=== PATIENT | male | born 1965 | race Hispanic/Latino ===

== ENCOUNTER 2018-09-03 08:39 | Emergency (ER) | payer OTHER, SELFPAY ==
[2018-09-03] MEDS ORDERED: SODIUM CHLORIDE 0.9% 1000ML 1,000 ML IV ONE (09:38)
[2018-09-03 09:43] LABS: BASOPHILS % (AUTO) 0.5 % (0.0-5.0); EOSINOPHILS % (AUTO) 3.4 % (0.0-8.0); HEMATOCRIT 32.9 % (42-54); LYMPHOCYTES % (AUTO) 24.1 % (21.0-51.0); MEAN CORPUSCULAR HGB CONC 30.8 g/dL (32.0-36.0); MEAN CORPUSCULAR VOLUME 64.8 fL (79-99); MONOCYTES % (AUTO) 11.1 % (3.0-13.0); NEUTROPHILS % (AUTO) 60.9 % (40.0-77.0); NUCLEATED RED BLOOD CELLS 0.1 % (0.0-0.19); PLATELET COUNT (AUTO) 243 K/uL (130-400); RED BLOOD CELL COUNT(AUTO) 5.08 MIL/uL (4.50-6.20); RED CELL DISTRIBUTION WIDTH 17.9 % (11.0-15.5)
[2018-09-03 09:51] LABS: POTASSIUM 3.3 mmol/L (3.5-5.1)
[2018-09-03 09:55] LABS: BILIRUBIN,TOTAL 0.3 mg/dL (0.2-1.0); TOTAL PROTEIN, SERUM 8.1 g/dL (6.0-8.3)
[2018-09-03] MEDS ORDERED: POTASSIUM CHLORIDE 20 MEQ ERTAB PO ONE (10:34)
[2018-09-03 10:40] LABS: APPEARANCE,URINE CLEAR (CLEAR); BILIRUBIN,URINE NEGATIVE (NEGATIVE); COLOR,URINE YELLOW (YELLOW); GLUCOSE, URINE (UA) NEGATIVE (NEGATIVE); KETONES,URINE NEGATIVE (NEGATIVE); LEUKOCYTE ESTERASE ,URINE NEGATIVE (NEGATIVE); NITRATE,URINE NEGATIVE (NEGATIVE); OCCULT BLOOD,URINE NEGATIVE (NEGATIVE); PH,URINE 5.5 (5.0-8.0); PROTEIN,URINE TRACE mg/dL (NEGATIVE); UROBILINOGEN,URINE 0.2 mg/dL (0.2-1.0)
[2018-09-03 10:50] LABS: RBC,URINE 0-1 /HPF (0-1); WBC,URINE 0-1 /HPF (0-1)
[2018-09-03 10:51] LABS: BACTERIA,URINE Rare /HPF (None Seen); HYALINE CASTS, URINE 0-1 /LPF (0-1 /LPF); MUCUS,URINE Few LPF (None Seen); SQUAMOUS EPITHELIAL CELL,UR 0-2 /HPF (0-2)
== END 2018-09-03 10:45 | disposition home or self-care (01) ==
LOC: EDH 08:39
DX: E87.6 Hypokalemia (principal); R19.7 Diarrhea, unspecified; D64.9 Anemia, unspecified; I10 Essential (primary) hypertension; K21.9 Gastro-esophageal reflux disease without esophagitis; Z91.013 Allergy to seafood
CPT/HCPCS: 36415; 80053; 81001; 83690; 85025; 96360; 99284; J7030

== ENCOUNTER 2024-09-23 08:17 | Inpatient (IN) | payer SELFPAY ==
[~2024-09-23] VITALS: Ht 167.6 cm; Wt 79.0 kg
--- NOTE | 2024-09-23 09:00 | ERN ---
General Chief Complaint: Hemorrhoids Stated Complaint: HEMORRHOIDS Time Seen by MD: 08:20 Source: patient History of Present Illness Initial Comments Mr. Jensen is a 59-year-old male patient came to the ER with pain in the perianal area. Patient has previous history of recurrent hemorrhoids and rectal prolapse. He says pain started yesterday after a bout of diarrhea associated with fever and chills, but does not have diarrhea today. Patient states he has 10/10 pain, worse during defecation. Patient sates he took 800 mg of Ibuprofen for the pain yesterday. Patient denies constipation and says he passes soft sto ols. Patient states he notices scanty blood on wiping with toilet paper, however had prior episodes of red blood in stools in the preceding months. He had a normal colonoscopy several years ago. Patient has a PMH of anemia and is currently taking iron pills. Allergies: Coded Allergies: shrimp (Unverified Allergy, Unknown, 09/03/18) Past Medical History Past Medical History: Anemia Past Surgical History: None ROS Dictation CONSTITUTIONAL: No chills, no fever, no weakness, no diaphoresis, no malaise. HEAD/FACE: No signs of trauma. EENT: No eye pain, no blurred vision, no tearing, no double vision, no ear pain, no ear discharge, no nose pain, no nasal congestion, no throat pain, no throat swelling, no mouth pain. RESPIRATORY: No cough, no SOB, no orthopnea, no PND, no wheezing. CARDIOVASCULAR: No chest pain, no edema, no palpitations, no syncope. GASTROINTESTINAL/ABDOMINAL: Severe perianal pain, No abdominal pain, no constipation, no diarrhea, no nausea, no vomiting. GENITOURINARY: No abnormal discharge, no dysuria, no frequent urination, no hematuria. No complaints of pain in the genitals. MUSCULOSKELETAL: No back pain, no gout, no joint pain, no joint swelling, no muscle pain, no muscle stiffness, no neck pain. INTEGUMENTARY: No change in color, no change in hair/nails, no dryness, no lesion, no lumps, no rash. NEUROLOGICAL/PSYCH: No anxiety, not depressed, no emotional problem, no headache, no numbness, no pre-existing deficit, no history of seizures, no tremors, no weakness. HEMATOLOGIC/LYMPHATIC: Not anemic, no history of blood clots, no apparent bleeding, no bruising, glands not swollen. All Systems Negative, Except as Noted. Physical Exam Physical Exam Dictation VITAL SIGNS: Reviewed. GENERAL APPEARANCE: Alert, oriented x3 HEAD AND FACE: Non-traumatic. EYES: PERRL, pink conjunctivas, eyelid no trauma, anterior chamber clear. EARS: Pinnas intact and no signs of trauma or erythema. Ear canals clear and no discharge. TMs no erythema. NOSE: No discharge, no bleeding. OROPHARYNX: Mouth normal, teeth no caries, tongue pink. Pharynx clear, no erythema. Tonsils no exudates, no abscesses noted. Mucous membrane moist. NECK: Supple, non-tender, no thyromegaly, no masses, no JVD, no bruits. BREAST: Deferred. CHEST: No tenderness, no crepitus, no paradoxical movement, no retractions. LUNGS: Clear, well-ventilated, symmetric, no rales, no wheezing, no rhonchi, no stridor, good breath sounds bilaterally. HEART: Regular rate, regular rhythm, no murmur, no gallops. VASCULAR: No peripheral edema. ABDOMEN: Soft, positive bowel sounds, nondistended, no guarding, nontender, no rebound, no masses no hepatomegaly, no splenomegaly, no Ayala's sign, no hernias. RECTAL: Nodular irregular swelling in the perianal area, friable skin, skin tags, tender to palpation, clotted blood present, non-reducible . GENITAL: Deferred. NEUROLOGICAL: Normal speech, gross motor function intact, gross sensory function intact. MUSCULOSKELETAL: Neck nontender, full range of motion, back nontender, full range of motion. EXTREMITIES: Nontender, full range of motion. SKIN: Color pink, dry, no turgor, no rash, no lacerations, no abrasions, no contusions. LYMPHATICS: Deferred. Results Laboratory and Microbiology Lab and Micro Result Laboratory Tests Test 09/23/24 09:24 09/23/24 10:46 09/23/24 11:17 Sodium Level 143 mmol/L (136-145) Potassium Level 3.3 mmol/L (3.5-5.1) L Chloride Level 107 mmol/L (101-111) Carbon Dioxide Level 30 mmol/L (21-32) Blood Urea Nitrogen 11 mg/dL (7-18) Creatinine 0.8 mg/dL (0.5-1.3) Glomerular Filtration Rate Calc 101 mL/min (>90) Random Glucose 103 mg/dL (70-105) Total Calcium 8.5 mg/dL (8.5-10.1) White Blood Count 4.2 K/uL (4.8-10.8) L Red Blood Count 3.88 MIL/uL (4.50-6.20) L Hemoglobin 6.1 g/dL (14.0-18.0) *L Hematocrit 23.8 % (42-54) L Mean Corpuscular Volume 61.3 fL (79-99) L Mean Corpuscular Hemoglobin 15.7 pg (27.0-33.0) L Mean Corpuscular Hemoglobin Concent 25.6 g/dL (32.0-36.0) L Red Cell Distribution Width 23.4 % (11.0-15.5) H Platelet Count 445 K/uL (130-400) H Mean Platelet Volume 9.7 fL (7.5-10.5) Immature Granulocyte % (Auto) 3.3 % (0-1) H Neutrophils (%) (Auto) 55.1 % (40.0-77.0) Lymphocytes (%) (Auto) 30.1 % (21.0-51.0) Monocytes (%) (Auto) 10.0 % (3.0-13.0) Eosinophils (%) (Auto) 1.0 % (0.0-8.0) Basophils (%) (Auto) 0.5 % (0.0-5.0) Neutrophils # (Auto) 2.3 K/uL (1.8-7.7) Lymphocytes # (Auto) 1.3 K/uL (1.0-4.8) Monocytes # (Auto) 0.4 K/uL (0.1-1.0) Eosinophils # (Auto) 0.04 K/uL (0.00-0.70) Basophils # (Auto) 0.02 K/uL (0.00-0.20) Absolute Immature Granulocyte (auto 0.14 K/uL (0-1) Segmented Neutrophils % 50 % (40-70) Lymphocytes % (Manual) 25 % (22-44) Monocytes % (Manual) 13 % (2-9) H Eosinophils % (Manual) 1 % (1-6) Metamyelocytes % 1 % (0-0) H Myelocytes % 2 % (0-0) H Promyelocytes % 2 (0-0) H Nucleated Red Blood Cells 3.0 % (0.0-0.19) H Differential Comment Reactive Lymphocytes 6 % (0-0) H White Cell Morphology Comment See comments Platelet Morphology Comment ADEQUATE Red Blood Cell Morphology See comments Urine Color LIGHT-BROWN (YELLOW) Urine Appearance CLEAR (CLEAR) Urine pH 5.5 (5.0-8.0) Urine Specific [place] 1.011 (1.001-1.031) Urine Protein NEGATIVE mg/dL (NEGATIVE) Urine Glucose (UA) NEGATIVE mg/dL (NEGATIVE) Urine Ketones NEGATIVE mg/dL (NEGATIVE) Urine Occult Blood NEGATIVE (NEGATIVE) Urine Nitrate NEGATIVE (NEGATIVE) Urine Bilirubin NEGATIVE mg/dL (NEGATIVE) Urine Urobilinogen 0.2 mg/dL (0.2-1.0) Urine Leukocyte Esterase NEGATIVE [place]/uL Labs Reviewed?: Yes EKG/XRAY/US/CT/MRI CT Scan Comment [place] [id number] [address] IMAGING REPORT Signed PATIENT: ALEXANDER JENSEN MR#: [id number] : 1965 SEX: M AGE: 59 LOCATION: [facility] ORDER 9 STATUS: [facility] REPORT#: [id number] SERVICE 6 REASON: SUSPICIOUS MALIGNANT PERIANAL LESION ORDERING PHYSICIAN: LAKEISHA ESTRADA MD PROCEDURE: ABD PEL WO - CT ABDOMEN/PELVIS W/O CONTRAST EXAM: CT Abdomen and Pelvis Without IV contrast CLINICAL HISTORY: SUSPICIOUS MALIGNANT PERIANAL LESION TECHNIQUE: Axial computed tomography images of the abdomen and pelvis without intravenous contrast. CONTRAST: No IV contrast. COMPARISON: None provided. FINDINGS: LUNG BASES: The lung bases appear clear. No pleural effusions are seen. LIVER: Unremarkable. GALLBLADDER AND BILE DUCTS: The gallbladder appears within normal limits. No radioopaque gallstones are seen. No biliary ductal dilatation is evident. PANCREAS: Unremarkable. SPLEEN: Unremarkable. ADRENAL GLANDS: Unremarkable. KIDNEYS, URETERS, AND BLADDER: The kidneys appear within normal limits. There is no hydronephrosis or hydroureter. No urinary calculi are seen. STOMACH AND BOWEL: Large sliding and paraesophageal hiatus hernia. Irregular thickening in the rectum. Tiny peripheral calcific foci. Colonic diverticulosis without diverticulitis. Unremarkable appearance of the small bowel. No evidence of bowel obstruction. APPENDIX: No evidence of acute appendicitis on CT examination. PERITONEUM: No free fluid. No free air. LYMPH NODES: No lymphadenopathy is evident. REPRODUCTIVE: Unremarkable as visualized. VASCULATURE: Atherosclerotic changes in the form of eccentric vessel wall calcification in the abdominal aorta and its major branches. No evidence of abdominal aortic aneurysm. BONES: Degenerative changes in the visualised spine in the form of marginal osteophytes and degenerative discs at multiple lumbar levels. Sclerotic focus at L2 vertebra. These may reflect bone islands. No aggressive appearing osseous lesion. No acute osseous pathology is evident. IMPRESSION: 1. Irregular rectal wall thickening. Suggested histopathological correlation. 2. Large sliding and paraesophageal hiatal hernia. 3. Colonic diverticulosis without diverticulitis. /[place] DICTATED BY: BRIAN MEDRANO Jr., MD DATE: 09/23/241441 ELECTRONICALLY SIGNED BY: BRIAN MEDRANO Jr., MD DATE: 09/23/241441 [facility] MDM: Differential diagnosis: Prolapsed rectum, colorectal cancer, Teratoma of anus, thrombosed hemorrhoids, Iron deficiency anemia for GI blood loss. Rationale: Tests considered and ordered secondary to shared decision making include: Previous outside records reviewed: Old ER visits. Risk of complication and/or morbidity or mortality of patient management: None Medications-Per medication reconciliation Need for hospitalization: Patient does meet criteria for hospitalization. Need for emergency major/minor surgery: No There are no social concerns with this patient. Prescription drug management Prescriptions will include symptomatic care Patient presented to the ED with pain in the perianal region since last night. On examination a friable, tender, irregular mass noted in the anal canal. Lizzeth ent blood work revealed severe iron deficiency anemia Hgb 6, HCT 23.8. Patient refused blood transfusion due to congregational reasons. Patient CT showed irregular rectal wall thickening. Patient was given symptomatic treatment for pain with Acetaminophen and topical Lidocaine. We decided to admit the patient for management of anemia and evaluation for Colorectal cancer. ED Course Orders Procedure Category Date Status Time Lidocaine Hcl 1% 20ml PHA 09/23/24 Complete Vial (Lidocaine Hc 08:46 Tetanus,Diphtheria PHA 09/23/24 Complete Tox [Adult] (Diphther 09:00 Basic Metabolic Panel LAB 09/23/24 Complete 09:17 Ct Abdomen/Pelvis W/O CT 09/23/24 Resulted Contrast 09:17 Cbc With Differential LAB 09/23/24 Complete 10:45 Urinalysis Profile LAB 09/23/24 Complete 11:19 Manual Differential LAB 09/23/24 Complete 10:46 Acetaminophen 500mg PHA 09/23/24 Complete Tab (Tylenol 500mg T 12:30 Lidocaine Hcl 2% PHA 09/23/24 Complete Viscous (Lidocaine Hcl 12:30 Current Medications Medications (Trade) Dose Ordered Sig/Criselda Route PRN Reason Start Time Stop Time Status Last Admin Dose Admin Acetaminophen (TYLenol 500MG TAB) 1,000 mg ONCE ONCE PO 09/23/24 12:30 09/23/24 12:31 DC 09/23/24 13:54 Lidocaine HCl (Lidocaine HCl 1% 20ml Vial) 20 ml ONCE STAT INJ 09/23/24 08:46 09/23/24 08:50 DC 09/23/24 09:03 Lidocaine HCl (Lidocaine HCl 2% Viscous) 10 ml ONCE ONCE MM 09/23/24 12:30 09/23/24 12:31 DC 09/23/24 13:54 Tetanus/ Diphtheria Toxoids Adsorbed (DiphthERIA-teTANUS TOXOID [ADULT]/ DECAVAC) 0.5 ml ONCE ONCE IM 09/23/24 09:00 09/23/24 09:01 DC 09/23/24 09:06 Vital Signs Date Time Temp Pulse Resp B/P (MAP) Pulse Ox O2 Delivery O2 Flow Rate FiO2 09/23/24 12:23 76 18 139/69 99 Room Air* 0 21 09/23/24 09:41 98.8 82 18 153/63 99 Room Air* 0 21 09/23/24 08:35 98.8 80 18 151/82 99 Room Air* 0 21 09/23/24 08:19 98.8 82 19 147/82 99 Room Air 0 DX & DISP Disposition: Inpatient Decision to Admit Time: 14:15 Departure Impression: Primary Impression: Perianal lesion Additional Impressions: Iron deficiency anemia due to chronic blood loss, Hypokalemia Condition: Stable Referrals: MIGUEL PIERRE MD (PCP) LAKEISHA ESTRADA MD Sep 23, 2024 09:00 COLLETTE MORRELL MD Sep 23, 2024 13:48
[2024-09-23] MEDS: LIDOCAINE HCL 1% 20 ML VIAL INJ STA (09:03)
[2024-09-23 09:47] LABS: CREATININE 0.8 mg/dL (0.5-1.3); GLOMERULAR FILTR. RATE CALC 101.0 mL/min (>90); GLUCOSE,RANDOM 103.0 mg/dL (70-105); SODIUM SERUM 143.0 mmol/L (136-145); UREA NITROGEN, BLOOD 11.0 mg/dL (7-18)
[2024-09-23 11:33] LABS: IMMATURE GRANULOCYTE ABSOLUTE 0.14 K/uL (0-1); PLATELET COUNT (AUTO) 445 K/uL (130-400); RED BLOOD CELL COUNT(AUTO) 3.88 MIL/uL (4.50-6.20); RED CELL DISTRIBUTION WIDTH 23.4 % (11.0-15.5); WHITE BLOOD COUNT (AUTO) 4.2 K/uL (4.8-10.8)
[2024-09-23 11:47] LABS: APPEARANCE,URINE CLEAR (CLEAR); GLUCOSE, URINE (UA) NEGATIVE (NEGATIVE); LEUKOCYTE ESTERASE ,URINE NEGATIVE Leu/uL (NEGATIVE); NITRATE,URINE NEGATIVE (NEGATIVE); OCCULT BLOOD,URINE NEGATIVE (NEGATIVE)
--- NOTE | 2024-09-23 11:47 | NUR ---
PT AOX4 AWARE OF HBG/HCT LEVELS AND NEEDING A BLOOD TRANSFUSION. PT REFUSING BLOOD TRANSFUSION. ADVISED OF THE POSSIBLE RISKS OF REFUSING TREATMENT. CONTINUES TO REFUSE. NOTIFIED ER REFUSAL OF TREATMENT DONE.
[2024-09-23 11:57] LABS: ADD UA MICROSCOPIC NO
[2024-09-23 12:26] LABS: EOSINOPHILS % (MANUAL) 1 % (1-6); LYMPHOCYTES % (MANUAL) 25 % (22-44); METAMYELOCYTES % 1 % (0-0); MONOCYTES % (MANUAL) 13 % (2-9); MYELOCYTES % 2 % (0-0); NUCLEATED RED BLOOD CELLS 3.0 % (0.0-0.19); PROMYELOCYTES % 2 (0-0); REACTIVE LYMPHOCYTES 6 % (0-0); SEGMENTED NEUTROPHILS % 50 % (40-70)
[2024-09-23 12:30] LABS: PLATELET MORPHOLOGY COMMENT ADEQUATE
--- NOTE | 2024-09-23 13:43 | HMCIMG ---
EXAM: CT Abdomen and Pelvis Without IV contrast CLINICAL HISTORY: SUSPICIOUS MALIGNANT PERIANAL LESION TECHNIQUE: Axial computed tomography images of the abdomen and pelvis without intravenous contrast. CONTRAST: No IV contrast. COMPARISON: None provided. FINDINGS: LUNG BASES: The lung bases appear clear. No pleural effusions are seen. LIVER: Unremarkable. GALLBLADDER AND BILE DUCTS: The gallbladder appears within normal limits. No radioopaque gallstones are seen. No biliary ductal dilatation is evident. PANCREAS: Unremarkable. SPLEEN: Unremarkable. ADRENAL GLANDS: Unremarkable. KIDNEYS, URETERS, AND BLADDER: The kidneys appear within normal limits. There is no hydronephrosis or hydroureter. No urinary calculi are seen. STOMACH AND BOWEL: Large sliding and paraesophageal hiatus hernia. Irregular thickening in the rectum. Tiny peripheral calcific foci. Colonic diverticulosis without diverticulitis. Unremarkable appearance of the small bowel. No evidence of bowel obstruction. APPENDIX: No evidence of acute appendicitis on CT examination. PERITONEUM: No free fluid. No free air. LYMPH NODES: No lymphadenopathy is evident. REPRODUCTIVE: Unremarkable as visualized. VASCULATURE: Atherosclerotic changes in the form of eccentric vessel wall calcification in the abdominal aorta and its major branches. No evidence of abdominal aortic aneurysm. BONES: Degenerative changes in the visualised spine in the form of marginal osteophytes and degenerative discs at multiple lumbar levels. Sclerotic focus at L2 vertebra. These may reflect bone islands. No aggressive appearing osseous lesion. No acute osseous pathology is evident. IMPRESSION: 1. Irregular rectal wall thickening. Suggested histopathological correlation. 2. Large sliding and paraesophageal hiatal hernia. 3. Colonic diverticulosis without diverticulitis. /[place]
[2024-09-23] MEDS: LIDOCAINE HCL 2% VISCOUS 15 ML UDCUP MM ONE (13:54)
--- NOTE | 2024-09-23 14:00 | NUR ---
DR ANTHONY AT BEDSIDE
[2024-09-23] MEDS: 0.9%NACL 1000ML 1,000 ML IV SCH (14:30)
--- NOTE | 2024-09-23 14:52 | NUR ---
DR BARTLETT GI CONSULT DONE BY DR ANTHONY Addendum: 09/23/24 at [address] BARTLETT AWARE WILL SEE PATIENT NO NEW ORDERS AT THIS TIME
--- NOTE | 2024-09-23 14:53 | NUR ---
DR [facility] CONSULT CALLED AND AWARE.
--- NOTE | 2024-09-23 14:53 | NUR ---
DR MA HEMATOLOGY CALLED.
[2024-09-23] MEDS: PoTASSium chloRIDE 20MEQ ER 20 MEQ ERTAB PO ONE ×2 (15:00→20:59)
[2024-09-23 15:03] LABS: ASPARTATE AMINOTRANSFERASE 14.0 U/L (10-37); TOTAL PROTEIN, SERUM 7.3 g/dL (6.0-8.3)
--- NOTE | 2024-09-23 15:31 | NUR ---
REPORT CALLED AND GIVEN TO TRANG AT THIS TIME.
[2024-09-23 15:33] LABS: INR 1.12 (0.85-1.15)
[2024-09-23 15:34] LABS: % IRON SATURATION 4.4 % (30-44); IRON, SERUM 19.0 mcg/dL (65-175)
[2024-09-23 15:50] VITALS: BP 139/82; PULSE 78; RESP 18; TEMP 98.7; O2SAT 98
--- NOTE | 2024-09-23 16:51 | HP ---
[facility] HISTORY AND PHYSICAL Date of Service: Sep 23, 2024 Time of Service: 16:43 HISTORY OF PRESENT ILLNESS: Date of service: 09/23/2024, patient was seen in ER room 16 This is a 59-year-old male who is a Latter-day with history of anemia, prior history of hemorrhoids, possible prior history of rectal prolapse, who presented to the ER for further evaluation of rectal pain, tenesmus with having a bowel movement. Pain started about 3-4 days ago and is worsened with having a bowel movement. Patient also noticed blood with wiping. Patient states that he saw his PCP few days ago and was referred to a specialist for further evaluati on. Reports having previous history of hemorrhoids as well with intermittent mild bleeding. Patient reports that maybe about 10 years ago, he had possible history of rectal prolapse which was reduced by a specialist. He has had colonoscopy 5-6 years ago and does not remember the results. Denies any significant fevers or chills otherwise. Denies previous history of gastric ucle rs. Patient states that he is using ibuprofen about four times a day for pain control for about a week. He has also been taking iron. He has noticed that few days ago, stool was dark in color. Denies any hematemesis. Patient has declined any blood transfusion as he is a Latter-day. He has been told previously about a year ago that he is anemic. On presentation to the hospital, patient was noted to be afebrile with T-max of 98.8 F, heart rate of 82, blood pressure of 147/82. Labs on presentation showed WBC count of 4200, hemoglobin of 6.1, platelet count of 268248. BMP remarkable for sodium of 143, potassium 3.3, BUN of 11 , creatinine 0.8. Underwent CT abdomen pelvis without IV contrast showed irregular rectal wall thickening. Per ER physician, rectal examination showed nodular irregular swelling in the perianal area with hemorrhoids and possible rectal mass. Patient will be admitted for further treatment and management. Patient's case was discussed with Dr. Quintanilla with Gastroenterology and patient's case was also discussed with Dr. Brooks with General surgery. We will start patient on IV iron supplementation given severe anemia as well. REVIEW OF SYSTEMS CONSTITUTIONAL: Denies fevers, chills, or night sweats. No unintentional weight loss reported. NEUROLOGICAL: Denies headache, amaurosis fugax, motor weakness, sensory deficit, vertigo/spinning sensation, gait abnormalities, or tremors. ENT: No hearing loss, otalgia, otorrhea, rhinitis, rhinorrhea, hoarseness, or sore throat. CARDIOVASCULAR: Denies any exertional angina, dyspnea on exertion, orthopnea, paroxysmal nocturnal dyspnea, palpitations, life-threatening arrhythmias, claudication. PULMONARY: Denies any shortness of breath, cough, phlegm/sputum, hemoptysis, pleuritic chest pain. SLEEP: Denies morning headaches, daytime somnolence or napping. Denies difficulty falling asleep, staying asleep, waking from sleep. Denies knowledge of snoring. GASTROINTESTINAL: rectal pain, tenesmus, hx of hemorrhoids, hematochezia when he wipes GENITOURINARY: Denies frequency, urgency, nocturia, hematuria or incontinence (Storage/Irritative symptoms.) Low urinary stream, straining to void, urinary intermittency or hesitancy, splitting of the voiding stream, terminal dribbling. ENDOCRINOLOGIC: Denies polyuria, polydipsia, polyphagia or heat/cold intolerances. HEMATOLOGIC: Denies thrombophilia/previous clots, or coagulopathy/bleeding disorders. ONCOLOGIC: Denies personal history of malignancy. DERMATOLOGIC: Denies rashes or pruritus. PSYCHIATRIC: Denies any suicidal or homicidal ideation. Denies hallucinations. PAST MEDICAL HISTORY: History of anemia, history of hemorrhoids, possible history of rectal prolapse several years ago PAST SURGICAL HISTORY: Reports having had colonoscopy pre COVID, about 5-6 years ago PAST SOCIAL HISTORY: Denies active smoking, drinks socially FAMILY HISTORY: Mother had breast cancer about 40-50 years ago Allergies to shrimp Coded Allergies: shrimp (Unverified Allergy, Unknown, 09/03/18) PHYSICAL EXAM GENERAL APPEARANCE: The patient is awake, alert, and oriented, in no acute cardiopulmonary distress. NEUROLOGICAL: Cranial nerves II-XII grossly intact. Motor is 5/5 in bilateral upper and lower extremities proximal to distal. No sensory deficits. HEENT: Face is symmetric. Pupils are equal and reactive. Extraocular movements are intact. NECK: Supple. No JVD. No thyromegaly. No submental, submandibular, pre- /postauricular, occipital or supraclavicular lymphadenopathy. CHEST: Normal chest expansion. No Telemetry. LUNGS: Absence of any rales, rhonchi or any wheezing. CARDIOVASCULAR: Regular. S1 and S2 normal. No appreciable rubs, murmurs or gallops. ABDOMEN: Soft, nontender, and nondistended. There is no rebound, voluntary guarding, or rigidity. : couldn't do a through rectal exam due to pain, there is swelling around to anorectal region with possible hemorrhoids or prolapse EXTREMITIES: Non-edematous and not cyanotic. No clubbing. Good capillary refill. SKIN: No skin breakdown. Vital Sign (Last 24 Hours) 09/23/24 14:39 Temp 98.8 Pulse 72 Resp 18 B/P (MAP) 127/68 Pulse Ox 99 O2 Delivery Room Air* O2 Flow Rate 0 FiO2 21 LABS: Laboratory: Test 09/23/24 15:10 09/23/24 11:17 09/23/24 10:46 09/23/24 09:24 Range/Units Prothrombin Time 11.7 H 9.6-11.6 SEC Prothromb Time International Ratio 1.12 0.85-1.15 Activated Partial Thromboplast Time 26.9 26.3-35.5 SEC Iron Level 19 L 65-175 mcg/dL Total Iron Binding Capacity 428 250-450 mcg/dL Percent Iron Saturation 4.4 L 30-44 % Ferritin 9 L 30-400 ng/mL Urine Color LIGHT-BROWN YELLOW Urine Appearance CLEAR CLEAR Urine pH 5.5 5.0-8.0 Urine Specific [place] 1.011 1.001-1.031 Urine Protein NEGATIVE NEGATIVE mg/dL Urine Glucose (UA) NEGATIVE NEGATIVE mg/dL Urine Ketones NEGATIVE NEGATIVE mg/dL Urine Occult Blood NEGATIVE NEGATIVE Urine Nitrate NEGATIVE NEGATIVE Urine Bilirubin NEGATIVE NEGATIVE mg/dL Urine Urobilinogen 0.2 0.2-1.0 mg/dL Urine Leukocyte Esterase NEGATIVE NEGATIVE Chap[place]rit[place]/uL White Blood Count 4.2 L 4.8-10.8 K/uL Red Blood Count 3.88 L 4.50-6.20 MIL/uL Hemoglobin 6.1 *L 14.0-18.0 g/dL Hematocrit 23.8 L 42-54 % Mean Corpuscular Volume 61.3 L 79-99 fL Mean Corpuscular Hemoglobin 15.7 L 27.0-33.0 pg Mean Corpuscular Hemoglobin Concent 25.6 L 32.0-36.0 g/dL Red Cell Distribution Width 23.4 H 11.0-15.5 % Platelet Count 445 H 130-400 K/uL Mean Platelet Volume 9.7 7.5-10.5 fL Immature Granulocyte % (Auto) 3.3 H 0-1 % Neutrophils (%) (Auto) 55.1 40.0-77.0 % Lymphocytes (%) (Auto) 30.1 21.0-51.0 % Monocytes (%) (Auto) 10.0 3.0-13.0 % Eosinophils (%) (Auto) 1.0 0.0-8.0 % Basophils (%) (Auto) 0.5 0.0-5.0 % Neutrophils # (Auto) 2.3 1.8-7.7 K/uL Lymphocytes # (Auto) 1.3 1.0-4.8 K/uL Monocytes # (Auto) 0.4 0.1-1.0 K/uL Eosinophils # (Auto) 0.04 0.00-0.70 K/uL Basophils # (Auto) 0.02 0.00-0.20 K/uL Absolute Immature Granulocyte (auto 0.14 0-1 K/uL Segmented Neutrophils % 50 40-70 % Lymphocytes % (Manual) 25 22-44 % Monocytes % (Manual) 13 H 2-9 % Eosinophils % (Manual) 1 1-6 % Metamyelocytes % 1 H 0-0 % Myelocytes % 2 H 0-0 % Promyelocytes % 2 H 0-0 Nucleated Red Blood Cells 3.0 H 0.0-0.19 % Differential Comment Reactive Lymphocytes 6 H 0-0 % White Cell Morphology Comment See comments Platelet Morphology Comment ADEQUATE Red Blood Cell Morphology See comments Sodium Level 143 136-145 mmol/L Potassium Level 3.3 L 3.5-5.1 mmol/L Chloride Level 107 101-111 mmol/L Carbon Dioxide Level 30 21-32 mmol/L Blood Urea Nitrogen 11 7-18 mg/dL Creatinine 0.8 0.5-1.3 mg/dL Glomerular Filtration Rate Calc 101 >90 mL/min Random Glucose 103 70-105 mg/dL Total Calcium 8.5 8.5-10.1 mg/dL Magnesium Level 2.20 1.80-2.40 mg/dL Total Bilirubin 0.5 0.2-1.0 mg/dL Direct Bilirubin 0.1 0.0-0.3 mg/dL Aspartate Amino Transf (AST/SGOT) 14 10-37 U/L Alanine Aminotransferase (ALT/SGPT) 23 12-78 U/L Alkaline Phosphatase 81 50-136 U/L Total Protein 7.3 6.0-8.3 g/dL Albumin 3.8 3.5-5.0 g/dL Thyroid Stimulating Hormone (TSH) 0.89 0.36-3.74 uIU/mL Current Medications Medications (Trade) Dose Ordered Sig/Criselda Route PRN Reason Start Time Stop Time Status Last Admin Dose Admin Acetaminophen (TYLenol 325MG TAB) 650 mg Q6H PRN PO MILD PAIN (1-3) 09/23/24 15:00 10/23/24 14:59 Folic Acid (FOLic ACID 1 MG TABLET) 1 mg DAILY PO 09/24/24 09:00 10/24/24 08:59 Iron Sucrose 300 mg/Sodium Chloride 250 ml @ 83 mls/hr Q24H IV 09/23/24 18:00 09/26/24 17:59 Lidocaine HCl (Lidocaine HCl 1% 20ml Vial) 20 ml ONCE STAT INJ 09/23/24 08:46 09/23/24 08:50 DC 09/23/24 09:03 20 ML Morphine Sulfate (morPHINE 2MG SYG) 2 mg Q6H PRN IVP SEVERE PAIN (7-10) 09/23/24 15:00 09/30/24 14:59 Ondansetron HCl (zoFRAN 4MG INJ) 4 mg Q6H PRN IVP NAUSEA/VOMITING 09/23/24 15:00 10/23/24 14:59 Pantoprazole Sodium (PROTonix 40MG INJ) 40 mg Q12H IVP 09/23/24 14:30 10/23/24 14:29 Sodium Chloride 1,000 ml @ 75 mls/hr [id number] IV 09/23/24 14:30 10/23/24 14:29 Vitamin B Complex (Vitamin B-12) 1,000 mcg DAILY PO 09/24/24 09:00 10/24/24 08:59 DIAGNOSTICS / RADIOLOGY: SERVICE 6 REASON: SUSPICIOUS MALIGNANT PERIANAL LESION ORDERING PHYSICIAN: LAKEISHA ESTRADA MD PROCEDURE: ABD PEL WO - CT ABDOMEN/PELVIS W/O CONTRAST EXAM: CT Abdomen and Pelvis Without IV contrast CLINICAL HISTORY: SUSPICIOUS MALIGNANT PERIANAL LESION TECHNIQUE: Axial computed tomography images of the abdomen and pelvis without intravenous contrast. CONTRAST: No IV contrast. COMPARISON: None provided. FINDINGS: LUNG BASES: The lung bases appear clear. No pleural effusions are seen. LIVER: Unremarkable. GALLBLADDER AND BILE DUCTS: The gallbladder appears within normal limits. No radioopaque gallstones are seen. No biliary ductal dilatation is evident. PANCREAS: Unremarkable. SPLEEN: Unremarkable. ADRENAL GLANDS: Unremarkable. KIDNEYS, URETERS, AND BLADDER: The kidneys appear within normal limits. There is no hydronephrosis or hydroureter. No urinary calculi are seen. STOMACH AND BOWEL: Large sliding and paraesophageal hiatus hernia. Irregular thickening in the rectum. Tiny peripheral calcific foci. Colonic diverticulosis without diverticulitis. Unremarkable appearance of the small bowel. No evidence of bowel obstruction. APPENDIX: No evidence of acute appendicitis on CT examination. PERITONEUM: No free fluid. No free air. LYMPH NODES: No lymphadenopathy is evident. REPRODUCTIVE: Unremarkable as visualized. VASCULATURE: Atherosclerotic changes in the form of eccentric vessel wall calcification in the abdominal aorta and its major branches. No evidence of abdominal aortic aneurysm. BONES: Degenerative changes in the visualised spine in the form of marginal osteophytes and degenerative discs at multiple lumbar levels. Sclerotic focus at L2 vertebra. These may reflect bone islands. No aggressive appearing osseous lesion. No acute osseous pathology is evident. IMPRESSION: 1. Irregular rectal wall thickening. Suggested histopathological correlation. 2. Large sliding and paraesophageal hiatal hernia. 3. Colonic diverticulosis without diverticulitis. /[place] ASSESSMENT: Severe iron Deficiency anemia, POA Acute on chronic anemia likely secondary to chronic GI bleeding, POA Rectal thickening with concerns for possible rectal prolapse versus hemorrhoids vs mass, POA Hiatal hernia, POA Prior history of hemorrhoids and rectal prolapse, POA Latter-day declining blood product transfusion, POA Hypokalemia, POA PLAN: Patient will be admitted to medical-surgical floor under telemetry monitoring Patient has declined any blood product transfusion, we will start patient on IV iron sucrose therapy x3 days, consultation with pulmonology will be requested, we will start patient on daily folic acid and vitamin B12 supplementation, we can also consider Epogen shot tomorrow Patient's case was discussed with Dr. Quintanilla with Gastroenterology, likely patient has hemorrhoids with rectals prolapse and will need r/o any mass lesion, patient will benefit from proctoscopy/colonoscopy for further evaluation, patient may benefit from EGD as well due to large hiatal hernia noted on abdominal CT We will start patient on IV Protonix 40 mg twice daily We will start patient on normal saline for IV fluids We will keep patient on SCDs for DVT prophylaxis All lab work to be done with pediatric tubes only We will recheck a CBC tomorrow, we will minimize any blood draws, we will check a CEA level as well Patient's case was discussed with Dr. Brooks with surgery, appreciate recommendations Monitor closely for fevers, signs of infection, empiric antibiotics if needed Date of service: 09/23/2024 Prognosis: Guarded Plan of care was discussed with patient at bedside, Sam Nowak MD Advanced Care Planning: Which of the following were discussed: Hospice care: Yes __ No _X_ Therapeutic options: Yes _X_ No __ Advance directives: Yes _X_ No __ Other discussions: Discussed with who?: Patient Voluntary nature of this service was explained to the patient? Yes _x_ No __ Amount of time spent: 20 minutes SAM NOWAK MD Sep 23, 2024 16:51
[2024-09-23 17:04] LABS: LACTATE DEHYDROGENASE 349.0 U/L (81-234)
--- NOTE | 2024-09-23 18:00 | NUR ---
PHYSICIAN ORDERS SPOKE WITH DR. BARTLETT, PER MD ORDER,START PATIENT ON CLEAR LIQUIDS ADMINISTER MAGNESIUM CITRATE AND LACTULOSE NOW. ADMINISTER DULCOLAX 10 MG PO AT 2100. PREPARE PATIENT FOR EDG 09/24, PER DR. BARTLETT WILL CALL WITH TIME LATER.
[2024-09-23] MEDS: LACTULOSE 20 GM/30 ML UDCUP PO ONE (19:43)
[2024-09-23] MEDS: MAGNESIUM CITRATE 296 ML SOLUTION PO ONE (19:43)
[2024-09-23 20:00] VITALS: BP 130/70; PULSE 84; RESP 20; TEMP 98.5
[2024-09-23] MEDS: ASCORBIC ACID 500 MG TAB PO SCH (22:30)
[2024-09-23 23:49] VITALS: BP 128/77; PULSE 73; RESP 20; TEMP 98.3
[2024-09-24] VITALS (14 sets, daily range): BP systolic 106–133; BP diastolic 55–80; PULSE 57–79; RESP 16–18; TEMP 98.4–98.8; O2SAT 99
--- NOTE | 2024-09-24 06:57 | NUR ---
PATIENT OFF UNIT FOR EGD AT THIS TIME
[2024-09-24] MEDS ORDERED: GLYCOPYRROLATE 0.2 MG/ML 5 ML VIAL ONE (07:08)
[2024-09-24] MEDS ORDERED: MIDAZOLAM HCL 1 MG/ML 2ML VIAL ONE (07:08)
[2024-09-24] MEDS ORDERED: LIDOCAINE PF 100MG/5ML (2%) SYRINGE 5ML ONE (07:09)
--- NOTE | 2024-09-24 07:46 | NUR ---
UNIT ARRIVAL PATIENT BACK FROM EGD. AWAKE ALERT AND ORIENTED. VITALS STABLE, PATIENT DENIES PAIN AT THIS TIME.
[2024-09-24] MEDS ORDERED: COMPOUND IV MISC 1 EACH IVSOLN MISC PRN (08:30)
[2024-09-24] MEDS: CYANOCOBALAMIN (VITAMIN B-12) 1,000 MCG TABLET PO SCH (09:15)
--- NOTE | 2024-09-24 10:51 | PN ---
[facility] PROGRESS NOTE Date of Service: Sep 24, 2024 Time of Service: 10:43 SUBJECTIVE: [ ] This is a 59-year-old male who is a Lutheran with history of anemia, prior history of hemorrhoids, possible prior history of rectal prolapse, who presented to the ER for further evaluation of rectal pain, tenesmus with having a bowel movement. Pain started about 3-4 days ago and is worsened with having a bowel movement. Patient also noticed blood with wiping. Patient states that he saw his PCP few days ago and was referred to a specialist for further evaluation. Reports having previous history of hemorrhoids as well with intermittent mild bleeding. Patient reports that maybe about 10 years ago, he had possible history of rectal prolapse which was reduced by a specialist. He has had colonoscopy 5-6 years ago and does not remember the results. Denies any significant fevers or chills otherwise. Denies previous history of GI issues. Patient states that he is using ibuprofen about four times a day for pain con trol for about a week. He has also been taking iron. He has noticed that few days ago, stool was dark in color. Denies any hematemesis. 09/24/2024. Patient went for EGD this morning. Patient continues with IV Venofer given to patient's denominational Jehovah Witness decline blood transfusion latest hemoglobin 6.3. As per Dr. Quintanilla colonoscopy we will be placed on hold for now given to patient's hemoglobin remains below seven. Patient denies abdominal pain patient reports having dark stools post EGD. We will monitor patient closely denied shortness a breath advised patient to use coli for assistance to bathroom voiced understanding. REVIEW OF SYSTEMS CONSTITUTIONAL: Denies fevers, chills, or night sweats. No unintentional weight loss reported. NEUROLOGICAL: Denies headache, amaurosis fugax, motor weakness, sensory deficit, vertigo/spinning sensation, gait abnormalities, or tremors. ENT: No hearing loss, otalgia, otorrhea, rhinitis, rhinorrhea, hoarseness, or sore throat. CARDIOVASCULAR: Denies any exertional angina, dyspnea on exertion, orthopnea, paroxysmal nocturnal dyspnea, palpitations, life-threatening arrhythmias, claudication. PULMONARY: Denies any shortness of breath, cough, phlegm/sputum, hemoptysis, pleuritic chest pain. SLEEP: Denies morning headaches, daytime somnolence or napping. Denies difficulty falling asleep, staying asleep, waking from sleep. Denies knowledge of snoring. GASTROINTESTINAL: rectal pain, tenesmus, hx of hemorrhoids, hematochezia when he wipes GENITOURINARY: Denies frequency, urgency, nocturia, hematuria or incontinence (Storage/Irritative symptoms.) Low urinary stream, straining to void, urinary intermittency or hesitancy, splitting of the voiding stream, terminal dribbling. ENDOCRINOLOGIC: Denies polyuria, polydipsia, polyphagia or heat/cold intolerances. HEMATOLOGIC: Denies thrombophilia/previous clots, or coagulopathy/bleeding disorders. ONCOLOGIC: Denies personal history of malignancy. DERMATOLOGIC: Denies rashes or pruritus. PSYCHIATRIC: Denies any suicidal or homicidal ideation. Denies hallucinations. PHYSICAL EXAM GENERAL APPEARANCE: The patient is awake, alert, and oriented, in no acute cardiopulmonary distress. NEUROLOGICAL: Cranial nerves II-XII grossly intact. Motor is 5/5 in bilateral upper and lower extremities proximal to distal. No sensory deficits. HEENT: Face is symmetric. Pupils are equal and reactive. Extraocular movements are intact. NECK: Supple. No JVD. No thyromegaly. No submental, submandibular, pre- /postauricular, occipital or supraclavicular lymphadenopathy. CHEST: Normal chest expansion. No Telemetry. LUNGS: Absence of any rales, rhonchi or any wheezing. CARDIOVASCULAR: Regular. S1 and S2 normal. No appreciable rubs, murmurs or gallops. ABDOMEN: Soft, nontender, and nondistended. There is no rebound, voluntary guarding, or rigidity. : couldn't do a through rectal exam due to pain, there is swelling around to anorectal region with possible hemorrhoids or mass EXTREMITIES: Non-edematous and not cyanotic. No clubbing. Good capillary refill. SKIN: No skin breakdown. Vital Signs (last 8hr) Date Time Temp Pulse Resp B/P (MAP) Pulse Ox O2 Delivery O2 Flow Rate FiO2 09/24/24 07:35 Mask 10.0 09/24/24 07:25 Mask 10.0 09/24/24 07:20 Mask 10.0 09/24/24 07:10 Mask 10.0 09/24/24 07:10 Mask 09/24/24 03:43 98.4 72 16 121/79 100 Room Air LABS: Laboratory: Test 09/24/24 05:50 09/24/24 04:10 09/23/24 15:10 09/23/24 11:17 Range/Units Stool Occult Blood NEGATIVE NEGATIVE Hemoglobin 6.3 *L 14.0-18.0 g/dL Hematocrit 24.9 L 42-54 % Folic Acid (LAB) > 20.00 H 2-20 ng/mL Erythrocyte Sedimentation Rate 7 0-20 MM/HR Prothrombin Time 11.7 H 9.6-11.6 SEC Prothromb Time International Ratio 1.12 0.85-1.15 Activated Partial Thromboplast Time 26.9 26.3-35.5 SEC Iron Level 19 L 65-175 mcg/dL Total Iron Binding Capacity 428 250-450 mcg/dL Percent Iron Saturation 4.4 L 30-44 % Ferritin 9 L 30-400 ng/mL Lactate Dehydrogenase 349 H 81-234 U/L C-Reactive Protein, Quantitative 16.10 H 0.5-3.0 mg/L Procalcitonin 0.32 0.05-0.5 ng/mL Urine Color LIGHT-BROWN YELLOW Urine Appearance CLEAR CLEAR Urine pH 5.5 5.0-8.0 Urine Specific [place] 1.011 1.001-1.031 Urine Protein NEGATIVE NEGATIVE mg/dL Urine Glucose (UA) NEGATIVE NEGATIVE mg/dL Urine Ketones NEGATIVE NEGATIVE mg/dL Urine Occult Blood NEGATIVE NEGATIVE Urine Nitrate NEGATIVE NEGATIVE Urine Bilirubin NEGATIVE NEGATIVE mg/dL Urine Urobilinogen 0.2 0.2-1.0 mg/dL Urine Leukocyte Esterase NEGATIVE NEGATIVE Chaparrita/uL Test 09/23/24 10:46 09/23/24 09:24 Range/Units White Blood Count 4.2 L 4.8-10.8 K/uL Red Blood Count 3.88 L 4.50-6.20 MIL/uL Mean Corpuscular Volume 61.3 L 79-99 fL Mean Corpuscular Hemoglobin 15.7 L 27.0-33.0 pg Mean Corpuscular Hemoglobin Concent 25.6 L 32.0-36.0 g/dL Red Cell Distribution Width 23.4 H 11.0-15.5 % Platelet Count 445 H 130-400 K/uL Mean Platelet Volume 9.7 7.5-10.5 fL Immature Granulocyte % (Auto) 3.3 H 0-1 % Neutrophils (%) (Auto) 55.1 40.0-77.0 % Lymphocytes (%) (Auto) 30.1 21.0-51.0 % Monocytes (%) (Auto) 10.0 3.0-13.0 % Eosinophils (%) (Auto) 1.0 0.0-8.0 % Basophils (%) (Auto) 0.5 0.0-5.0 % Neutrophils # (Auto) 2.3 1.8-7.7 K/uL Lymphocytes # (Auto) 1.3 1.0-4.8 K/uL Monocytes # (Auto) 0.4 0.1-1.0 K/uL Eosinophils # (Auto) 0.04 0.00-0.70 K/uL Basophils # (Auto) 0.02 0.00-0.20 K/uL Absolute Immature Granulocyte (auto 0.14 0-1 K/uL Segmented Neutrophils % 50 40-70 % Lymphocytes % (Manual) 25 22-44 % Monocytes % (Manual) 13 H 2-9 % Eosinophils % (Manual) 1 1-6 % Metamyelocytes % 1 H 0-0 % Myelocytes % 2 H 0-0 % Promyelocytes % 2 H 0-0 Nucleated Red Blood Cells 3.0 H 0.0-0.19 % Differential Comment Reactive Lymphocytes 6 H 0-0 % White Cell Morphology Comment See comments Platelet Morphology Comment ADEQUATE Red Blood Cell Morphology See comments Sodium Level 143 136-145 mmol/L Potassium Level 3.3 L 3.5-5.1 mmol/L Chloride Level 107 101-111 mmol/L Carbon Dioxide Level 30 21-32 mmol/L Blood Urea Nitrogen 11 7-18 mg/dL Creatinine 0.8 0.5-1.3 mg/dL Glomerular Filtration Rate Calc 101 >90 mL/min Random Glucose 103 70-105 mg/dL Total Calcium 8.5 8.5-10.1 mg/dL Magnesium Level 2.20 1.80-2.40 mg/dL Total Bilirubin 0.5 0.2-1.0 mg/dL Direct Bilirubin 0.1 0.0-0.3 mg/dL Aspartate Amino Transf (AST/SGOT) 14 10-37 U/L Alanine Aminotransferase (ALT/SGPT) 23 12-78 U/L Alkaline Phosphatase 81 50-136 U/L Total Protein 7.3 6.0-8.3 g/dL Albumin 3.8 3.5-5.0 g/dL Thyroid Stimulating Hormone (TSH) 0.89 0.36-3.74 uIU/mL Current Medications Medications (Trade) Dose Ordered Sig/Criselda Route PRN Reason Start Time Stop Time Status Last Admin Dose Admin Acetaminophen (TYLenol 325MG TAB) 650 mg Q6H PRN PO MILD PAIN (1-3) 09/23/24 15:00 10/23/24 14:59 Ascorbic Acid (Vitamin C 500mg Tab) 250 mg BID PO 09/23/24 22:30 10/23/24 22:29 09/24/24 09:15 250 MG Folic Acid (FOLic ACID 1 MG TABLET) 1 mg DAILY PO 09/24/24 09:00 10/24/24 08:59 09/24/24 09:14 1 MG Hydrocortisone Acetate (anuSOL-HC 25MG SUPP) 1 supp DAILY IA 09/23/24 22:30 10/23/24 22:29 Iron Sucrose 300 mg/Sodium Chloride 250 ml @ 83 mls/hr Q24H IV 09/23/24 18:00 09/26/24 22:00 09/23/24 19:43 83 MLS/HR Lidocaine HCl (Lidocaine HCl 1% 20ml Vial) 20 ml ONCE STAT INJ 09/23/24 08:46 09/23/24 08:50 DC 09/23/24 09:03 20 ML Morphine Sulfate (morPHINE 2MG SYG) 2 mg Q6H PRN IVP SEVERE PAIN (7-10) 09/23/24 15:00 09/30/24 14:59 Ondansetron HCl (zoFRAN 4MG INJ) 4 mg Q6H PRN IVP NAUSEA/VOMITING 09/23/24 15:00 10/23/24 14:59 Pantoprazole Sodium (PROTonix 40MG INJ) 40 mg Q12H IVP 09/23/24 14:30 09/24/24 08:24 DC 09/23/24 19:43 40 MG Pantoprazole Sodium (PROTonix 40MG TAB) 40 mg DAILY PO 09/24/24 09:00 10/24/24 08:59 09/24/24 09:14 40 MG Sodium Chloride 1,000 ml @ 75 mls/hr [id number] IV 09/23/24 14:30 10/23/24 14:29 Vitamin B Complex (Vitamin B-12) 1,000 mcg DAILY PO 09/24/24 09:00 10/24/24 08:59 09/24/24 09:15 1,000 MCG DIAGNOSTICS / RADIOLOGY: [ ] ASSESSMENT: Severe iron Deficiency anemia, POA Acute on chronic anemia likely secondary to chronic GI bleeding, POA Rectal thickening with concerns for possible anorectal mass versus hemorrhoids, POA Hiatal hernia, POA Prior history of hemorrhoids and rectal prolapse, POA Lutheran declining blood product transfusion, POA Hypokalemia, POA PLAN: Admit: medical-surgical floor under telemetry monitoring consultants: GI , Pulmologist surgeon will monitor H/H trends while on IV Venofer : declined any blood product transfusion Jehovah Witness, oral supplements: daily folic acid and vitamin B12 supplementation, Procedure: EGD today will follow GI recommendations continue PPI's Protonix Large sliding and paraesophageal hiatal hernia. will follow surgeon Dr. Brooks recommendations. Electrolytes protocol to keep potassium above 4.0 and magnesium above t2.0 supportive measures: SCDs for DVT prophylaxis cbc,cmp in am Fall precautions coli in reach for assistance All questions addressed Further orders as per response to treatment ATTESTATION BY PHYSICIAN I have seen and examined the patient. I reviewed the documentation, medical decision making, and treatment plan as noted by the mid-level provider above. I agree with the findings and plan of care. Margo Cadena MD, ELIZABETH NP Sep 24, 2024 10:50
--- NOTE | 2024-09-24 15:19 | NUR ---
DCP: INITIAL ASSESSMENT Patient lives alone. He has no home services or DME. Patient is able to complete ADLs independently and drives. PCP is Dr. Pollo Pearce. [facility] is [facility] in [place]. Patient voiced no safety concerns regarding returning home and states she has no difficulty with housing or buying food. DCP is home. Patient has no insurance or benefits. He was provided with community resources for post hospitalization follow up. Patient was also provided with Good RX card for prescriptions and educated on [employer] $4 medication program and [employer] $5 medication program. Patient is being assisted by [facility] for financial matters. Addendum: 09/24/24 at 1521 by ANGIE PRABHAKAR Amended: Links added.
[2024-09-24] MEDS ORDERED: PoTASSium chl 10% ELIXIR 20MEQ 20 MEQ/15 ML UDCUP PO PRN (16:30)
--- NOTE | 2024-09-24 18:56 | CONS ---
GASTROENTEROLOGY CONSULTATION REFERRING PHYSICIAN: Sam Nowak MD REASON FOR CONSULTATION: Perianal pain, anemia, abnormal abdominal imaging with thickened rectum in patient with anemia, chronic heartburn. HISTORY OF PRESENT ILLNESS: The patient is a 59-year-old male with history of rectal prolapse, who was admitted earlier with perianal pain, anemia, and who also has abnormal abdominal imaging with CT scan showing irregular rectal wall thickening for which GI evaluation and management are sought. The patient also reports chronic heartburn. According to the patient, he has been having also rectal pain, which has been ongoing for one week and it has been burning, sharp at times. He also reports episodes of hematochezia. The pain gets worse when he lays on his left side. The patient denies any abdominal pain, any nausea, vomiting, melena, or significant weight loss. He denies any anorectal trauma. He has had no fever or chills. He has no family history of colon cancer, stomach cancer or IBD. ALLERGIES: No known drug allergies. PAST MEDICAL AND SURGICAL HISTORY: See above also, no history of DM, HTN, CAD, GA, CVA, seizure disorder, PUD, but admits to a history of asthma. He has undergone repair of left wrist fracture in the past. SOCIAL HISTORY: The patient denies alcohol use, tobacco use or illicit drug use. He is a Jew. MEDICATIONS: Folic acid, vitamin B complex, morphine sulfate, bisacodyl, potassium chloride, lactulose, iron sucrose, morphine sulfate, ondansetron, acetaminophen, lidocaine viscous. REVIEW OF SYSTEMS: CONSTITUTIONAL: The patient reports rectal pain, but no fever, chills, nausea, or vomiting. He has hematochezia though. DERMATOLOGY: Denies any rash, bruising, excessive dry skin. OPHTHALMOLOGY: No recent vision change, eye pain, preoperative swelling, redness or drainage. ENT: No ear pain, dizziness, hearing loss, nasal congestion, rhinorrhea, sore throat or voice change. RESPIRATORY: Denies wheeze, rhinorrhea, epistaxis, chest congestion, or cough. CARDIOVASCULAR: No chest pain, palpitations, or leg swelling. GENITOURINARY: No dysuria, hematuria, urgency or frequency. GASTROINTESTINAL: Has been having perianal pain and hematochezia, but no constipation or diarrhea. He denies abdominal pain, nausea, vomiting. MUSCULOSKELETAL: No joint pain, joint swelling or backache. NEUROLOGY: No tingling, numbness, vision changes, hearing loss. PSYCHIATRY: No history of depression or anxiety, suicidal plans or ideation. ENDOCRINOLOGY: No history of diabetes, thyroid disease, or hyperlipidemia. HEMATOLOGY AND LYMPHATICS: Has hematochezia on and off, but denies any easy bruising, swelling, tender or palpable lymph nodes. PHYSICAL EXAMINATION: GENERAL: The patient is a 59-year-old male who appears stated age, seen resting in bed in no acute respiratory distress. VITAL SIGNS: Blood pressure 130/70, heart rate 84, respirations 20, temperature 98.4 degrees Fahrenheit. SKIN: Warm and dry. No active dermatosis. HEENT: The patient is normocephalic, atraumatic. Pupils reactive, sclerae nonicteric. Oral mucosa was moist. No obvious lesion. No blood noted. Nasal mucosa showed no epistaxis, septal deviation, or perforation. NECK: No mass. No jugular venous distention. No lymphadenopathy or thyromegaly. LUNGS: Clear to auscultation bilaterally. HEART: S1, S2. No obvious murmurs, rubs, or gallops ausculated. ABDOMEN: Symmetric, soft with active bowel sounds. No hepatomegaly or masses. Mild tenderness noted in the epigastrium. No rebound. No guarding. EXTREMITIES: No cyanosis, clubbing or edema. RECTAL: Prolapsed rectal mucosa noted in the rectum and this appeared hemorrhagic. The surrounding anal area was edematous, swollen. No digital rectal examination was done. NEUROLOGICAL: The patient is now awake, alert. Light touch pain and temperature grossly intact bilaterally. Strength within normal limits. LABORATORY DATA: WBC 4.2, hemoglobin 6.1, hematocrit 23.8, MCV of 61.3, platelet count of 445. PT 11.7, INR 1.12, APTT 26.9. Serum chemistry revealed sodium of 143, potassium 3.3, chloride 107, CO2 of 30, BUN of 11, creatinine 0.8, GFR 101, random glucose 103, total calcium 8.5, total bilirubin 0.5, direct 0.1, AST 14, ALT 23, alkaline phosphatase 81, total protein 7.3, albumin 3.3, TSH at 0.89. DIAGNOSTIC DATA: CT scan of abdomen and pelvis done earlier today was without contrast and this revealed gallbladder within normal limits. Liver was unremarkable. Lung bases were clear. Spleen was unremarkable. Pancreas unremarkable. Adrenal also unremarkable. Kidneys appear within normal limits. No hydronephrosis, hydroureter, urinary calculi seen. Large sliding and paraesophageal hiatal hernia noted. Regular thickening in the rectum noted. Tiny peripheral calcific foci noted. Colonic diverticulosis without diverticulitis noted. Small bowel unremarkable. No evidence of bowel obstruction. No acute appendicitis. Peritoneum was unremarkable. No lymphadenopathy noted in the lymph nodes. IMPRESSION: * Perianal and rectal pain most likely from rectal prolapse and edema and swelling of the perianal region. * Hematochezia likely from trauma resulting from wiping the perianal area. There are also contributions from rectal prolapse, but cannot exclude any hemorrhoid involvement. * Acute anemia secondary to blood loss from the GI tract as noted above. * Chronic heartburn puts him at risk for Radford's esophagus. PLAN: * Abnormal abdominal imaging with thickening of rectum, likely from pathology as listed above and infiltrative disease, colon polyp, colorectal CA cannot be excluded. * Keep well hydrated. * Give clear liquid diet now. * Give suppositories now also. * Recommend EGD for further evaluation and management. * Recommend colorectal surgery evaluation also. * We will hold on any colonoscopy for now. * Continue with IV iron therapy. * Add vitamin C 500 mg p.o. b.i.d. also. Continue folic acid therapy. Check vitamin B12 level also and supplement if trending low. Do not wait for a vitamin B12 level to fall to low levels. The above findings on physical exam, their significance and significance of lab and imaging studies have been discussed with the patient and also the attending on record Dr. Bam Nowak. The management plan as above has been agreed on with the patient and he verbalized understanding of this. All questions have been answered. Dear Dr. Nwoak, thank you for allowing me to participate in the care of this patient. TID: [id number] RECEIPT: [id number] cc: Sam Nowak MD
--- NOTE | 2024-09-24 23:14 | CONS ---
GENERAL SURGERY CONSULTATION NOTE Date/Time Patient Seen: September 24, 2024 10:00 p.m. Requesting Physician: [ ] Reason for Consultation: Rectal prolapse History of Present Illness: This is a 59-year-old male with a 10 year history of a rectal prolapse that he has been manually reducing. He states that he could not reduce it yesterday after having a bloody bowel movement. And he has complaints of rectal pain as well. He is a [employer] and upon presentation to the emergency department he was found to be severely anemic with a hemoglobin of 6. GI was consulted and they did an EGD earlier today and they found gastritis in the small hiatal hernia. They wanted to defer on the colonoscopy. Patient denies any history of anal trauma, anal intercourse or placing foreign bodies in his anus. PAST MEDICAL HISTORY: History of anemia, history of hemorrhoids, possible history of rectal prolapse several years ago PAST SURGICAL HISTORY: Reports having had colonoscopy pre COVID, about 5-6 years ago PAST SOCIAL HISTORY: Denies active smoking, drinks socially FAMILY HISTORY: Mother had breast cancer about 40-50 years ago Current Medications Medications (Trade) Dose Ordered Sig/Criselda Route Start Time Stop Time Status Last Admin Dose Admin Ascorbic Acid (Vitamin C 500mg Tab) 250 mg BID PO 09/23/24 22:30 10/23/24 22:29 09/24/24 20:51 250 MG Folic Acid (FOLic ACID 1 MG TABLET) 1 mg DAILY PO 09/24/24 09:00 10/24/24 08:59 09/24/24 09:14 1 MG Hydrocortisone Acetate (anuSOL-HC 25MG SUPP) 1 supp DAILY SC 09/23/24 22:30 10/23/24 22:29 Iron Sucrose 300 mg/Sodium Chloride 250 ml @ 83 mls/hr Q24H IV 09/23/24 18:00 09/26/24 22:00 09/24/24 17:33 83 MLS/HR Lidocaine HCl (Lidocaine HCl 1% 20ml Vial) 20 ml ONCE STAT INJ 09/23/24 08:46 09/23/24 08:50 DC 09/23/24 09:03 20 ML Pantoprazole Sodium (PROTonix 40MG INJ) 40 mg Q12H IVP 09/23/24 14:30 09/24/24 08:24 DC 09/23/24 19:43 40 MG Pantoprazole Sodium (PROTonix 40MG TAB) 40 mg DAILY PO 09/24/24 09:00 10/24/24 08:59 09/24/24 09:14 40 MG Sodium Chloride 1,000 ml @ 75 mls/hr [id number] IV 09/23/24 14:30 10/23/24 14:29 09/24/24 17:32 75 MLS/HR Vitamin B Complex (Vitamin B-12) 1,000 mcg DAILY PO 09/24/24 09:00 10/24/24 08:59 09/24/24 09:15 1,000 MCG Review of Systems: CONST: [No fever, fatigue, or weight changes.] EYES: [No recent vision problems.] ENT: [No congestion, ear pain, or sore throat.] C/V: [No chest pain, palpitations, or edema.] RESP: [No cough, congestion, wheezing or shortness of breath.] GI: [No abdominal pain, nausea, vomiting, constipation, or diarrhea.] : [Rectal bleeding SKIN: [No rash.] NEURO: [No headache, focal numbness or weakness, dizziness, or seizures.] PSYCH: [No depression or anxiety.] HEME: [No abnormal bruising or bleeding.] LYMPH: [No swollen glands.] Physical Examination: GENERAL: [No acute distress.] HEAD: [Normal with no signs of head trauma.] EYES: [PERRLA, EOMI, conjunctiva and sclera normal.] ENT: [Hearing grossly intact, normal oropharynx.] NECK: [Supple without JVD. There is no tenderness, lymphadenopathy, or masses. No thyromegaly. Normal carotid upstrokes without bruits.] LUNGS: [Clear breath sounds bilaterally. There are right basilar rales one third of the way up the chest. No wheezes, or rhonchi.] HEART: [Normal rate and rhythm. Normal S1 and S2 without mumurs, gallop or rub.] VASC: [Peripheral pulses +2 bilaterally.] ABD: [Bowel sounds normal, soft, nontender, no masses, no organomegaly. No audible bruits.] : Rectum colon evidence of a rectal prolapse. Mucosa is not dusky or isc hemic. He does have some hemorrhoids as well. LYMPH: [No lymphadenopathy noted.] EXT: [No clubbing, cyanosis or edema.] SKIN: [No rashes or lesions noted.] NEURO: [Awake, alert, and oriented x3. No focal sensory or strength deficits noted.] Vital Signs (last 8hr) Date Time Temp Pulse Resp B/P (MAP) Pulse Ox O2 Delivery O2 Flow Rate FiO2 09/24/24 20:00 98.4 68 16 122/69 99 Room Air 09/24/24 20:00 99 Room Air* 0 21 09/24/24 16:00 98.4 67 18 124/70 98 Room Air Laboratory: [ ] Hematology Labs: Test 09/24/24 04:10 09/23/24 15:10 09/23/24 10:46 Range/Units Hemoglobin 6.3 *L 14.0-18.0 g/dL Hematocrit 24.9 L 42-54 % Erythrocyte Sedimentation Rate 7 0-20 MM/HR White Blood Count 4.2 L 4.8-10.8 K/uL Red Blood Count 3.88 L 4.50-6.20 MIL/uL Mean Corpuscular Volume 61.3 L 79-99 fL Mean Corpuscular Hemoglobin 15.7 L 27.0-33.0 pg Mean Corpuscular Hemoglobin Concent 25.6 L 32.0-36.0 g/dL Red Cell Distribution Width 23.4 H 11.0-15.5 % Platelet Count 445 H 130-400 K/uL Mean Platelet Volume 9.7 7.5-10.5 fL Immature Granulocyte % (Auto) 3.3 H 0-1 % Neutrophils (%) (Auto) 55.1 40.0-77.0 % Lymphocytes (%) (Auto) 30.1 21.0-51.0 % Monocytes (%) (Auto) 10.0 3.0-13.0 % Eosinophils (%) (Auto) 1.0 0.0-8.0 % Basophils (%) (Auto) 0.5 0.0-5.0 % Neutrophils # (Auto) 2.3 1.8-7.7 K/uL Lymphocytes # (Auto) 1.3 1.0-4.8 K/uL Monocytes # (Auto) 0.4 0.1-1.0 K/uL Eosinophils # (Auto) 0.04 0.00-0.70 K/uL Basophils # (Auto) 0.02 0.00-0.20 K/uL Absolute Immature Granulocyte (auto 0.14 0-1 K/uL Segmented Neutrophils % 50 40-70 % Lymphocytes % (Manual) 25 22-44 % Monocytes % (Manual) 13 H 2-9 % Eosinophils % (Manual) 1 1-6 % Metamyelocytes % 1 H 0-0 % Myelocytes % 2 H 0-0 % Promyelocytes % 2 H 0-0 Nucleated Red Blood Cells 3.0 H 0.0-0.19 % Differential Comment Reactive Lymphocytes 6 H 0-0 % White Cell Morphology Comment See comments Platelet Morphology Comment ADEQUATE Red Blood Cell Morphology See comments Chemistry Labs: Test 09/24/24 04:10 09/23/24 15:10 09/23/24 09:24 Range/Units Folic Acid (LAB) > 20.00 H 2-20 ng/mL Iron Level 19 L 65-175 mcg/dL Total Iron Binding Capacity 428 250-450 mcg/dL Percent Iron Saturation 4.4 L 30-44 % Ferritin 9 L 30-400 ng/mL Lactate Dehydrogenase 349 H 81-234 U/L C-Reactive Protein, Quantitative 16.10 H 0.5-3.0 mg/L Procalcitonin 0.32 0.05-0.5 ng/mL Sodium Level 143 136-145 mmol/L Potassium Level 3.3 L 3.5-5.1 mmol/L Chloride Level 107 101-111 mmol/L Carbon Dioxide Level 30 21-32 mmol/L Blood Urea Nitrogen 11 7-18 mg/dL Creatinine 0.8 0.5-1.3 mg/dL Glomerular Filtration Rate Calc 101 >90 mL/min Random Glucose 103 70-105 mg/dL Total Calcium 8.5 8.5-10.1 mg/dL Magnesium Level 2.20 1.80-2.40 mg/dL Total Bilirubin 0.5 0.2-1.0 mg/dL Direct Bilirubin 0.1 0.0-0.3 mg/dL Aspartate Amino Transf (AST/SGOT) 14 10-37 U/L Alanine Aminotransferase (ALT/SGPT) 23 12-78 U/L Alkaline Phosphatase 81 50-136 U/L Total Protein 7.3 6.0-8.3 g/dL Albumin 3.8 3.5-5.0 g/dL Thyroid Stimulating Hormone (TSH) 0.89 0.36-3.74 uIU/mL Coagulation Labs: Test 09/23/24 15:10 Range/Units Prothrombin Time 11.7 H 9.6-11.6 SEC Prothromb Time International Ratio 1.12 0.85-1.15 Activated Partial Thromboplast Time 26.9 26.3-35.5 SEC Diagnostics / Radiology: CT scan of the abdomen and pelvis showed 1. Irregular rectal wall thickening. Suggested histopathological correlation. 2. Large sliding and paraesophageal hiatal hernia. 3. Colonic diverticulosis without diverticulitis. Assessment: 59-year-old male with longstanding history of rectal prolapse. Plan: Unfortunately I do not manage or surgically treat rectal prolapse. Neither do my partners. we can try sprinkling table sugar onto the rectal mucosa but I do not even think we have table sugar in the hospital. If the primary team is able to obtain table sugar then I can try to sprinkle some on and see if I could manually reduce it a few minutes later but I a.m. doubtful that this will work. Would strongly recommend evaluation by a colorectal surgeon. I do not know if any would come here. There may be a colorectal surgeon at [facility] who could address this. Because he is uninsured, he may have trouble following up with a colorectal surgeon as an outpatient. Would recommend case management to help him obtained either Medicaid or insurance via the exchange so that he can have access to a colorectal surgeon. He did tell me that he has seen a colorectal surgeon in [place] but is unsure of fluid was There is nothing to do for the small hiatal hernia that was found on endoscopy as this is not an acute problem. CAROL ANN LUNSFORD MD Sep 24, 2024 23:14
[2024-09-25] VITALS (8 sets, daily range): BP systolic 105–145; BP diastolic 69–82; PULSE 62–83; RESP 16–20; TEMP 97.6–98.9; O2SAT 98–99
[2024-09-25 05:10] LABS: IMMATURE GRANULOCYTE ABSOLUTE 0.28 K/uL (0-1); NUCLEATED RED BLOOD CELLS 1.2 % (0.0-0.19); PLATELET COUNT (AUTO) 416 K/uL (130-400); RED BLOOD CELL COUNT(AUTO) 4.02 MIL/uL (4.50-6.20); RED CELL DISTRIBUTION WIDTH 24.9 % (11.0-15.5); WHITE BLOOD COUNT (AUTO) 6.0 K/uL (4.8-10.8)
[2024-09-25 05:30] LABS: ASPARTATE AMINOTRANSFERASE 15.0 U/L (10-37); CREATININE 1.0 mg/dL (0.5-1.3); GLOMERULAR FILTR. RATE CALC 86.0 mL/min (>90); GLUCOSE,RANDOM 92.0 mg/dL (70-105); SODIUM SERUM 142.0 mmol/L (136-145); TOTAL PROTEIN, SERUM 6.2 g/dL (6.0-8.3); UREA NITROGEN, BLOOD 9.0 mg/dL (7-18)
[2024-09-25] MEDS: PoTASSium chloRIDE 20MEQ ER 20 MEQ ERTAB PO PRN (09:21)
--- NOTE | 2024-09-25 11:15 | PN ---
[facility] PROGRESS NOTE Date of Service: Sep 25, 2024 Time of Service: 11:00 SUBJECTIVE: [ ] This is a 59-year-old male who is a Latter-day with history of anemia, prior history of hemorrhoids, possible prior history of rectal prolapse, who presented to the ER for further evaluation of rectal pain, tenesmus with having a bowel movement. Pain started about 3-4 days ago and is worsened with having a bowel movement. Patient also noticed blood with wiping. Patient states that he saw his PCP few days ago and was referred to a specialist for further evaluation. Reports having previous history of hemorrhoids as well with intermittent mild bleeding. Patient reports that maybe about 10 years ago, he had possible history of rectal prolapse which was reduced by a specialist. He has had colonoscopy 5-6 years ago and does not remember the results. Denies any significant fevers or chills otherwise. Denies previous history of GI issues. Patient states that he is using ibuprofen about four times a day for pain con trol for about a week. He has also been taking iron. He has noticed that few days ago, stool was dark in color. Denies any hematemesis. 09/24/2024. Patient went for EGD this morning. Patient continues with IV Venofer given to patient's orthodox Jehovah Witness decline blood transfusion latest hemoglobin 6.3. As per Dr. Quintanilla colonoscopy we will be placed on hold for now given to patient's hemoglobin remains below seven. Patient denies abdominal pain patient reports having dark stools post EGD. We will monitor patient closely denied shortness a breath advised patient to use coli for assistance to bathroom voiced understanding. 09/26/23 patient was seen earlier. Denies any rectal bleeding but continues with rectal pain when he has a bowel movement. Patient reports he has seen a colorectal surgeon in the past from [facility] he will wait for his family members to provide information. Denies fever chills nausea or vomiting. Continue with IV iron latest hemoglobin 6.4 REVIEW OF SYSTEMS CONSTITUTIONAL: Denies fevers, chills, or night sweats. No unintentional weight loss reported. NEUROLOGICAL: Denies headache, amaurosis fugax, motor weakness, sensory deficit, vertigo/spinning sensation, gait abnormalities, or tremors. ENT: No hearing loss, otalgia, otorrhea, rhinitis, rhinorrhea, hoarseness, or sore throat. CARDIOVASCULAR: Denies any exertional angina, dyspnea on exertion, orthopnea, paroxysmal nocturnal dyspnea, palpitations, life-threatening arrhythmias, claudication. PULMONARY: Denies any shortness of breath, cough, phlegm/sputum, hemoptysis, pleuritic chest pain. SLEEP: Denies morning headaches, daytime somnolence or napping. Denies difficulty falling asleep, staying asleep, waking from sleep. Denies knowledge of snoring. GASTROINTESTINAL: rectal pain, tenesmus, hx of hemorrhoids, hematochezia when he wipes GENITOURINARY: Denies frequency, urgency, nocturia, hematuria or incontinence (Storage/Irritative symptoms.) Low urinary stream, straining to void, urinary intermittency or hesitancy, splitting of the voiding stream, terminal dribbling. ENDOCRINOLOGIC: Denies polyuria, polydipsia, polyphagia or heat/cold intolera nces. HEMATOLOGIC: Denies thrombophilia/previous clots, or coagulopathy/bleeding disorders. ONCOLOGIC: Denies personal history of malignancy. DERMATOLOGIC: Denies rashes or pruritus. PSYCHIATRIC: Denies any suicidal or homicidal ideation. Denies hallucinations. PHYSICAL EXAM GENERAL APPEARANCE: The patient is awake, alert, and oriented, in no acute cardiopulmonary distress. NEUROLOGICAL: Cranial nerves II-XII grossly intact. Motor is 5/5 in bilateral upper and lower extremities proximal to distal. No sensory deficits. HEENT: Face is symmetric. Pupils are equal and reactive. Extraocular movements are intact. NECK: Supple. No JVD. No thyromegaly. No submental, submandibular, pre- /postauricular, occipital or supraclavicular lymphadenopathy. CHEST: Normal chest expansion. No Telemetry. LUNGS: Absence of any rales, rhonchi or any wheezing. CARDIOVASCULAR: Regular. S1 and S2 normal. No appreciable rubs, murmurs or gallops. ABDOMEN: Soft, nontender, and nondistended. There is no rebound, voluntary guarding, or rigidity. : couldn't do a through rectal exam due to pain, there is swelling around to anorectal region with possible hemorrhoids or mass EXTREMITIES: Non-edematous and not cyanotic. No clubbing. Good capillary refill. SKIN: No skin breakdown. Vital Signs (last 8hr) Date Time Temp Pulse Resp B/P (MAP) Pulse Ox O2 Delivery O2 Flow Rate FiO2 09/25/24 08:25 98.2 73 16 145/82 99 Room Air 09/25/24 08:00 99 Room Air* 0 21 09/25/24 03:25 98.2 83 20 137/71 98 Room Air LABS: Laboratory: Test 09/25/24 04:26 09/24/24 05:50 09/24/24 04:10 09/23/24 15:10 Range/Units White Blood Count 6.0 4.8-10.8 K/uL Red Blood Count 4.02 L 4.50-6.20 MIL/uL Hemoglobin 6.4 *L 14.0-18.0 g/dL Hematocrit 25.5 L 42-54 % Mean Corpuscular Volume 63.4 L 79-99 fL Mean Corpuscular Hemoglobin 15.9 L 27.0-33.0 pg Mean Corpuscular Hemoglobin Concent 25.1 L 32.0-36.0 g/dL Red Cell Distribution Width 24.9 H 11.0-15.5 % Platelet Count 416 H 130-400 K/uL Mean Platelet Volume 10.0 7.5-10.5 fL Immature Granulocyte % (Auto) 4.7 H 0-1 % Neutrophils (%) (Auto) 61.1 40.0-77.0 % Lymphocytes (%) (Auto) 23.6 21.0-51.0 % Monocytes (%) (Auto) 9.1 3.0-13.0 % Eosinophils (%) (Auto) 1.0 0.0-8.0 % Basophils (%) (Auto) 0.5 0.0-5.0 % Neutrophils # (Auto) 3.7 1.8-7.7 K/uL Lymphocytes # (Auto) 1.4 1.0-4.8 K/uL Monocytes # (Auto) 0.6 0.1-1.0 K/uL Eosinophils # (Auto) 0.06 0.00-0.70 K/uL Basophils # (Auto) 0.03 0.00-0.20 K/uL Absolute Immature Granulocyte (auto 0.28 0-1 K/uL Nucleated Red Blood Cells 1.2 H 0.0-0.19 % Sodium Level 142 136-145 mmol/L Potassium Level 3.4 L 3.5-5.1 mmol/L Chloride Level 107 101-111 mmol/L Carbon Dioxide Level 29 21-32 mmol/L Blood Urea Nitrogen 9 7-18 mg/dL Creatinine 1.0 0.5-1.3 mg/dL Glomerular Filtration Rate Calc 86 >90 mL/min Random Glucose 92 70-105 mg/dL Total Calcium 8.7 8.5-10.1 mg/dL Magnesium Level 2.20 1.80-2.40 mg/dL Total Bilirubin 0.5 0.2-1.0 mg/dL Aspartate Amino Transf (AST/SGOT) 15 10-37 U/L Alanine Aminotransferase (ALT/SGPT) 26 12-78 U/L Alkaline Phosphatase 64 50-136 U/L Total Protein 6.2 6.0-8.3 g/dL Albumin 3.1 L 3.5-5.0 g/dL Stool Occult Blood NEGATIVE NEGATIVE Folic Acid (LAB) > 20.00 H 2-20 ng/mL Erythrocyte Sedimentation Rate 7 0-20 MM/HR Prothrombin Time 11.7 H 9.6-11.6 SEC Prothromb Time International Ratio 1.12 0.85-1.15 Activated Partial Thromboplast Time 26.9 26.3-35.5 SEC Iron Level 19 L 65-175 mcg/dL Total Iron Binding Capacity 428 250-450 mcg/dL Percent Iron Saturation 4.4 L 30-44 % Ferritin 9 L 30-400 ng/mL Lactate Dehydrogenase 349 H 81-234 U/L C-Reactive Protein, Quantitative 16.10 H 0.5-3.0 mg/L Procalcitonin 0.32 0.05-0.5 ng/mL Test 09/23/24 11:17 Range/Units Urine Color LIGHT-BROWN YELLOW Urine Appearance CLEAR CLEAR Urine pH 5.5 5.0-8.0 Urine Specific Sebastian 1.011 1.001-1.031 Urine Protein NEGATIVE NEGATIVE mg/dL Urine Glucose (UA) NEGATIVE NEGATIVE mg/dL Urine Ketones NEGATIVE NEGATIVE mg/dL Urine Occult Blood NEGATIVE NEGATIVE Urine Nitrate NEGATIVE NEGATIVE Urine Bilirubin NEGATIVE NEGATIVE mg/dL Urine Urobilinogen 0.2 0.2-1.0 mg/dL Urine Leukocyte Esterase NEGATIVE NEGATIVE Chaparrita/uL Current Medications Medications (Trade) Dose Ordered Sig/Criselda Route PRN Reason Start Time Stop Time Status Last Admin Dose Admin Acetaminophen (TYLenol 325MG TAB) 650 mg Q6H PRN PO MILD PAIN (1-3) 09/23/24 15:00 10/23/24 14:59 09/24/24 20:56 650 MG Ascorbic Acid (Vitamin C 500mg Tab) 250 mg BID PO 09/23/24 22:30 10/23/24 22:29 09/25/24 09:21 250 MG Folic Acid (FOLic ACID 1 MG TABLET) 1 mg DAILY PO 09/24/24 09:00 10/24/24 08:59 09/25/24 09:21 1 MG Hydrocortisone Acetate (anuSOL-HC 25MG SUPP) 1 supp DAILY RI 09/23/24 22:30 10/23/24 22:29 Iron Sucrose 300 mg/Sodium Chloride 250 ml @ 83 mls/hr Q24H IV 09/23/24 18:00 09/26/24 22:00 09/24/24 17:33 83 MLS/HR Lidocaine HCl (Lidocaine HCl 1% 20ml Vial) 20 ml ONCE STAT INJ 09/23/24 08:46 09/23/24 08:50 DC 09/23/24 09:03 20 ML Morphine Sulfate (morPHINE 2MG SYG) 2 mg Q6H PRN IVP SEVERE PAIN (7-10) 09/23/24 15:00 09/30/24 14:59 09/25/24 09:21 2 MG Ondansetron HCl (zoFRAN 4MG INJ) 4 mg Q6H PRN IVP NAUSEA/VOMITING 09/23/24 15:00 10/23/24 14:59 Pantoprazole Sodium (PROTonix 40MG INJ) 40 mg Q12H IVP 09/23/24 14:30 09/24/24 08:24 DC 09/23/24 19:43 40 MG Pantoprazole Sodium (PROTonix 40MG TAB) 40 mg DAILY PO 09/24/24 09:00 10/24/24 08:59 09/25/24 09:21 40 MG Potassium Chloride 100 ml @ 100 mls/hr AD PRN IV POTASSIUM PROTOCOL 09/24/24 16:30 10/24/24 16:29 Potassium Chloride (K-Dur/Klor-Con 20meq) 20 meq AD PRN PO POTASSIUM PROTOCOL 09/24/24 16:30 10/24/24 16:29 09/25/24 09:21 20 MEQ Potassium Chloride (KCl 10% Elixir 20meq/15ml) 20 meq AD PRN PO POTASSIUM PROTOCOL 09/24/24 16:30 10/24/24 16:29 Sodium Chloride 1,000 ml @ 75 mls/hr [id number] IV 09/23/24 14:30 10/23/24 14:29 09/25/24 06:30 75 MLS/HR Vitamin B Complex (Vitamin B-12) 1,000 mcg DAILY PO 09/24/24 09:00 10/24/24 08:59 09/25/24 09:21 1,000 MCG DIAGNOSTICS / RADIOLOGY: [ ] ASSESSMENT: Severe iron Deficiency anemia, POA Acute on chronic anemia likely secondary to chronic GI bleeding, POA s/p EGD with gastritis and small H Rectal thickening with concerns for possible anorectal mass versus hemorrhoids, POA Hiatal hernia, POA Prior history of hemorrhoids and rectal prolapse, POA Latter-day declining blood product transfusion, POA Hypokalemia, POA PLAN: Admit: medical-surgical floor under telemetry monitoring consultants: GI , hematology surgeon will monitor H/H trends while on IV Venofer : declined any blood product transfusion Jehovah Witness, oral supplements: daily folic acid and vitamin B12 supplementation, Procedure: EGD s/p: gastritis small hernia GI recommendations continue PPI's Protonix longstanding history of rectal prolapse and small hiatal hernia : no surgical intervention per Dr Brooks. case management assistance for Medicaid or insurance via the exchange : for colorectal surgeon Electrolytes protocol to keep potassium above 4.0 and magnesium above 2.0 supportive measures: SCDs for DVT prophylaxis cbc,cmp in am Fall precautions coli in reach for assistance All questions addressed Further orders as per response to treatment ATTESTATION BY PHYSICIAN I have seen and examined the patient. I reviewed the documentation, medical decision making, and treatment plan as noted by the mid-level provider above. I agree with the findings and plan of care. Margo Cadena MD, ELIZABETH NP Sep 25, 2024 11:15
[2024-09-26] VITALS (7 sets, daily range): BP systolic 111–143; BP diastolic 67–79; PULSE 53–81; RESP 16–20; TEMP 97.6–99.1; O2SAT 98–100
--- NOTE | 2024-09-26 09:00 | NUR ---
DC PLAN FROM [employer]/LT ACCOUNT WAS REFERRED VIA LIVE REPORT, PT CONFIRMED ADDRESS AND PHONE # IN [place] CORRECT/ PT MAY BE ELIGIBLE FOR POSSIBLE PROGRAM/ PT SIGNED ATR AND APPLICATION / PT PROVIDED SELF EMPLOYED LETTER /[employer] PENDING TO OBTAIN:ID, PROOF OF ADDRESS, AND TAX RETURN 2023 / PATIENT IS NOT ELIGIBLE FOR MEDICAID PROGRAM WILL CONTINUE TO FOLLOW UP. PATIENT RECEIVED LOW INCOME CLINIC INFO ALSO INFO FROM [employer] IT GIVES LIST AND LINKS OF PLACES TO GET INSURANCE. MIGHT NEED TO WAIT TILL DECEMBER FOR OPEN ENROLLMENT. Addendum: 09/26/24 at 0903 by ANISH FOX RN CM Amended: Links added.
--- NOTE | 2024-09-26 12:04 | PN ---
[facility] PROGRESS NOTE Date of Service: Sep 26, 2024 Time of Service: 12:03 SUBJECTIVE: [ ] This is a 59-year-old male who is a Faith with history of anemia, prior history of hemorrhoids, possible prior history of rectal prolapse, who presented to the ER for further evaluation of rectal pain, tenesmus with having a bowel movement. Pain started about 3-4 days ago and is worsened with having a bowel movement. Patient also noticed blood with wiping. Patient states that he saw his PCP few days ago and was referred to a specialist for further evaluation. Reports having previous history of hemorrhoids as well with intermittent mild bleeding. Patient reports that maybe about 10 years ago, he had possible history of rectal prolapse which was reduced by a specialist. He has had colonoscopy 5-6 years ago and does not remember the results. Denies any significant fevers or chills otherwise. Denies previous history of GI issues. Patient states that he is using ibuprofen about four times a day for pain con trol for about a week. He has also been taking iron. He has noticed that few days ago, stool was dark in color. Denies any hematemesis. 09/24/2024. Patient went for EGD this morning. Patient continues with IV Venofer given to patient's denominational Jehovah Witness decline blood transfusion latest hemoglobin 6.3. As per Dr. Quintanilla colonoscopy we will be placed on hold for now given to patient's hemoglobin remains below seven. Patient denies abdominal pain patient reports having dark stools post EGD. We will monitor patient closely denied shortness a breath advised patient to use coli for assistance to bathroom voiced understanding. 09/26/23 patient was seen earlier. Denies any rectal bleeding but continues with rectal pain when he has a bowel movement. Patient reports he has seen a colorectal surgeon in the past from [facility] he will wait for his family members to provide information. Denies fever chills nausea or vomiting. Continue with IV iron latest hemoglobin 6.4 09/27/2023 patient was seen earlier patient is lying in bed continues with rectal pain when he has a bowel movement we will bring in Colorectal surgeon to evaluate patient. Denies any rectal bleed. We continue with IV Venofer we will received his last dose today. REVIEW OF SYSTEMS CONSTITUTIONAL: Denies fevers, chills, or night sweats. No unintentional weight loss reported. NEUROLOGICAL: Denies headache, amaurosis fugax, motor weakness, sensory deficit, vertigo/spinning sensation, gait abnormalities, or tremors. ENT: No hearing loss, otalgia, otorrhea, rhinitis, rhinorrhea, hoarseness, or sore throat. CARDIOVASCULAR: Denies any exertional angina, dyspnea on exertion, orthopnea, paroxysmal nocturnal dyspnea, palpitations, life-threatening arrhythmias, claudication. PULMONARY: Denies any shortness of breath, cough, phlegm/sputum, hemoptysis, pleuritic chest pain. SLEEP: Denies morning headaches, daytime somnolence or napping. Denies difficulty falling asleep, staying asleep, waking from sleep. Denies knowledge of snoring. GASTROINTESTINAL: rectal pain, tenesmus, hx of hemorrhoids, hematochezia when he wipes GENITOURINARY: Denies frequency, urgency, nocturia, hematuria or incontinence (Storage/Irritative symptoms.) Low urinary stream, straining to void, urinary intermittency or hesitancy, splitting of the voiding stream, terminal dribbling. ENDOCRINOLOGIC: Denies polyuria, polydipsia, polyphagia or heat/cold intolerances. HEMATOLOGIC: Denies thrombophilia/previous clots, or coagulopathy/bleeding disorders. ONCOLOGIC: Denies personal history of malignancy. DERMATOLOGIC: Denies rashes or pruritus. PSYCHIATRIC: Denies any suicidal or homicidal ideation. Denies hallucinations. PHYSICAL EXAM GENERAL APPEARANCE: The patient is awake, alert, and oriented, in no acute cardiopulmonary distress. NEUROLOGICAL: Cranial nerves II-XII grossly intact. Motor is 5/5 in bilateral upper and lower extremities proximal to distal. No sensory deficits. HEENT: Face is symmetric. Pupils are equal and reactive. Extraocular movements are intact. NECK: Supple. No JVD. No thyromegaly. No submental, submandibular, pre- /postauricular, occipital or supraclavicular lymphadenopathy. CHEST: Normal chest expansion. No Telemetry. LUNGS: Absence of any rales, rhonchi or any wheezing. CARDIOVASCULAR: Regular. S1 and S2 normal. No appreciable rubs, murmurs or gallops. ABDOMEN: Soft, nontender, and nondistended. There is no rebound, voluntary guarding, or rigidity. : couldn't do a through rectal exam due to pain, there is swelling around to anorectal region with possible hemorrhoids or prolapse EXTREMITIES: Non-edematous and not cyanotic. No clubbing. Good capillary refill. SKIN: No skin breakdown. Vital Signs (last 8hr) Date Time Temp Pulse Resp B/P (MAP) Pulse Ox O2 Delivery O2 Flow Rate FiO2 09/26/24 11:18 98.6 68 16 111/68 99 Room Air 09/26/24 08:00 100 Room Air* 0 21 09/26/24 07:48 99.0 76 16 139/79 100 Room Air LABS: Laboratory: Test 09/25/24 04:26 Range/Units White Blood Count 6.0 4.8-10.8 K/uL Red Blood Count 4.02 L 4.50-6.20 MIL/uL Hemoglobin 6.4 *L 14.0-18.0 g/dL Hematocrit 25.5 L 42-54 % Mean Corpuscular Volume 63.4 L 79-99 fL Mean Corpuscular Hemoglobin 15.9 L 27.0-33.0 pg Mean Corpuscular Hemoglobin Concent 25.1 L 32.0-36.0 g/dL Red Cell Distribution Width 24.9 H 11.0-15.5 % Platelet Count 416 H 130-400 K/uL Mean Platelet Volume 10.0 7.5-10.5 fL Immature Granulocyte % (Auto) 4.7 H 0-1 % Neutrophils (%) (Auto) 61.1 40.0-77.0 % Lymphocytes (%) (Auto) 23.6 21.0-51.0 % Monocytes (%) (Auto) 9.1 3.0-13.0 % Eosinophils (%) (Auto) 1.0 0.0-8.0 % Basophils (%) (Auto) 0.5 0.0-5.0 % Neutrophils # (Auto) 3.7 1.8-7.7 K/uL Lymphocytes # (Auto) 1.4 1.0-4.8 K/uL Monocytes # (Auto) 0.6 0.1-1.0 K/uL Eosinophils # (Auto) 0.06 0.00-0.70 K/uL Basophils # (Auto) 0.03 0.00-0.20 K/uL Absolute Immature Granulocyte (auto 0.28 0-1 K/uL Nucleated Red Blood Cells 1.2 H 0.0-0.19 % Sodium Level 142 136-145 mmol/L Potassium Level 3.4 L 3.5-5.1 mmol/L Chloride Level 107 101-111 mmol/L Carbon Dioxide Level 29 21-32 mmol/L Blood Urea Nitrogen 9 7-18 mg/dL Creatinine 1.0 0.5-1.3 mg/dL Glomerular Filtration Rate Calc 86 >90 mL/min Random Glucose 92 70-105 mg/dL Total Calcium 8.7 8.5-10.1 mg/dL Magnesium Level 2.20 1.80-2.40 mg/dL Total Bilirubin 0.5 0.2-1.0 mg/dL Aspartate Amino Transf (AST/SGOT) 15 10-37 U/L Alanine Aminotransferase (ALT/SGPT) 26 12-78 U/L Alkaline Phosphatase 64 50-136 U/L Total Protein 6.2 6.0-8.3 g/dL Albumin 3.1 L 3.5-5.0 g/dL Current Medications Medications (Trade) Dose Ordered Sig/Criselda Route PRN Reason Start Time Stop Time Status Last Admin Dose Admin Acetaminophen (TYLenol 325MG TAB) 650 mg Q6H PRN PO MILD PAIN (1-3) 09/23/24 15:00 10/23/24 14:59 09/24/24 20:56 650 MG Ascorbic Acid (Vitamin C 500mg Tab) 250 mg BID PO 09/23/24 22:30 10/23/24 22:29 09/26/24 09:13 250 MG Folic Acid (FOLic ACID 1 MG TABLET) 1 mg DAILY PO 09/24/24 09:00 10/24/24 08:59 09/26/24 09:13 1 MG Hydrocortisone Acetate (anuSOL-HC 25MG SUPP) 1 supp DAILY AK 09/23/24 22:30 10/23/24 22:29 Iron Sucrose 300 mg/Sodium Chloride 250 ml @ 83 mls/hr Q24H IV 09/23/24 18:00 09/26/24 22:00 09/25/24 17:32 83 MLS/HR Lidocaine HCl (Lidocaine HCl 1% 20ml Vial) 20 ml ONCE STAT INJ 09/23/24 08:46 09/23/24 08:50 DC 09/23/24 09:03 20 ML Morphine Sulfate (morPHINE 2MG SYG) 2 mg Q6H PRN IVP SEVERE PAIN (7-10) 09/23/24 15:00 09/30/24 14:59 09/25/24 17:32 2 MG Ondansetron HCl (zoFRAN 4MG INJ) 4 mg Q6H PRN IVP NAUSEA/VOMITING 09/23/24 15:00 10/23/24 14:59 Pantoprazole Sodium (PROTonix 40MG INJ) 40 mg Q12H IVP 09/23/24 14:30 09/24/24 08:24 DC 09/23/24 19:43 40 MG Pantoprazole Sodium (PROTonix 40MG TAB) 40 mg DAILY PO 09/24/24 09:00 10/24/24 08:59 09/26/24 09:13 40 MG Potassium Chloride 100 ml @ 100 mls/hr AD PRN IV POTASSIUM PROTOCOL 09/24/24 16:30 10/24/24 16:29 Potassium Chloride (K-Dur/Klor-Con 20meq) 20 meq AD PRN PO POTASSIUM PROTOCOL 09/24/24 16:30 10/24/24 16:29 09/25/24 14:50 20 MEQ Potassium Chloride (KCl 10% Elixir 20meq/15ml) 20 meq AD PRN PO POTASSIUM PROTOCOL 09/24/24 16:30 10/24/24 16:29 Sodium Chloride 1,000 ml @ 75 mls/hr [id number] IV 09/23/24 14:30 09/25/24 11:16 DC 09/25/24 06:30 75 MLS/HR Vitamin B Complex (Vitamin B-12) 1,000 mcg DAILY PO 09/24/24 09:00 10/24/24 08:59 09/26/24 09:13 1,000 MCG DIAGNOSTICS / RADIOLOGY: [ ] ASSESSMENT: Severe iron Deficiency anemia, POA Acute on chronic anemia likely secondary to chronic GI bleeding, POA Rectal thickening with concerns for possible rectal prolapse versus hemorrhoids vs mass, POA Hiatal hernia, POA Prior history of hemorrhoids and rectal prolapse, POA Faith declining blood product transfusion, POA Hypokalemia, POA PLAN: Admit: medical-surgical floor under telemetry monitoring consultants: GI , hematology surgeon and colorectal surgeon will monitor H/H trends while on IV Venofer : declined any blood product transfusion Jehovah Witness, oral supplements: daily folic acid and vitamin B12 supplementation, longstanding history of rectal prolapse and small hiatal hernia : no surgical intervention per Dr Brooks. We will wait for Dr. Menchaca on his recommendations. case management assistance for Medicaid or insurance via the exchange : for colorectal surgeon We will hold off on labs for now repeat in two days. Electrolytes protocol to keep potassium above 4.0 and magnesium above 2.0 supportive measures: SCDs for DVT prophylaxis cbc,cmp in am Fall precautions coli in reach for assistance All questions addressed Further orders as per response to treatment ATTESTATION BY PHYSICIAN I have seen and examined the patient. I reviewed the documentation, medical decision making, and treatment plan as noted by the mid-level provider above. I agree with the findings and plan of care. Margo Cadena MD, ELIZABETH NP Sep 26, 2024 12:04
--- NOTE | 2024-09-26 12:57 | CONS ---
GENERAL SURGERY CONSULTATION NOTE Date/Time Patient Seen: [September 26, 2024 ] Requesting Physician: [ Hospitalist] Reason for Consultation: [ Prolapsed hemorrhoid versus rectal prolapse] History of Present Illness: Patient with a three day history of pain in the rectal area, constipation, some bleeding per rectum. His symptoms got progressively worse thus he came into the emergency room. Patient admits to at some point in time being able to manually reduce the rectal masses however at this point in time it is just got too painful for him to reduced. Patient did come in with a drop in his hemoglobin. During his admission patient had a CT scan done. CT scan shows no mass effect intra-abdominally. I personally reviewed the CT scan. Patient's lab work did show that he was anemic. Unfortunately patient has some Latter-day and refuses blood. Patient is currently getting iron infusions. Patient indicates his constipation has been ongoing for a long time. PAST MEDICAL HISTORY: History of anemia, history of hemorrhoids, PAST SURGICAL HISTORY: Reports having had colonoscopy pre COVID, about 5-6 years ago PAST SOCIAL HISTORY: Denies active smoking, drinks socially FAMILY HISTORY: Mother had breast cancer about 40-50 years ago Current Medications Medications (Trade) Dose Ordered Sig/Criselda Route Start Time Stop Time Status Last Admin Dose Admin Ascorbic Acid (Vitamin C 500mg Tab) 250 mg BID PO 09/23/24 22:30 10/23/24 22:29 09/26/24 09:13 250 MG Folic Acid (FOLic ACID 1 MG TABLET) 1 mg DAILY PO 09/24/24 09:00 10/24/24 08:59 09/26/24 09:13 1 MG Hydrocortisone Acetate (anuSOL-HC 25MG SUPP) 1 supp DAILY MD 09/23/24 22:30 10/23/24 22:29 Iron Sucrose 300 mg/Sodium Chloride 250 ml @ 83 mls/hr Q24H IV 09/23/24 18:00 09/26/24 22:00 09/25/24 17:32 83 MLS/HR Lidocaine HCl (Lidocaine HCl 1% 20ml Vial) 20 ml ONCE STAT INJ 09/23/24 08:46 09/23/24 08:50 DC 09/23/24 09:03 20 ML Pantoprazole Sodium (PROTonix 40MG INJ) 40 mg Q12H IVP 09/23/24 14:30 09/24/24 08:24 DC 09/23/24 19:43 40 MG Pantoprazole Sodium (PROTonix 40MG TAB) 40 mg DAILY PO 09/24/24 09:00 10/24/24 08:59 09/26/24 09:13 40 MG Sodium Chloride 1,000 ml @ 75 mls/hr [id number] IV 09/23/24 14:30 09/25/24 11:16 DC 09/25/24 06:30 75 MLS/HR Vitamin B Complex (Vitamin B-12) 1,000 mcg DAILY PO 09/24/24 09:00 10/24/24 08:59 09/26/24 09:13 1,000 MCG Review of Systems: Fourteen point review of systems negative except what was mentioned in history of present illness Physical Examination: PHYSICAL EXAM EYES: Sclera white HENT: Oral nasal mucosa pink and moist NECK: Supple, . LUNGS: Unlabored CARDIOVASCULAR: Regular rate and rhythm ABDOMEN: Soft, nontender, nondistended On patient's rectal exam he appears to have thrombosed hemorrhoids in multiple quadrants that are causing significant amount of discomfort. This does not appear to be rectal prolapse as it is not a circumferential fold that usually see with Rectal prolapse. CENTRAL NERVOUS SYSTEM: Awake, alert, oriented x3 SKIN: No rashes, no swelling. LYMPHATICS: No peripheral lymphadenopathy MUSCULOSKELETAL: Motor and sensory function grossly intact EXTREMITIES: No cyanosis or clubbing Vital Signs (last 8hr) Date Time Temp Pulse Resp B/P (MAP) Pulse Ox O2 Delivery O2 Flow Rate FiO2 09/26/24 11:18 98.6 68 16 111/68 99 Room Air 09/26/24 08:00 100 Room Air* 0 21 09/26/24 07:48 99.0 76 16 139/79 100 Room Air Laboratory: [ ] Hematology Labs: Test 09/25/24 04:26 Range/Units White Blood Count 6.0 4.8-10.8 K/uL Red Blood Count 4.02 L 4.50-6.20 MIL/uL Hemoglobin 6.4 *L 14.0-18.0 g/dL Hematocrit 25.5 L 42-54 % Mean Corpuscular Volume 63.4 L 79-99 fL Mean Corpuscular Hemoglobin 15.9 L 27.0-33.0 pg Mean Corpuscular Hemoglobin Concent 25.1 L 32.0-36.0 g/dL Red Cell Distribution Width 24.9 H 11.0-15.5 % Platelet Count 416 H 130-400 K/uL Mean Platelet Volume 10.0 7.5-10.5 fL Immature Granulocyte % (Auto) 4.7 H 0-1 % Neutrophils (%) (Auto) 61.1 40.0-77.0 % Lymphocytes (%) (Auto) 23.6 21.0-51.0 % Monocytes (%) (Auto) 9.1 3.0-13.0 % Eosinophils (%) (Auto) 1.0 0.0-8.0 % Basophils (%) (Auto) 0.5 0.0-5.0 % Neutrophils # (Auto) 3.7 1.8-7.7 K/uL Lymphocytes # (Auto) 1.4 1.0-4.8 K/uL Monocytes # (Auto) 0.6 0.1-1.0 K/uL Eosinophils # (Auto) 0.06 0.00-0.70 K/uL Basophils # (Auto) 0.03 0.00-0.20 K/uL Absolute Immature Granulocyte (auto 0.28 0-1 K/uL Nucleated Red Blood Cells 1.2 H 0.0-0.19 % Chemistry Labs: Test 09/25/24 04:26 Range/Units Sodium Level 142 136-145 mmol/L Potassium Level 3.4 L 3.5-5.1 mmol/L Chloride Level 107 101-111 mmol/L Carbon Dioxide Level 29 21-32 mmol/L Blood Urea Nitrogen 9 7-18 mg/dL Creatinine 1.0 0.5-1.3 mg/dL Glomerular Filtration Rate Calc 86 >90 mL/min Random Glucose 92 70-105 mg/dL Total Calcium 8.7 8.5-10.1 mg/dL Magnesium Level 2.20 1.80-2.40 mg/dL Total Bilirubin 0.5 0.2-1.0 mg/dL Aspartate Amino Transf (AST/SGOT) 15 10-37 U/L Alanine Aminotransferase (ALT/SGPT) 26 12-78 U/L Alkaline Phosphatase 64 50-136 U/L Total Protein 6.2 6.0-8.3 g/dL Albumin 3.1 L 3.5-5.0 g/dL Diagnostics / Radiology: CT scan of the abdomen and pelvis showed 1. Irregular rectal wall thickening. Suggested histopathological correlation. 2. Large sliding and paraesophageal hiatal hernia. 3. Colonic diverticulosis without diverticulitis. Assessment: Patient with a really bad case of thrombosed hemorrhoids Plan: This is not rectal purulence. These are thrombosed hemorrhoids. The plan would be for patient right now to treated conservatively. Patient needs to wash his anal opening with as warm water easily and tolerate three a times a day as well as after every bowel movement. Recommended hemorrhoidectomy with recreation of patient's anal opening. This was discussed with the patient. Risks associated with the procedure not limited to infection, bleeding, injury to surrounding structures has been explained to patient and he indicates he understands. Patient wishes to talk it over with his then get back to me if he wants surgery. JAZLYN DEL ROSARIO MD Sep 26, 2024 12:56
--- NOTE | 2024-09-26 15:19 | CONS ---
DANIEL JOSEPH MD 09/26/24 1519: CONSULT REFERRING PHYSICIAN: DANIELE CORONA MD REASON FOR CONSULT: Anemia HISTORY HPI: This is a 59-year-old male who is a Adventist with history of anemia, prior history of hemorrhoids, prior history of rectal prolapse, who presented to the ER for further evaluation of rectal pain, tenesmus. Pain started about 3-4 days ago and is worsened with having a bowel movement. Patient also noticed blood after wiping the anal region.On presentation to the hospital, patient was noted to be afebrile with T-max of 98.8 F, heart rate of 82, blood pressure of 147/82. Labs on presentation showed WBC count of 4200, hemoglobin of 6.1, platelet count of 272305. BMP remarkable for sodium of 143, potassium 3.3, BUN of 11 , creatinine 0.8. Underwent CT abdomen pelvis without IV contrast showed irregular rectal wall thickening. Per ER physician, rectal examination showed nodular irregular swelling in the perianal area with hemorrhoids and possible rectal mass. Patient was admitted for further evaluation and management. Hematology is consulted for severe anemia. 09/26/2024: Patient is seen and evaluated at his bedside. His hemoglobin is 6.4 today. Iron panel suggestive of C were severe iron-deficiency. He has been treated with IV Venofer daily. Surgeon recommended hemorrhoidectomy this week. He is in NAD. PMH: History of anemia, history of hemorrhoids, history of recurrent rectal prolapse PSH: Reports having had colonoscopy pre COVID, about 5-6 years ago SH: Denies active smoking, drinks socially ALLERGIES: Coded Allergies: shrimp (Unverified Allergy, Unknown, 09/03/18) CURRENT MEDS: Current Medications Medications (Trade) Dose Ordered Sig/Criselda Route PRN Reason Start Time Stop Time Status Last Admin Epoetin Adam-epbx (Retacrit) 20,000 unit ONCE SQ 09/26/24 14:30 10/26/24 14:29 Vitamin B Complex (Vitamin B-12) 1,000 mcg DAILY SQ 09/27/24 09:00 10/27/24 08:59 REVIEW OF SYSTEMS CONSTITUTIONAL: No FEVER, No SWEATS, No CHILLS, No WEIGHT LOSS HEENT: No JAUNDICE, No SORE THROAT, No SINUS PRESSURE, No VISION CHANGES RESPIRATORY: No COUGH, No CHEST PAIN, No SHORTNESS OF BREATH, No HEMOPTYSIS CARDIOVASCULAR: No PALPATIONS, No DYSPNEA ON EXERTION, No SYNCOPE GASTROINTESTINAL: No NAUSEA, No VOMITING, No DIARRHEA, No DYSPHAGIA, No CONSTIPATION, No ABDOMINAL PAIN, No HEMATEMESIS; HEMATOCHEZIA; No MELENA GENITOURINARY: No DYSURIA, No HEMATURIA HEMATOLOGIC/LYMPHATIC: No EASY BRUISING, No CERVICAL ADENOPATHY, No AXILLARY ADENOPATHY, No INGUINAL ADENOPATHY MUSCULOSKELETAL: No BONE PAIN, No MASS, No NORMAL RANGE OF MOTION PHYSICAL EXAM VITALS: Vital Signs Date Time Temp Pulse Resp B/P (MAP) Pulse Ox O2 Delivery O2 Flow Rate FiO2 09/26/24 11:18 98.6 68 16 111/68 99 Room Air 09/26/24 08:00 0 21 GENERAL: ALERT, ORIENTED, APPEARS-NO ACUTE DISTRESS EYES: SCLERAE ANICTERIC, PUPILS EQUAL/REACTIVE, EXTRAOCULAR MUSCLES INTCT ENT/NECK: ORAL MUCOSA W/O LESIONS, OROPHARYNX IS CLEAR, NECK SUPPLE W/O MASSES RESPIRATORY: LUNGS CLEAR-AUSC/PERCUS CARDIOVASCULAR: REGULAR RATE, REGULAR RHYTHM GASTROINTESTINAL: ABDOMEN IS SOFT, DISTENDED, BOWEL SOUNDS PRESENT, PALPABLE MASSES (Thrombosed multiple hemorrhoids versus necrotic mass seen at anal opening, bleed on touch) HEMATOLOGY/LYMPHATIC: No CERVICAL ADENOPATHY, No SUPRACLAVICULR ADENOPATHY, No AXILLARY ADENOPATHY, No INGUINAL ADENOPATHY DIAGNOSTIC STUDIES PROCEDURE: ABD PEL WO - CT ABDOMEN/PELVIS W/O CONTRAST EXAM: CT Abdomen and Pelvis Without IV contrast CLINICAL HISTORY: SUSPICIOUS MALIGNANT PERIANAL LESION TECHNIQUE: Axial computed tomography images of the abdomen and pelvis without intravenous contrast. CONTRAST: No IV contrast. COMPARISON: None provided. FINDINGS: LUNG BASES: The lung bases appear clear. No pleural effusions are seen. LIVER: Unremarkable. GALLBLADDER AND BILE DUCTS: The gallbladder appears within normal limits. No radioopaque gallstones are seen. No biliary ductal dilatation is evident. PANCREAS: Unremarkable. SPLEEN: Unremarkable. ADRENAL GLANDS: Unremarkable. KIDNEYS, URETERS, AND BLADDER: The kidneys appear within normal limits. There is no hydronephrosis or hydroureter. No urinary calculi are seen. STOMACH AND BOWEL: Large sliding and paraesophageal hiatus hernia. Irregular thickening in the rectum. Tiny peripheral calcific foci. Colonic diverticulosis without diverticulitis. Unremarkable appearance of the small bowel. No evidence of bowel obstruction. APPENDIX: No evidence of acute appendicitis on CT examination. PERITONEUM: No free fluid. No free air. LYMPH NODES: No lymphadenopathy is evident. REPRODUCTIVE: Unremarkable as visualized. VASCULATURE: Atherosclerotic changes in the form of eccentric vessel wall calcification in the abdominal aorta and its major branches. No evidence of abdominal aortic aneurysm. BONES: Degenerative changes in the visualised spine in the form of marginal osteophytes and degenerative discs at multiple lumbar levels. Sclerotic focus at L2 vertebra. These may reflect bone islands. No aggressive appearing osseous lesion. No acute osseous pathology is evident. IMPRESSION: 1. Irregular rectal wall thickening. Suggested histopathological correlation. 2. Large sliding and paraesophageal hiatal hernia. 3. Colonic diverticulosis without diverticulitis. /[place] DICTATED BY: BRIAN MEDRANO Jr., MD DATE: 09/23/241441 ELECTRONICALLY SIGNED BY: BRIAN MEDRANO Jr., MD DATE: 09/23/24 144 IMPRESSION Severe iron Deficiency anemia, POA Acute on chronic anemia likely secondary to chronic GI bleeding, POA Rectal thickening with concerns for possible thrombosed hemorrhoids vs fungating mass, POA Hiatal hernia, POA Prior history of hemorrhoids and rectal prolapse, POA Adventist declining blood product transfusion, POA Hypokalemia, POA PLAN Severe iron Deficiency anemia, POA Acute on chronic anemia likely secondary to chronic GI bleeding, POA Prolapsed and thrombosed hemorrhoids versus mass -perianal region,poa Today hemoglobin is 6.4 Colonoscopy is deferred, EGD showed acute gastritis, reflux esophagitis with no bleeding-biopsied Patient is being treated with IV Venofer daily till surgery Continue vitamin B12 injections daily till surgery and continue folic acid tablets [place] receive 62160 units of Procrit tomorrow a.m. Possible hemorrhoidectomy surgery this week as per Dr. Cagle ATTESTATION BY PHYSICIAN I have seen and examined the patient. I reviewed the documentation, medical decision making, and treatment plan as noted by the resident provider above. I agree with the findings and plan of care. DALI WINTER MD, MD 09/27/24 5852: PLAN I attest that I was physically present to evaluate the patient and I reviewed and discussed the case with the Resident and agree with the Resident's findings and plans of care as documented above with modifications. Case discussed with resident on the date stated at the beginning of note. Patient was first seen and evaluated by me during this hospitalization. DANIEL JOSEPH MD Sep 26, 2024 15:19 DALI MA MD Sep 27, 2024 13:49
--- NOTE | 2024-09-26 17:36 | NUR ---
nurse note still awaiting Retacrit from pharmacy, called twice
[2024-09-26] MEDS: EPOETIN ALFA-EPBX (NON-ESRD) 10,000 UNIT/ML VIAL SQ SCH (18:29)
[2024-09-26] MEDS: SOD FERRIC GLUC COMPLEX/SUC 125 MG in 0.9%NACL 100ML 100 ML IV SCH (21:43)
[2024-09-27] VITALS (7 sets, daily range): BP systolic 113–150; BP diastolic 57–82; PULSE 64–81; RESP 16–20; TEMP 98–98.7; O2SAT 98
[2024-09-27] MEDS: CYANOCOBALAMIN (VITAMIN B-12) 1000 MCG/ML 1ML VIAL SQ SCH (10:20)
--- NOTE | 2024-09-27 13:00 | PN ---
[facility] PROGRESS NOTE Date of Service: Sep 27, 2024 Time of Service: 12:55 SUBJECTIVE: [ ] This is a 59-year-old male who is a Oriental orthodox with history of anemia, prior history of hemorrhoids, possible prior history of rectal prolapse, who presented to the ER for further evaluation of rectal pain, tenesmus with having a bowel movement. Pain started about 3-4 days ago and is worsened with having a bowel movement. Patient also noticed blood with wiping. Patient states that he saw his PCP few days ago and was referred to a specialist for further evaluation. Reports having previous history of hemorrhoids as well with intermittent mild bleeding. Patient reports that maybe about 10 years ago, he had possible history of rectal prolapse which was reduced by a specialist. He has had colonoscopy 5-6 years ago and does not remember the results. Denies any significant fevers or chills otherwise. Denies previous history of GI issues. Patient states that he is using ibuprofen about four times a day for pain con trol for about a week. He has also been taking iron. He has noticed that few days ago, stool was dark in color. Denies any hematemesis. 09/24/2024. Patient went for EGD this morning. Patient continues with IV Venofer given to patient's uatsdin Jehovah Witness decline blood transfusion latest hemoglobin 6.3. As per Dr. Quintanilla colonoscopy we will be placed on hold for now given to patient's hemoglobin remains below seven. Patient denies abdominal pain patient reports having dark stools post EGD. We will monitor patient closely denied shortness a breath advised patient to use coli for assistance to bathroom voiced understanding. 09/26/23 patient was seen earlier. Denies any rectal bleeding but continues with rectal pain when he has a bowel movement. Patient reports he has seen a colorectal surgeon in the past from [facility] he will wait for his family members to provide information. Denies fever chills nausea or vomiting. Continue with IV iron latest hemoglobin 6.4 09/27/2023 patient was seen earlier patient is lying in bed continues with rectal pain when he has a bowel movement we will bring in Colorectal surgeon to evaluate patient. Denies any rectal bleed. We continue with IV Venofer we will received his last dose today. 09/27/24 the patient was seen earlier patient was evaluated by colorectal surgeon I appreciate his put review his note in detail patient has thrombosed hemorrhoids his recommendations hemorrhoidectomy with recreation of patient's anal opening. Patient wants to proceed with procedure primary nurse to reach out to surgeon to schedule patient possible tomorrow. REVIEW OF SYSTEMS CONSTITUTIONAL: Denies fevers, chills, or night sweats. No unintentional weight loss reported. NEUROLOGICAL: Denies headache, amaurosis fugax, motor weakness, sensory deficit, vertigo/spinning sensation, gait abnormalities, or tremors. ENT: No hearing loss, otalgia, otorrhea, rhinitis, rhinorrhea, hoarseness, or sore throat. CARDIOVASCULAR: Denies any exertional angina, dyspnea on exertion, orthopnea, paroxysmal nocturnal dyspnea, palpitations, life-threatening arrhythmias, claudication. PULMONARY: Denies any shortness of breath, cough, phlegm/sputum, hemoptysis, pleuritic chest pain. SLEEP: Denies morning headaches, daytime somnolence or napping. Denies difficulty falling asleep, staying asleep, waking from sleep. Denies knowledge of snoring. GASTROINTESTINAL: rectal pain, tenesmus, hx of hemorrhoids, hematochezia when he wipes GENITOURINARY: Denies frequency, urgency, nocturia, hematuria or incontinence (Storage/Irritative symptoms.) Low urinary stream, straining to void, urinary intermittency or hesitancy, splitting of the voiding stream, terminal dribbling. ENDOCRINOLOGIC: Denies polyuria, polydipsia, polyphagia or heat/cold intolerances. HEMATOLOGIC: Denies thrombophilia/previous clots, or coagulopathy/bleeding disorders. ONCOLOGIC: Denies personal history of malignancy. DERMATOLOGIC: Denies rashes or pruritus. PSYCHIATRIC: Denies any suicidal or homicidal ideation. Denies hallucinations. PHYSICAL EXAM GENERAL APPEARANCE: The patient is awake, alert, and oriented, in no acute cardiopulmonary distress. NEUROLOGICAL: Cranial nerves II-XII grossly intact. Motor is 5/5 in bilateral upper and lower extremities proximal to distal. No sensory deficits. HEENT: Face is symmetric. Pupils are equal and reactive. Extraocular movements are intact. NECK: Supple. No JVD. No thyromegaly. No submental, submandibular, pre- /postauricular, occipital or supraclavicular lymphadenopathy. CHEST: Normal chest expansion. No Telemetry. LUNGS: Absence of any rales, rhonchi or any wheezing. CARDIOVASCULAR: Regular. S1 and S2 normal. No appreciable rubs, murmurs or gallops. ABDOMEN: Soft, nontender, and nondistended. There is no rebound, voluntary guarding, or rigidity. : couldn't do a through rectal exam due to pain, there is swelling around to anorectal region with possible hemorrhoids or prolapse EXTREMITIES: Non-edematous and not cyanotic. No clubbing. Good capillary refill. SKIN: No skin breakdown. Vital Signs (last 8hr) Date Time Temp Pulse Resp B/P (MAP) Pulse Ox O2 Delivery O2 Flow Rate FiO2 09/27/24 11:08 98.2 81 18 138/79 98 Room Air 09/27/24 07:52 98.8 76 16 150/82 95 Room Air LABS: Current Medications Medications (Trade) Dose Ordered Sig/Criselda Route PRN Reason Start Time Stop Time Status Last Admin Dose Admin Acetaminophen (TYLenol 325MG TAB) 650 mg Q6H PRN PO MILD PAIN (1-3) 09/23/24 15:00 10/23/24 14:59 09/24/24 20:56 650 MG Ascorbic Acid (Vitamin C 500mg Tab) 250 mg BID PO 09/23/24 22:30 10/23/24 22:29 09/27/24 10:19 250 MG Epoetin Adam-epbx (Retacrit) 20,000 unit ONCE SQ 09/26/24 14:30 09/27/24 07:20 DC 09/26/24 18:29 20,000 UNIT Ferric Sodium Gluconate Complex 125 mg/Sodium Chloride 110 ml @ 110 mls/hr Q24H IV 09/26/24 21:00 09/27/24 11:03 DC 09/26/24 21:43 110 MLS/HR Folic Acid (FOLic ACID 1 MG TABLET) 1 mg DAILY PO 09/24/24 09:00 10/24/24 08:59 09/27/24 10:18 1 MG Hydrocortisone Acetate (anuSOL-HC 25MG SUPP) 1 supp DAILY AK 09/23/24 22:30 10/23/24 22:29 Iron Sucrose 300 mg/Sodium Chloride 250 ml @ 83 mls/hr Q24H IV 09/23/24 18:00 09/26/24 21:12 DC 09/25/24 17:32 83 MLS/HR Lidocaine HCl (Lidocaine HCl 1% 20ml Vial) 20 ml ONCE STAT INJ 09/23/24 08:46 09/23/24 08:50 DC 09/23/24 09:03 20 ML Morphine Sulfate (morPHINE 2MG SYG) 2 mg Q6H PRN IVP SEVERE PAIN (7-10) 09/23/24 15:00 09/30/24 14:59 09/25/24 17:32 2 MG Ondansetron HCl (zoFRAN 4MG INJ) 4 mg Q6H PRN IVP NAUSEA/VOMITING 09/23/24 15:00 10/23/24 14:59 Pantoprazole Sodium (PROTonix 40MG INJ) 40 mg Q12H IVP 09/23/24 14:30 09/24/24 08:24 DC 09/23/24 19:43 40 MG Pantoprazole Sodium (PROTonix 40MG TAB) 40 mg DAILY PO 09/24/24 09:00 10/24/24 08:59 09/27/24 10:18 40 MG Potassium Chloride 100 ml @ 100 mls/hr AD PRN IV POTASSIUM PROTOCOL 09/24/24 16:30 10/24/24 16:29 Potassium Chloride (K-Dur/Klor-Con 20meq) 20 meq AD PRN PO POTASSIUM PROTOCOL 09/24/24 16:30 10/24/24 16:29 09/25/24 14:50 20 MEQ Potassium Chloride (KCl 10% Elixir 20meq/15ml) 20 meq AD PRN PO POTASSIUM PROTOCOL 09/24/24 16:30 10/24/24 16:29 Sodium Chloride 1,000 ml @ 75 mls/hr [id number] IV 09/23/24 14:30 09/25/24 11:16 DC 09/25/24 06:30 75 MLS/HR Vitamin B Complex (Vitamin B-12) 1,000 mcg DAILY PO 09/24/24 09:00 09/26/24 14:41 DC 09/26/24 09:13 1,000 MCG Vitamin B Complex (Vitamin B-12) 1,000 mcg DAILY SQ 09/27/24 09:00 10/27/24 08:59 09/27/24 10:20 1,000 MCG DIAGNOSTICS / RADIOLOGY: [ ] ASSESSMENT: Thrombosed hemorrhoids POA Severe iron Deficiency anemia, POA Acute on chronic anemia likely secondary to chronic GI bleeding, POA Rectal thickening with concerns for possible rectal prolapse versus hemorrhoids vs mass, POA Hiatal hernia, POA Prior history of hemorrhoids and rectal prolapse, POA Oriental orthodox declining blood product transfusion, POA Hypokalemia, POA PLAN: Admit: medical-surgical floor under telemetry monitoring consultants: GI , hematology surgeon and colorectal surgeon will monitor H/H trends while on IV Venofer : declined any blood product transfusion Jehovah Witness, oral supplements: daily folic acid and vitamin B12 supplementation,59429 units of Procrit x1 longstanding history of rectal prolapse and small hiatal hernia : no surgical intervention per Dr Brooks. DR Johnson: possible surgery tomorrow or : hemorrhoidectomy with recreation of patient's anal opening. Recommendations wash anal opening with water easily to tolerate3 times a day as well as after every bowel movement Electrolytes protocol to keep potassium above 4.0 and magnesium above 2.0 supportive measures: SCDs for DVT prophylaxis cbc,cmp in am Fall precautions coli in reach for assistance All questions addressed Further orders as per response to treatment ATTESTATION BY PHYSICIAN I have seen and examined the patient. I reviewed the documentation, medical decision making, and treatment plan as noted by the mid-level provider above. I agree with the findings and plan of care. Margo Cadena MD, ELIZABETH NP Sep 27, 2024 13:00
--- NOTE | 2024-09-27 13:48 | PN ---
This is a 59-year-old male who is a Jehovah's witness with history of anemia, prior history of hemorrhoids, prior history of rectal prolapse, who presented to the ER for further evaluation of rectal pain, tenesmus. Pain started about 3-4 days ago and is worsened with having a bowel movement. Patient also noticed blood after wiping the anal region.On presentation to the hospital, patient was noted to be afebrile with T-max of 98.8 F, heart rate of 82, blood pressure of 147/82. Labs on presentation showed WBC count of 4200, hemoglobin of 6.1, platelet count of [id number]. BMP remarkable for sodium of 143, potassium 3.3, BUN of 11 , creatinine 0.8. Underwent CT abdomen pelvis without IV contrast showed irregular rectal wall thickening. Per ER physician, rectal examination showed nodular irregular swelling in the perianal area with hemorrhoids and possible rectal mass. Patient was admitted for further evaluation and management. Hematology is consulted for severe anemia. Patient Jehovah's witness and does not accept blood products. Patient was stopped on folic acid and vitamin B12. Patient also on IV iron. This patient may be could benefit from Procrit today There is plan may be for surgery to be done tomorrow PHYSICAL EXAM VITALS: Vital Signs Date Time Temp Pulse Resp B/P (MAP) Pulse Ox O2 Delivery O2 Flow Rate FiO2 09/26/24 11:18 98.6 68 16 111/68 99 Room Air 09/26/24 08:00 0 21 GENERAL: ALERT, ORIENTED, APPEARS-NO ACUTE DISTRESS EYES: SCLERAE ANICTERIC, PUPILS EQUAL/REACTIVE, EXTRAOCULAR MUSCLES INTCT ENT/NECK: ORAL MUCOSA W/O LESIONS, OROPHARYNX IS CLEAR, NECK SUPPLE W/O MASSES RESPIRATORY: LUNGS CLEAR-AUSC/PERCUS CARDIOVASCULAR: REGULAR RATE, REGULAR RHYTHM GASTROINTESTINAL: ABDOMEN IS SOFT, DISTENDED, BOWEL SOUNDS PRESENT, PALPABLE MASSES (Thrombosed multiple hemorrhoids versus necrotic mass seen at anal open ing, bleed on touch) HEMATOLOGY/LYMPHATIC: No CERVICAL ADENOPATHY, No SUPRACLAVICULR ADENOPATHY, No AXILLARY ADENOPATHY, No INGUINAL ADENOPATHY IMPRESSION Severe iron Deficiency anemia, POA Acute on chronic anemia likely secondary to chronic GI bleeding, POA Rectal thickening with concerns for possible thrombosed hemorrhoids vs fungating mass, POA Hiatal hernia, POA Prior history of hemorrhoids and rectal prolapse, POA Jehovah's witness declining blood product transfusion, POA Hypokalemia, POA PLAN 1. This patient to be continued on IV iron while he is in the hospital 2. Patient to have CBC with pediatric tube to be done tomorrow. 3. Patient to receive Procrit 20,000 units subcu 4. Continue care as per surgery. Vitals/Labs Vital Signs Date Time Temp Pulse Resp B/P (MAP) Pulse Ox O2 Delivery O2 Flow Rate FiO2 09/27/24 11:08 98.2 81 18 138/79 98 Room Air 09/26/24 21:00 0 21 Medications Current Medications Lidocaine HCl 20 ml ONCE STAT INJ Last administered on 09/23/24at 09:03; Start 09/23/24 at 08:46; Stop 09/23/24 at 08:50; Status DC Tetanus/ Diphtheria Toxoids Adsorbed 0.5 ml ONCE ONCE IM Last administered on 09/23/24at 09:06; Start 09/23/24 at 09:00; Stop 09/23/24 at 09:01; Status DC Acetaminophen 1,000 mg ONCE ONCE PO Last administered on 09/23/24at 13:54; Start 09/23/24 at 12:30; Stop 09/23/24 at 12:31; Status DC Lidocaine HCl 10 ml ONCE ONCE MM Last administered on 09/23/24at 13:54; Start 09/23/24 at 12:30; Stop 09/23/24 at 12:31; Status DC Sodium Chloride 1,000 ml @ 75 mls/hr [id number] IV Last administered on 09/25/24at 06:30; Start 09/23/24 at 14:30; Stop 09/25/24 at 11:16; Status DC Pantoprazole Sodium 40 mg Q12H IVP Last administered on 09/23/24at 19:43; Start 09/23/24 at 14:30; Stop 09/24/24 at 08:24; Status DC Potassium Chloride 20 meq ONCE ONCE PO; Start 09/23/24 at 15:00; Stop 09/23/24 at 15:01; Status DC Acetaminophen 650 mg Q6H PRN PO Last administered on 09/24/24at 20:56; Start 09/23/24 at 15:00; Stop 10/23/24 at 14:59 Ondansetron HCl 4 mg Q6H PRN IVP; Start 09/23/24 at 15:00; Stop 10/23/24 at 14:59 Morphine Sulfate 2 mg Q6H PRN IVP Last administered on 09/25/24at 17:32; Start 09/23/24 at 15:00; Stop 09/30/24 at 14:59 Iron Sucrose 300 mg/Sodium Chloride 250 ml @ 83 mls/hr Q24H IV Last administered on 09/25/24at 17:32; Start 09/23/24 at 18:00; Stop 09/26/24 at 21:12; Status DC Vitamin B Complex 1,000 mcg DAILY PO Last administered on 09/26/24at 09:13; Start 09/24/24 at 09:00; Stop 09/26/24 at 14:41; Status DC Folic Acid 1 mg DAILY PO Last administered on 09/27/24at 10:18; Start 09/24/24 at 09:00; Stop 10/24/24 at 08:59 Magnesium Citrate 296 ml ONCE ONCE PO Last administered on 09/23/24at 19:43; Start 09/23/24 at 18:30; Stop 09/23/24 at 18:31; Status DC Lactulose 20 gm ONCE ONCE PO Last administered on 09/23/24at 19:43; Start 09/23/24 at 18:30; Stop 09/23/24 at 18:31; Status DC Bisacodyl 10 mg ONCE ONCE PO Last administered on 09/23/24at 20:59; Start 09/23/24 at 21:00; Stop 09/23/24 at 21:01; Status DC Potassium Chloride 20 meq ONCE ONCE PO Last administered on 09/23/24at 20:59; Start 09/23/24 at 20:30; Stop 09/23/24 at 20:31; Status DC Morphine Sulfate 2 mg ONCE ONCE IVP Last administered on 09/23/24at 22:14; Start 09/23/24 at 21:30; Stop 09/23/24 at 21:31; Status DC Hydrocortisone Acetate 1 supp DAILY IA; Start 09/23/24 at 22:30; Stop 10/23/24 at 22:29 Ascorbic Acid 250 mg BID PO Last administered on 09/27/24at 10:19; Start 09/23/24 at 22:30; Stop 10/23/24 at 22:29 Midazolam HCl 2 mg STK-MED ONCE .ROUTE; Start 09/24/24 at 07:08; Stop 09/24/24 at 07:13; Status DC Glycopyrrolate 1 mg STK-MED ONCE .ROUTE; Start 09/24/24 at 07:08; Stop 09/24/24 at 07:13; Status DC Ketamine HCl 50 mg STK-MED ONCE .ROUTE; Start 09/24/24 at 07:08; Stop 09/24/24 at 07:13; Status DC Propofol 200 mg STK-MED ONCE IV; Start 09/24/24 at 07:08; Stop 09/24/24 at 07:13; Status DC Phenylephrine HCl 10 mg STK-MED ONCE IV; Start 09/24/24 at 07:08; Stop 09/24/24 at 07:13; Status DC Lidocaine HCl 100 mg STK-MED ONCE .ROUTE; Start 09/24/24 at 07:09; Stop 09/24/24 at 07:13; Status DC Pantoprazole Sodium 40 mg DAILY PO Last administered on 09/27/24at 10:18; Start 09/24/24 at 09:00; Stop 10/24/24 at 08:59 Potassium Chloride 100 ml @ 100 mls/hr AD PRN IV; Start 09/24/24 at 16:30; Stop 10/24/24 at 16:29 Potassium Chloride 20 meq AD PRN PO; Start 09/24/24 at 16:30; Stop 10/24/24 at 16:29 Potassium Chloride 20 meq AD PRN PO Last administered on 09/25/24at 14:50; Start 09/24/24 at 16:30; Stop 10/24/24 at 16:29 Epoetin Adam-epbx 20,000 unit ONCE SQ Last administered on 09/26/24at 18:29; Start 09/26/24 at 14:30; Stop 09/27/24 at 07:20; Status DC Vitamin B Complex 1,000 mcg DAILY SQ Last administered on 09/27/24at 10:20; Start 09/27/24 at 09:00; Stop 10/27/24 at 08:59 Ferric Sodium Gluconate Complex 125 mg/Sodium Chloride 110 ml @ 110 mls/hr Q24H IV Last administered on 09/26/24at 21:43; Start 09/26/24 at 21:00; Stop 09/27/24 at 11:03; Status DC Epoetin Adam-epbx 10,000 unit ONCE ONCE SQ; Start 09/27/24 at 13:30; Stop 09/27/24 at 13:31; Status DC DALI MA MD Sep 27, 2024 13:48
--- NOTE | 2024-09-27 14:45 | NUR ---
Per Charge NurseAni Dr. will notify the floor when Addendum: 09/27/24 at 1447 by RHONA VÁZQUEZ RN RN Per Charge NurseAni Dr. will notify the floor with the time that he is available for the surgical procedure.
[2024-09-27] MEDS: EPOETIN ALFA-EPBX (NON-ESRD) 10,000 UNIT/ML VIAL SQ ONE (14:50)
[2024-09-28] VITALS (8 sets, daily range): BP systolic 116–140; BP diastolic 60–79; PULSE 70–85; RESP 16–20; TEMP 97.7–98.6; O2SAT 98
[2024-09-28 05:42] LABS: IMMATURE GRANULOCYTE ABSOLUTE 0.06 K/uL (0-1); NUCLEATED RED BLOOD CELLS 0.0 % (0.0-0.19); PLATELET COUNT (AUTO) 320 K/uL (130-400); RED BLOOD CELL COUNT(AUTO) 4.40 MIL/uL (4.50-6.20); RED CELL DISTRIBUTION WIDTH 29.9 % (11.0-15.5); WHITE BLOOD COUNT (AUTO) 6.5 K/uL (4.8-10.8)
--- NOTE | 2024-09-28 09:30 | PN ---
[facility] PROGRESS NOTE Date of Service: Sep 28, 2024 Time of Service: 09:29 SUBJECTIVE: [ ] This is a 59-year-old male who is a Mormon with history of anemia, prior history of hemorrhoids, possible prior history of rectal prolapse, who presented to the ER for further evaluation of rectal pain, tenesmus with having a bowel movement. Pain started about 3-4 days ago and is worsened with having a bowel movement. Patient also noticed blood with wiping. Patient states that he saw his PCP few days ago and was referred to a specialist for further evaluation. Reports having previous history of hemorrhoids as well with intermittent mild bleeding. Patient reports that maybe about 10 years ago, he had possible history of rectal prolapse which was reduced by a specialist. He has had colonoscopy 5-6 years ago and does not remember the results. Denies any significant fevers or chills otherwise. Denies previous history of GI issues. Patient states that he is using ibuprofen about four times a day for pain con trol for about a week. He has also been taking iron. He has noticed that few days ago, stool was dark in color. Denies any hematemesis. 09/24/2024. Patient went for EGD this morning. Patient continues with IV Venofer given to patient's temple Jehovah Witness decline blood transfusion latest hemoglobin 6.3. As per Dr. Quintanilla colonoscopy we will be placed on hold for now given to patient's hemoglobin remains below seven. Patient denies abdominal pain patient reports having dark stools post EGD. We will monitor patient closely denied shortness a breath advised patient to use coli for assistance to bathroom voiced understanding. 09/26/23 patient was seen earlier. Denies any rectal bleeding but continues with rectal pain when he has a bowel movement. Patient reports he has seen a colorectal surgeon in the past from [facility] he will wait for his family members to provide information. Denies fever chills nausea or vomiting. Continue with IV iron latest hemoglobin 6.4 09/27/2023 patient was seen earlier patient is lying in bed continues with rectal pain when he has a bowel movement we will bring in Colorectal surgeon to evaluate patient. Denies any rectal bleed. We continue with IV Venofer we will received his last dose today. 09/27/24 the patient was seen earlier patient was evaluated by colorectal surgeon I appreciate his put review his note in detail patient has thrombosed hemorrhoids his recommendations hemorrhoidectomy with recreation of patient's anal opening. Patient wants to proceed with procedure primary nurse to reach out to surgeon to schedule patient possible tomorrow. 09/28/24 PATIENT IS SEEN EARLIER PATIENT IS SCHEDULED FOR SURGERY THIS AFTERNOON. PATIENT WILL CONTINUE TO RECEIVE IV VENOFER DURING THE COURSE OF STAY. LATEST HEMOGLOBIN 7.6 PATIENT DENIED CHEST PAIN OR SHORTNESS FOR BREATH. REVIEW OF SYSTEMS CONSTITUTIONAL: Denies fevers, chills, or night sweats. No unintentional weight loss reported. NEUROLOGICAL: Denies headache, amaurosis fugax, motor weakness, sensory deficit, vertigo/spinning sensation, gait abnormalities, or tremors. ENT: No hearing loss, otalgia, otorrhea, rhinitis, rhinorrhea, hoarseness, or sore throat. CARDIOVASCULAR: Denies any exertional angina, dyspnea on exertion, orthopnea, paroxysmal nocturnal dyspnea, palpitations, life-threatening arrhythmias, claudication. PULMONARY: Denies any shortness of breath, cough, phlegm/sputum, hemoptysis, pleuritic chest pain. SLEEP: Denies morning headaches, daytime somnolence or napping. Denies difficulty falling asleep, staying asleep, waking from sleep. Denies knowledge of snoring. GASTROINTESTINAL: rectal pain, tenesmus, hx of hemorrhoids, hematochezia when he wipes GENITOURINARY: Denies frequency, urgency, nocturia, hematuria or incontinence (Storage/Irritative symptoms.) Low urinary stream, straining to void, urinary intermittency or hesitancy, splitting of the voiding stream, terminal dribbling. ENDOCRINOLOGIC: Denies polyuria, polydipsia, polyphagia or heat/cold intolerances. HEMATOLOGIC: Denies thrombophilia/previous clots, or coagulopathy/bleeding disorders. ONCOLOGIC: Denies personal history of malignancy. DERMATOLOGIC: Denies rashes or pruritus. PSYCHIATRIC: Denies any suicidal or homicidal ideation. Denies hallucinations. PHYSICAL EXAM GENERAL APPEARANCE: The patient is awake, alert, and oriented, in no acute cardiopulmonary distress. NEUROLOGICAL: Cranial nerves II-XII grossly intact. Motor is 5/5 in bilateral upper and lower extremities proximal to distal. No sensory deficits. HEENT: Face is symmetric. Pupils are equal and reactive. Extraocular movements are intact. NECK: Supple. No JVD. No thyromegaly. No submental, submandibular, pre- /postauricular, occipital or supraclavicular lymphadenopathy. CHEST: Normal chest expansion. No Telemetry. LUNGS: Absence of any rales, rhonchi or any wheezing. CARDIOVASCULAR: Regular. S1 and S2 normal. No appreciable rubs, murmurs or gallops. ABDOMEN: Soft, nontender, and nondistended. There is no rebound, voluntary guarding, or rigidity. : couldn't do a through rectal exam due to pain, there is swelling around to anorectal region with possible hemorrhoids or prolapse EXTREMITIES: Non-edematous and not cyanotic. No clubbing. Good capillary refill. SKIN: No skin breakdown. Vital Signs (last 8hr) Date Time Temp Pulse Resp B/P (MAP) Pulse Ox O2 Delivery O2 Flow Rate FiO2 09/28/24 07:28 98.1 76 17 116/77 96 Room Air 09/28/24 04:00 97.7 72 20 140/62 99 Room Air LABS: Laboratory: Test 09/28/24 05:09 Range/Units White Blood Count 6.5 4.8-10.8 K/uL Red Blood Count 4.40 L 4.50-6.20 MIL/uL Hemoglobin 7.6 L 14.0-18.0 g/dL Hematocrit 29.4 L 42-54 % Mean Corpuscular Volume 66.8 L 79-99 fL Mean Corpuscular Hemoglobin 17.3 L 27.0-33.0 pg Mean Corpuscular Hemoglobin Concent 25.9 L 32.0-36.0 g/dL Red Cell Distribution Width 29.9 H 11.0-15.5 % Platelet Count 320 130-400 K/uL Mean Platelet Volume 9.2 7.5-10.5 fL Immature Granulocyte % (Auto) 0.9 0-1 % Neutrophils (%) (Auto) 66.1 40.0-77.0 % Lymphocytes (%) (Auto) 23.4 21.0-51.0 % Monocytes (%) (Auto) 8.5 3.0-13.0 % Eosinophils (%) (Auto) 0.6 0.0-8.0 % Basophils (%) (Auto) 0.5 0.0-5.0 % Neutrophils # (Auto) 4.3 1.8-7.7 K/uL Lymphocytes # (Auto) 1.5 1.0-4.8 K/uL Monocytes # (Auto) 0.6 0.1-1.0 K/uL Eosinophils # (Auto) 0.04 0.00-0.70 K/uL Basophils # (Auto) 0.03 0.00-0.20 K/uL Absolute Immature Granulocyte (auto 0.06 0-1 K/uL Nucleated Red Blood Cells 0.0 0.0-0.19 % Current Medications Medications (Trade) Dose Ordered Sig/Criselda Route PRN Reason Start Time Stop Time Status Last Admin Dose Admin Acetaminophen (TYLenol 325MG TAB) 650 mg Q6H PRN PO MILD PAIN (1-3) 09/23/24 15:00 10/23/24 14:59 09/24/24 20:56 650 MG Ascorbic Acid (Vitamin C 500mg Tab) 250 mg BID PO 09/23/24 22:30 10/23/24 22:29 09/28/24 08:13 250 MG Epoetin Adam-epbx (Retacrit) 20,000 unit ONCE SQ 09/26/24 14:30 09/27/24 07:20 DC 09/26/24 18:29 20,000 UNIT Ferric Sodium Gluconate Complex 125 mg/Sodium Chloride 110 ml @ 110 mls/hr Q24H IV 09/26/24 21:00 09/27/24 11:03 DC 09/26/24 21:43 110 MLS/HR Folic Acid (FOLic ACID 1 MG TABLET) 1 mg DAILY PO 09/24/24 09:00 10/24/24 08:59 09/28/24 08:14 1 MG Hydrocortisone Acetate (anuSOL-HC 25MG SUPP) 1 supp DAILY MS 09/23/24 22:30 10/23/24 22:29 09/28/24 08:13 1 SUPP Iron Sucrose 300 mg/Sodium Chloride 250 ml @ 83 mls/hr Q24H IV 09/23/24 18:00 09/26/24 21:12 DC 09/25/24 17:32 83 MLS/HR Lidocaine HCl (Lidocaine HCl 1% 20ml Vial) 20 ml ONCE STAT INJ 09/23/24 08:46 09/23/24 08:50 DC 09/23/24 09:03 20 ML Morphine Sulfate (morPHINE 2MG SYG) 2 mg Q6H PRN IVP SEVERE PAIN (7-10) 09/23/24 15:00 09/30/24 14:59 09/25/24 17:32 2 MG Ondansetron HCl (zoFRAN 4MG INJ) 4 mg Q6H PRN IVP NAUSEA/VOMITING 09/23/24 15:00 10/23/24 14:59 Pantoprazole Sodium (PROTonix 40MG INJ) 40 mg Q12H IVP 09/23/24 14:30 09/24/24 08:24 DC 09/23/24 19:43 40 MG Pantoprazole Sodium (PROTonix 40MG TAB) 40 mg DAILY PO 09/24/24 09:00 10/24/24 08:59 09/28/24 08:14 40 MG Potassium Chloride 100 ml @ 100 mls/hr AD PRN IV POTASSIUM PROTOCOL 09/24/24 16:30 10/24/24 16:29 Potassium Chloride (K-Dur/Klor-Con 20meq) 20 meq AD PRN PO POTASSIUM PROTOCOL 09/24/24 16:30 10/24/24 16:29 09/25/24 14:50 20 MEQ Potassium Chloride (KCl 10% Elixir 20meq/15ml) 20 meq AD PRN PO POTASSIUM PROTOCOL 09/24/24 16:30 10/24/24 16:29 Sodium Chloride 1,000 ml @ 75 mls/hr [id number] IV 09/23/24 14:30 09/25/24 11:16 DC 09/25/24 06:30 75 MLS/HR Vitamin B Complex (Vitamin B-12) 1,000 mcg DAILY PO 09/24/24 09:00 09/26/24 14:41 DC 09/26/24 09:13 1,000 MCG Vitamin B Complex (Vitamin B-12) 1,000 mcg DAILY SQ 09/27/24 09:00 10/27/24 08:59 09/28/24 08:14 1,000 MCG DIAGNOSTICS / RADIOLOGY: [ ] ASSESSMENT: Thrombosed hemorrhoids POA Severe iron Deficiency anemia, POA Acute on chronic anemia likely secondary to chronic GI bleeding, POA Rectal thickening with concerns for possible rectal prolapse versus hemorrhoids vs mass, POA Hiatal hernia, POA Prior history of hemorrhoids and rectal prolapse, POA Mormon declining blood product transfusion, POA Hypokalemia, POA PLAN: Admit: medical-surgical floor under telemetry monitoring consultants: GI , hematology surgeon and colorectal surgeon will monitor H/H trends while on IV Venofer : declined any blood product transfusion Jehovah Witness, oral supplements: daily folic acid and vitamin B12 supplementation IV Venofer 200 mg daily longstanding history of rectal prolapse and small hiatal hernia : no surgical intervention per Dr Brooks. DR Johnson: Scheduled surgery today hemorrhoidectomy with recreation of patient's anal opening. wash anal opening with water easily to tolerate3 times a day as well as after every bowel movement Electrolytes protocol to keep potassium above 4.0 and magnesium above 2.0 supportive measures: SCDs for DVT prophylaxis cbc,cmp in am Fall precautions coli in reach for assistance All questions addressed Further orders as per response to treatment ATTESTATION BY PHYSICIAN I have seen and examined the patient. I reviewed the documentation, medical decision making, and treatment plan as noted by the mid-level provider above. I agree with the findings and plan of care. Margo Cadena MD, ELIZABETH NP Sep 28, 2024 09:29
--- NOTE | 2024-09-28 10:00 | PN ---
This is a 59-year-old male who is a Yazidi with history of anemia, prior history of hemorrhoids, prior history of rectal prolapse, who presented to the ER for further evaluation of rectal pain, tenesmus. Pain started about 3-4 days ago and is worsened with having a bowel movement. Patient also noticed blood after wiping the anal region.On presentation to the hospital, patient was noted to be afebrile with T-max of 98.8 F, heart rate of 82, blood pressure of 147/82. Labs on presentation showed WBC count of 4200, hemoglobin of 6.1, platelet count of [id number]. BMP remarkable for sodium of 143, potassium 3.3, BUN of 11 , creatinine 0.8. Underwent CT abdomen pelvis without IV contrast showed irregular rectal wall thickening. Per ER physician, rectal examination showed nodular irregular swelling in the perianal area with hemorrhoids and possible rectal mass. Patient was admitted for further evaluation and management. Hematology is consulted for severe anemia. Patient Yazidi and does not accept blood products. Patient was stopped on folic acid and vitamin B12. Patient also on IV iron. This patient may be could benefit from Procrit today There is plan may be for surgery to be done PHYSICAL EXAM VITALS: Vital Signs Date Time Temp Pulse Resp B/P (MAP) Pulse Ox O2 Delivery O2 Flow Rate FiO2 09/26/24 11:18 98.6 68 16 111/68 99 Room Air 09/26/24 08:00 0 21 GENERAL: ALERT, ORIENTED, APPEARS-NO ACUTE DISTRESS EYES: SCLERAE ANICTERIC, PUPILS EQUAL/REACTIVE, EXTRAOCULAR MUSCLES INTCT ENT/NECK: ORAL MUCOSA W/O LESIONS, OROPHARYNX IS CLEAR, NECK SUPPLE W/O MASSES RESPIRATORY: LUNGS CLEAR-AUSC/PERCUS CARDIOVASCULAR: REGULAR RATE, REGULAR RHYTHM GASTROINTESTINAL: ABDOMEN IS SOFT, DISTENDED, BOWEL SOUNDS PRESENT, PALPABLE MASSES (Thrombosed multiple hemorrhoids versus necrotic mass seen at anal opening, bleed on touch) HEMATOLOGY/LYMPHATIC: No CERVICAL ADENOPATHY, No SUPRACLAVICULR ADENOPATHY, No AXILLARY ADENOPATHY, No INGUINAL ADENOPATHY IMPRESSION Severe iron Deficiency anemia, POA Acute on chronic anemia likely secondary to chronic GI bleeding, POA Rectal thickening with concerns for possible thrombosed hemorrhoids vs fungating mass, POA Hiatal hernia, POA Prior history of hemorrhoids and rectal prolapse, POA Yazidi declining blood product transfusion, POA Hypokalemia, POA PLAN 1. Hemoglobin level improved at 7.6 g/deciliter. This patient to be continued on IV iron while he is in the hospital 2. Patient to have CBC with pediatric tube to be done tomorrow. 3. Patient to receive Procrit 20,000 units subcu 4. Continue care as per surgery. Vitals/Labs Vital Signs Date Time Temp Pulse Resp B/P (MAP) Pulse Ox O2 Delivery O2 Flow Rate FiO2 09/28/24 07:28 98.1 76 17 116/77 96 Room Air 09/27/24 19:50 0 21 Laboratory Tests 09/28/24 05:09 Medications Current Medications Lidocaine HCl 20 ml ONCE STAT INJ Last administered on 09/23/24at 09:03; Start 09/23/24 at 08:46; Stop 09/23/24 at 08:50; Status DC Tetanus/ Diphtheria Toxoids Adsorbed 0.5 ml ONCE ONCE IM Last administered on 09/23/24at 09:06; Start 09/23/24 at 09:00; Stop 09/23/24 at 09:01; Status DC Acetaminophen 1,000 mg ONCE ONCE PO Last administered on 09/23/24at 13:54; Start 09/23/24 at 12:30; Stop 09/23/24 at 12:31; Status DC Lidocaine HCl 10 ml ONCE ONCE MM Last administered on 09/23/24at 13:54; Start 09/23/24 at 12:30; Stop 09/23/24 at 12:31; Status DC Sodium Chloride 1,000 ml @ 75 mls/hr [id number] IV Last administered on 09/25/24at 06:30; Start 09/23/24 at 14:30; Stop 09/25/24 at 11:16; Status DC Pantoprazole Sodium 40 mg Q12H IVP Last administered on 09/23/24at 19:43; Start 09/23/24 at 14:30; Stop 09/24/24 at 08:24; Status DC Potassium Chloride 20 meq ONCE ONCE PO; Start 09/23/24 at 15:00; Stop 09/23/24 at 15:01; Status DC Acetaminophen 650 mg Q6H PRN PO Last administered on 09/24/24at 20:56; Start 09/23/24 at 15:00; Stop 10/23/24 at 14:59 Ondansetron HCl 4 mg Q6H PRN IVP; Start 09/23/24 at 15:00; Stop 10/23/24 at 14:59 Morphine Sulfate 2 mg Q6H PRN IVP Last administered on 09/25/24at 17:32; Start 09/23/24 at 15:00; Stop 09/30/24 at 14:59 Iron Sucrose 300 mg/Sodium Chloride 250 ml @ 83 mls/hr Q24H IV Last administered on 09/25/24at 17:32; Start 09/23/24 at 18:00; Stop 09/26/24 at 21:12; Status DC Vitamin B Complex 1,000 mcg DAILY PO Last administered on 09/26/24at 09:13; Start 09/24/24 at 09:00; Stop 09/26/24 at 14:41; Status DC Folic Acid 1 mg DAILY PO Last administered on 09/28/24at 08:14; Start 09/24/24 at 09:00; Stop 10/24/24 at 08:59 Magnesium Citrate 296 ml ONCE ONCE PO Last administered on 09/23/24at 19:43; Start 09/23/24 at 18:30; Stop 09/23/24 at 18:31; Status DC Lactulose 20 gm ONCE ONCE PO Last administered on 09/23/24at 19:43; Start 09/23/24 at 18:30; Stop 09/23/24 at 18:31; Status DC Bisacodyl 10 mg ONCE ONCE PO Last administered on 09/23/24at 20:59; Start 09/23/24 at 21:00; Stop 09/23/24 at 21:01; Status DC Potassium Chloride 20 meq ONCE ONCE PO Last administered on 09/23/24at 20:59; Start 09/23/24 at 20:30; Stop 09/23/24 at 20:31; Status DC Morphine Sulfate 2 mg ONCE ONCE IVP Last administered on 09/23/24at 22:14; Start 09/23/24 at 21:30; Stop 09/23/24 at 21:31; Status DC Hydrocortisone Acetate 1 supp DAILY MO Last administered on 09/28/24at 08:13; Start 09/23/24 at 22:30; Stop 10/23/24 at 22:29 Ascorbic Acid 250 mg BID PO Last administered on 09/28/24at 08:13; Start 09/23/24 at 22:30; Stop 10/23/24 at 22:29 Midazolam HCl 2 mg STK-MED ONCE .ROUTE; Start 09/24/24 at 07:08; Stop 09/24/24 at 07:13; Status DC Glycopyrrolate 1 mg STK-MED ONCE .ROUTE; Start 09/24/24 at 07:08; Stop 09/24/24 at 07:13; Status DC Ketamine HCl 50 mg STK-MED ONCE .ROUTE; Start 09/24/24 at 07:08; Stop 09/24/24 at 07:13; Status DC Propofol 200 mg STK-MED ONCE IV; Start 09/24/24 at 07:08; Stop 09/24/24 at 07:13; Status DC Phenylephrine HCl 10 mg STK-MED ONCE IV; Start 09/24/24 at 07:08; Stop 09/24/24 at 07:13; Status DC Lidocaine HCl 100 mg STK-MED ONCE .ROUTE; Start 09/24/24 at 07:09; Stop 09/24/24 at 07:13; Status DC Pantoprazole Sodium 40 mg DAILY PO Last administered on 09/28/24at 08:14; Start 09/24/24 at 09:00; Stop 10/24/24 at 08:59 Potassium Chloride 100 ml @ 100 mls/hr AD PRN IV; Start 09/24/24 at 16:30; Stop 10/24/24 at 16:29 Potassium Chloride 20 meq AD PRN PO; Start 09/24/24 at 16:30; Stop 10/24/24 at 16:29 Potassium Chloride 20 meq AD PRN PO Last administered on 09/25/24at 14:50; Start 09/24/24 at 16:30; Stop 10/24/24 at 16:29 Epoetin Adam-epbx 20,000 unit ONCE SQ Last administered on 09/26/24at 18:29; Start 09/26/24 at 14:30; Stop 09/27/24 at 07:20; Status DC Vitamin B Complex 1,000 mcg DAILY SQ Last administered on 09/28/24at 08:14; Start 09/27/24 at 09:00; Stop 10/27/24 at 08:59 Ferric Sodium Gluconate Complex 125 mg/Sodium Chloride 110 ml @ 110 mls/hr Q24H IV Last administered on 09/26/24at 21:43; Start 09/26/24 at 21:00; Stop 09/27/24 at 11:03; Status DC Epoetin Adam-epbx 10,000 unit ONCE ONCE SQ Last administered on 09/27/24at 14:50; Start 09/27/24 at 13:30; Stop 09/27/24 at 13:31; Status DC Iron Sucrose 200 mg DAILY IV; Start 09/29/24 at 09:00; Stop 09/28/24 at 09:29; Status DC DALI MA MD Sep 28, 2024 09:59
[2024-09-29] VITALS (30 sets, daily range): BP systolic 112–151; BP diastolic 61–94; PULSE 60–90; RESP 14–20; TEMP 97.6–99.3; O2SAT 97–100
[2024-09-29] MEDS ORDERED: LIDOCAINE PF 100MG/5ML (2%) SYRINGE 5ML ONE (06:10)
[2024-09-29] MEDS ORDERED: NEOSTIGMINE METHYLSULFATE 1MG/ML IV ONE (06:10)
[2024-09-29] MEDS ORDERED: GLYCOPYRROLATE 0.2 MG/ML 5 ML VIAL ONE (06:10)
[2024-09-29] MEDS ORDERED: SUCCINYLCHOLINE CHLORIDE 20 MG/ML 10 ML VIAL ONE (06:11)
[2024-09-29] MEDS ORDERED: MIDAZOLAM HCL 1 MG/ML 2ML VIAL ONE (06:11)
[2024-09-29] MEDS: SUGAMMADEX SODIUM 200 MG/2 ML VIAL IV ONE (06:21)
[2024-09-29] MEDS ORDERED: ALBUTEROL INHALER 90MCG/INH IH ONE (06:23)
--- NOTE | 2024-09-29 07:27 | OP ---
Operative Note: DATE OF PROCEDURE: 09/29/24 SURGEON: JAZLYN DEL ROSARIO MD [employer] REPORTER: [Penelope Yrok CFA] ANESTHESIA: [General endotracheal anesthesia] ANESTHESIOLOGIST/ENGINE ASSEMBLER: [[facility] anesthesia team] PREOPERATIVE DIAGNOSIS: [Thrombosed prolapsing internal external hemorrhoids two complexes] POSTOPERATIVE DIAGNOSIS: [Same] SYNOPSIS: [Thrombosed bleeding prolapsing internal external hemorrhoid, two complexes Examination under anesthesia and excision of two hemorrhoidal complexes Appropriate hemostasis Sphincter muscle protected All sponges and instruments were accounted for at the end the case Patient tolerated the procedure well, there no complications] PROCEDURE: [Excision of two thrombosed prolapsing hemorrhoidal complexes] ESTIMATED BLOOD LOSS: [Less than 50 cc] INDICATIONS: [Thrombus bleeding internal accident hemorrhoids multiple complex is] DESCRIPTION OF PROCEDURE: [On day of surgery patient presented to the hospital. Patient was brought back to operating room. Positioned in the supine position. Preoperative antibiotics were given. Bilateral SCDs were placed. Patient was intubated. Patient then was positioned in the lithotomy position. Patient then was prepped and draped the usual fashion. A digital rectal exam was conducted. The hemorrhoidal complexes that were bleeding were palpated. They were internal external components. The two components one in the right lateral component, one at the left superior lateral component. My attention was 1st turned to the right lateral component. A anal dilator was placed. Chromic stitch was placed of the apex of the internal hemorrhoids. Then utilizing Bovie after instilling local anesthetic the internal external hemorrhoids were excised in total while maintaining the sphincter. Careful attention was made so as not to injure the sphincter mechanism. Then entire internal external hemorrhoid complex was excised. Appropriate hemostasis was obtained with the Bovie. Then the mucosa was closed up to the dentate line with a chromic suture. Then my attention was turned to the 2nd hemorrhoidal complex that was on the left superior lateral position. Chromic stitch was placed of the apex of the internal hemorrhoids. Then utilizing Bovie after instilling local anesthetic the internal external hemorrhoids were excised in total while maintaining the sphincter. Careful attention was made so as not to injure the sphincter mechanism. Then entire internal external hemorrhoid complex was excised. Appropriate hemostasis was obtained with the Bovie. Then the mucosa was closed up to the dentate line with a chromic suture. The sphincter patency was verified. Then the anal area was copiously irrigated. All irrigation was removed. Appropriate hemostasis was observed. Then dry since were placed. Patient then was woken up, transferred to a stretcher, taken to recovery room to recovery. All sponges and instruments were accounted for at the end the case. Patient tolerated the procedure well, there no complications.] JAZLYN DEL ROSARIO MD Sep 29, 2024 07:27
--- NOTE | 2024-09-29 08:30 | NUR ---
PT returns to floor post procedure, vitals within normal limits c/o pain at surgical site, dressing clean dry intact
--- NOTE | 2024-09-29 09:40 | PN ---
[facility] PROGRESS NOTE Date of Service: Sep 29, 2024 Time of Service: 09:39 SUBJECTIVE: [ ] This is a 59-year-old male who is a Latter day with history of anemia, prior history of hemorrhoids, possible prior history of rectal prolapse, who presented to the ER for further evaluation of rectal pain, tenesmus with having a bowel movement. Pain started about 3-4 days ago and is worsened with having a bowel movement. Patient also noticed blood with wiping. Patient states that he saw his PCP few days ago and was referred to a specialist for further evaluation. Reports having previous history of hemorrhoids as well with intermittent mild bleeding. Patient reports that maybe about 10 years ago, he had possible history of rectal prolapse which was reduced by a specialist. He has had colonoscopy 5-6 years ago and does not remember the results. Denies any significant fevers or chills otherwise. Denies previous history of GI issues. Patient states that he is using ibuprofen about four times a day for pain con trol for about a week. He has also been taking iron. He has noticed that few days ago, stool was dark in color. Denies any hematemesis. 09/24/2024. Patient went for EGD this morning. Patient continues with IV Venofer given to patient's sabianism Jehovah Witness decline blood transfusion latest hemoglobin 6.3. As per Dr. Quintanilla colonoscopy we will be placed on hold for now given to patient's hemoglobin remains below seven. Patient denies abdominal pain patient reports having dark stools post EGD. We will monitor patient closely denied shortness a breath advised patient to use coli for assistance to bathroom voiced understanding. 09/26/23 patient was seen earlier. Denies any rectal bleeding but continues with rectal pain when he has a bowel movement. Patient reports he has seen a colorectal surgeon in the past from [facility] he will wait for his family members to provide information. Denies fever chills nausea or vomiting. Continue with IV iron latest hemoglobin 6.4 09/27/2023 patient was seen earlier patient is lying in bed continues with rectal pain when he has a bowel movement we will bring in Colorectal surgeon to evaluate patient. Denies any rectal bleed. We continue with IV Venofer we will received his last dose today. 09/27/24 the patient was seen earlier patient was evaluated by colorectal surgeon I appreciate his put review his note in detail patient has thrombosed hemorrhoids his recommendations hemorrhoidectomy with recreation of patient's anal opening. Patient wants to proceed with procedure primary nurse to reach out to surgeon to schedule patient possible tomorrow. 09/28/24 PATIENT IS SEEN EARLIER PATIENT IS SCHEDULED FOR SURGERY THIS AFTERNOON. PATIENT WILL CONTINUE TO RECEIVE IV VENOFER DURING THE COURSE OF STAY. LATEST HEMOGLOBIN 7.6 PATIENT DENIED CHEST PAIN OR SHORTNESS FOR BREATH. 09/29/24 S/P HEMORRHOIDECTOMY POD 0 patient is having rectal pain postop we will get one dose of Dilaudid 0.5 x. We will monitor for bleeding he is currently on Venofer IV. Denied chest pain or shortness for breath REVIEW OF SYSTEMS CONSTITUTIONAL: Denies fevers, chills, or night sweats. No unintentional weight loss reported. NEUROLOGICAL: Denies headache, amaurosis fugax, motor weakness, sensory deficit, vertigo/spinning sensation, gait abnormalities, or tremors. ENT: No hearing loss, otalgia, otorrhea, rhinitis, rhinorrhea, hoarseness, or sore throat. CARDIOVASCULAR: Denies any exertional angina, dyspnea on exertion, orthopnea, paroxysmal nocturnal dyspnea, palpitations, life-threatening arrhythmias, c laudication. PULMONARY: Denies any shortness of breath, cough, phlegm/sputum, hemoptysis, pleuritic chest pain. SLEEP: Denies morning headaches, daytime somnolence or napping. Denies difficulty falling asleep, staying asleep, waking from sleep. Denies knowledge of snoring. GASTROINTESTINAL: rectal pain, tenesmus, hx of hemorrhoids, hematochezia when he wipes GENITOURINARY: Denies frequency, urgency, nocturia, hematuria or incontinence (Storage/Irritative symptoms.) Low urinary stream, straining to void, urinary intermittency or hesitancy, splitting of the voiding stream, terminal dribbling. ENDOCRINOLOGIC: Denies polyuria, polydipsia, polyphagia or heat/cold intolerances. HEMATOLOGIC: Denies thrombophilia/previous clots, or coagulopathy/bleeding disorders. ONCOLOGIC: Denies personal history of malignancy. DERMATOLOGIC: Denies rashes or pruritus. PSYCHIATRIC: Denies any suicidal or homicidal ideation. Denies hallucinations. PHYSICAL EXAM GENERAL APPEARANCE: The patient is awake, alert, and oriented, in no acute cardiopulmonary distress. NEUROLOGICAL: Cranial nerves II-XII grossly intact. Motor is 5/5 in bilateral upper and lower extremities proximal to distal. No sensory deficits. HEENT: Face is symmetric. Pupils are equal and reactive. Extraocular movements are intact. NECK: Supple. No JVD. No thyromegaly. No submental, submandibular, pre-/p ostauricular, occipital or supraclavicular lymphadenopathy. CHEST: Normal chest expansion. No Telemetry. LUNGS: Absence of any rales, rhonchi or any wheezing. CARDIOVASCULAR: Regular. S1 and S2 normal. No appreciable rubs, murmurs or gallops. ABDOMEN: Soft, nontender, and nondistended. There is no rebound, voluntary guarding, or rigidity. : couldn't do a through rectal exam due to pain, there is swelling around to anorectal region with possible hemorrhoids or prolapse EXTREMITIES: Non-edematous and not cyanotic. No clubbing. Good capillary refill. SKIN: No skin breakdown. Vital Signs (last 8hr) Date Time Temp Pulse Resp B/P (MAP) Pulse Ox O2 Delivery O2 Flow Rate FiO2 09/29/24 08:30 98.2 84 18 123/73 96 Room Air 09/29/24 08:29 97.9 81 15 131/73 100 Nasal Cannula 2.0 09/29/24 08:24 86 16 128/61 100 Nasal Cannula 2.0 09/29/24 08:19 84 14 127/88 100 Nasal Cannula 2.0 09/29/24 08:14 86 14 147/87 100 Nasal Cannula 2.0 09/29/24 08:09 84 14 136/83 100 Nasal Cannula 2.0 09/29/24 08:04 87 16 146/84 100 Nasal Cannula 2.0 09/29/24 07:59 86 14 136/85 100 Nasal Cannula 2.0 09/29/24 07:54 87 14 131/77 100 Nasal Cannula 2.0 09/29/24 07:49 88 14 145/82 100 Nasal Cannula 2.0 09/29/24 07:44 84 16 144/78 100 Nasal Cannula 2.0 09/29/24 07:39 84 16 115/79 100 Nonrebreathing Mask 10.0 09/29/24 07:34 80 15 147/69 100 Nonrebreathing Mask 10.0 09/29/24 07:29 97.5 87 16 112/79 100 Nonrebreathing Mask 10.0 09/29/24 03:48 98.8 90 20 145/88 98 Room Air LABS: Laboratory: Test 09/28/24 05:09 Range/Units White Blood Count 6.5 4.8-10.8 K/uL Red Blood Count 4.40 L 4.50-6.20 MIL/uL Hemoglobin 7.6 L 14.0-18.0 g/dL Hematocrit 29.4 L 42-54 % Mean Corpuscular Volume 66.8 L 79-99 fL Mean Corpuscular Hemoglobin 17.3 L 27.0-33.0 pg Mean Corpuscular Hemoglobin Concent 25.9 L 32.0-36.0 g/dL Red Cell Distribution Width 29.9 H 11.0-15.5 % Platelet Count 320 130-400 K/uL Mean Platelet Volume 9.2 7.5-10.5 fL Immature Granulocyte % (Auto) 0.9 0-1 % Neutrophils (%) (Auto) 66.1 40.0-77.0 % Lymphocytes (%) (Auto) 23.4 21.0-51.0 % Monocytes (%) (Auto) 8.5 3.0-13.0 % Eosinophils (%) (Auto) 0.6 0.0-8.0 % Basophils (%) (Auto) 0.5 0.0-5.0 % Neutrophils # (Auto) 4.3 1.8-7.7 K/uL Lymphocytes # (Auto) 1.5 1.0-4.8 K/uL Monocytes # (Auto) 0.6 0.1-1.0 K/uL Eosinophils # (Auto) 0.04 0.00-0.70 K/uL Basophils # (Auto) 0.03 0.00-0.20 K/uL Absolute Immature Granulocyte (auto 0.06 0-1 K/uL Nucleated Red Blood Cells 0.0 0.0-0.19 % Current Medications Medications (Trade) Dose Ordered Sig/Criselda Route PRN Reason Start Time Stop Time Status Last Admin Dose Admin Acetaminophen (TYLenol 325MG TAB) 650 mg Q6H PRN PO MILD PAIN (1-3) 09/23/24 15:00 10/23/24 14:59 09/29/24 09:09 650 MG Ascorbic Acid (Vitamin C 500mg Tab) 250 mg BID PO 09/23/24 22:30 10/23/24 22:29 09/29/24 09:08 250 MG Docusate Sodium (COLace 100MG CAP) 100 mg BID PO 09/29/24 21:00 10/29/24 20:59 Epoetin Adam-epbx (Retacrit) 20,000 unit ONCE SQ 09/26/24 14:30 09/27/24 07:20 DC 09/26/24 18:29 20,000 UNIT Ferric Sodium Gluconate Complex 125 mg/Sodium Chloride 110 ml @ 110 mls/hr Q24H IV 09/26/24 21:00 09/27/24 11:03 DC 09/26/24 21:43 110 MLS/HR Folic Acid (FOLic ACID 1 MG TABLET) 1 mg DAILY PO 09/24/24 09:00 10/24/24 08:59 09/29/24 09:09 1 MG Hydrocortisone Acetate (anuSOL-HC 25MG SUPP) 1 supp DAILY TN 09/23/24 22:30 10/23/24 22:29 09/28/24 08:13 1 SUPP Iron Sucrose (VenoFER) 200 mg DAILY IV 09/29/24 09:00 09/28/24 09:29 DC Iron Sucrose 300 mg/Sodium Chloride 250 ml @ 83 mls/hr Q24H IV 09/23/24 18:00 09/26/24 21:12 DC 09/25/24 17:32 83 MLS/HR Lidocaine HCl (Lidocaine HCl 1% 20ml Vial) 20 ml ONCE STAT INJ 09/23/24 08:46 09/23/24 08:50 DC 09/23/24 09:03 20 ML Morphine Sulfate (morPHINE 2MG SYG) 2 mg Q6H PRN IVP SEVERE PAIN (7-10) 09/23/24 15:00 09/28/24 17:59 DC 09/25/24 17:32 2 MG Ondansetron HCl (zoFRAN 4MG INJ) 4 mg Q6H PRN IVP NAUSEA/VOMITING 09/23/24 15:00 10/23/24 14:59 Pantoprazole Sodium (PROTonix 40MG INJ) 40 mg Q12H IVP 09/23/24 14:30 09/24/24 08:24 DC 09/23/24 19:43 40 MG Pantoprazole Sodium (PROTonix 40MG TAB) 40 mg DAILY PO 09/24/24 09:00 10/24/24 08:59 09/29/24 09:08 40 MG Potassium Chloride 100 ml @ 100 mls/hr AD PRN IV POTASSIUM PROTOCOL 09/24/24 16:30 10/24/24 16:29 Potassium Chloride (K-Dur/Klor-Con 20meq) 20 meq AD PRN PO POTASSIUM PROTOCOL 09/24/24 16:30 10/24/24 16:29 09/25/24 14:50 20 MEQ Potassium Chloride (KCl 10% Elixir 20meq/15ml) 20 meq AD PRN PO POTASSIUM PROTOCOL 09/24/24 16:30 10/24/24 16:29 Sodium Chloride 1,000 ml @ 75 mls/hr [id number] IV 09/23/24 14:30 09/25/24 11:16 DC 09/25/24 06:30 75 MLS/HR Tramadol HCl (UltRAM) 50 mg Q6H PRN PO MODERATE PAIN (4-6) 09/29/24 09:30 10/04/24 09:29 Vitamin B Complex (Vitamin B-12) 1,000 mcg DAILY PO 09/24/24 09:00 09/26/24 14:41 DC 09/26/24 09:13 1,000 MCG Vitamin B Complex (Vitamin B-12) 1,000 mcg DAILY SQ 09/27/24 09:00 10/27/24 08:59 09/29/24 09:09 1,000 MCG DIAGNOSTICS / RADIOLOGY: [ ] ASSESSMENT: Thrombosed hemorrhoids POA Severe iron Deficiency anemia, POA Acute on chronic anemia likely secondary to chronic GI bleeding, POA Rectal thickening with concerns for possible rectal prolapse versus hemorrhoids vs mass, POA Hiatal hernia, POA Prior history of hemorrhoids and rectal prolapse, POA Latter day declining blood product transfusion, POA Hypokalemia, POA PLAN: Admit: medical-surgical floor under telemetry monitoring consultants: GI , hematology surgeon and colorectal surgeon will monitor H/H trends while on IV Venofer : declined any blood product transfusion Jehovah Witness, oral supplements: daily folic acid and vitamin B12 supplementation IV Venofer 200 mg daily longstanding history of rectal prolapse and small hiatal hernia : no surgical intervention per Dr Brooks. DR Johnson: Today surgery hemorrhoidectomy with recreation of patient's anal opening. We will follow surgeon's recommendation on rectal wash. Electrolytes protocol to keep potassium above 4.0 and magnesium above 2.0 supportive measures: SCDs for DVT prophylaxis cbc,cmp in am Fall precautions Pain management tramadol as needed Dilaudid 0 point mg IV x1 All questions addressed Further orders as per response to treatment ATTESTATION BY PHYSICIAN I have seen and examined the patient. I reviewed the documentation, medical decision making, and treatment plan as noted by the mid-level provider above. I agree with the findings and plan of care. Margo Cadena MD, ELIZABETH NP Sep 29, 2024 09:40
--- NOTE | 2024-09-29 13:14 | PN ---
This is a 59-year-old male who is a Cheondoism with history of anemia, prior history of hemorrhoids, prior history of rectal prolapse, who presented to the ER for further evaluation of rectal pain, tenesmus. Pain started about 3-4 days ago and is worsened with having a bowel movement. Patient also noticed blood after wiping the anal region.On presentation to the hospital, patient was noted to be afebrile with T-max of 98.8 F, heart rate of 82, blood pressure of 147/82. Labs on presentation showed WBC count of 4200, hemoglobin of 6.1, platelet count of [id number]. BMP remarkable for sodium of 143, potassium 3.3, BUN of 11 , creatinine 0.8. Underwent CT abdomen pelvis without IV contrast showed irregular rectal wall thickening. Per ER physician, rectal examination showed nodular irregular swelling in the perianal area with hemorrhoids and possible rectal mass. Patient was admitted for further evaluation and management. Hematology is consulted for severe anemia. Patient Cheondoism and does not accept blood products. Patient was stopped on folic acid and vitamin B12. Patient also on IV iron. This patient may be could benefit from Procrit today Surgery yesterday with the patient is tolerating treatment well. PHYSICAL EXAM VITALS: Vital Signs Date Time Temp Pulse Resp B/P (MAP) Pulse Ox O2 Delivery O2 Flow Rate FiO2 09/26/24 11:18 98.6 68 16 111/68 99 Room Air 09/26/24 08:00 0 21 GENERAL: ALERT, ORIENTED, APPEARS-NO ACUTE DISTRESS EYES: SCLERAE ANICTERIC, PUPILS EQUAL/REACTIVE, EXTRAOCULAR MUSCLES INTCT ENT/NECK: ORAL MUCOSA W/O LESIONS, OROPHARYNX IS CLEAR, NECK SUPPLE W/O MASSES RESPIRATORY: LUNGS CLEAR-AUSC/PERCUS CARDIOVASCULAR: REGULAR RATE, REGULAR RHYTHM GASTROINTESTINAL: ABDOMEN IS SOFT, DISTENDED, BOWEL SOUNDS PRESENT, PALPABLE MASSES (Thrombosed multiple hemorrhoids versus necrotic mass seen at anal opening, bleed on touch) HEMATOLOGY/LYMPHATIC: No CERVICAL ADENOPATHY, No SUPRACLAVICULR ADENOPATHY, No AXILLARY ADENOPATHY, No INGUINAL ADENOPATHY IMPRESSION Severe iron Deficiency anemia, POA Acute on chronic anemia likely secondary to chronic GI bleeding, POA Rectal thickening with concerns for possible thrombosed hemorrhoids vs fungating mass, POA Hiatal hernia, POA Prior history of hemorrhoids and rectal prolapse, POA Cheondoism declining blood product transfusion, POA Hypokalemia, POA PLAN 1. Hemoglobin level improved at 7.6 g/deciliter. This patient to be continued on IV iron while he is in the hospital 2. Patient to have CBC with pediatric tube to be done tomorrow. 3. Patient to receive Procrit 20,000 units subcu 4. Continue care as per surgery. Vitals/Labs Vital Signs Date Time Temp Pulse Resp B/P (MAP) Pulse Ox O2 Delivery O2 Flow Rate FiO2 09/29/24 08:30 98.2 84 18 123/73 96 Room Air 09/29/24 08:29 2.0 09/28/24 20:00 21 Medications Current Medications Lidocaine HCl 20 ml ONCE STAT INJ Last administered on 09/23/24at 09:03; Start 09/23/24 at 08:46; Stop 09/23/24 at 08:50; Status DC Tetanus/ Diphtheria Toxoids Adsorbed 0.5 ml ONCE ONCE IM Last administered on 09/23/24at 09:06; Start 09/23/24 at 09:00; Stop 09/23/24 at 09:01; Status DC Acetaminophen 1,000 mg ONCE ONCE PO Last administered on 09/23/24at 13:54; Start 09/23/24 at 12:30; Stop 09/23/24 at 12:31; Status DC Lidocaine HCl 10 ml ONCE ONCE MM Last administered on 09/23/24at 13:54; Start 09/23/24 at 12:30; Stop 09/23/24 at 12:31; Status DC Sodium Chloride 1,000 ml @ 75 mls/hr [id number] IV Last administered on 09/25/24at 06:30; Start 09/23/24 at 14:30; Stop 09/25/24 at 11:16; Status DC Pantoprazole Sodium 40 mg Q12H IVP Last administered on 09/23/24at 19:43; Start 09/23/24 at 14:30; Stop 09/24/24 at 08:24; Status DC Potassium Chloride 20 meq ONCE ONCE PO; Start 09/23/24 at 15:00; Stop 09/23/24 at 15:01; Status DC Acetaminophen 650 mg Q6H PRN PO Last administered on 8/7/25at 09:09; Start 09/23/24 at 15:00; Stop 10/23/24 at 14:59 Ondansetron HCl 4 mg Q6H PRN IVP; Start 09/23/24 at 15:00; Stop 10/23/24 at 14:59 Morphine Sulfate 2 mg Q6H PRN IVP Last administered on 09/25/24at 17:32; Start 09/23/24 at 15:00; Stop 09/28/24 at 17:59; Status DC Iron Sucrose 300 mg/Sodium Chloride 250 ml @ 83 mls/hr Q24H IV Last administered on 09/25/24 17:32; Start 09/23/24 at 18:00; Stop 09/26/24 at 21:12; Status DC Vitamin B Complex 1,000 mcg DAILY PO Last administered on 09/26/24 09:13; Start 09/24/24 at 09:00; Stop 09/26/24 at 14:41; Status DC Folic Acid 1 mg DAILY PO Last administered on 09/29/24 09:09; Start 09/24/24 at 09:00; Stop 10/24/24 at 08:59 Magnesium Citrate 296 ml ONCE ONCE PO Last administered on 09/23/24at 19:43; Start 09/23/24 at 18:30; Stop 09/23/24 at 18:31; Status DC Lactulose 20 gm ONCE ONCE PO Last administered on 09/23/24at 19:43; Start 09/23/24 at 18:30; Stop 09/23/24 at 18:31; Status DC Bisacodyl 10 mg ONCE ONCE PO Last administered on 09/23/24at 20:59; Start 09/23/24 at 21:00; Stop 09/23/24 at 21:01; Status DC Potassium Chloride 20 meq ONCE ONCE PO Last administered on 09/23/24at 20:59; Start 09/23/24 at 20:30; Stop 09/23/24 at 20:31; Status DC Morphine Sulfate 2 mg ONCE ONCE IVP Last administered on 09/23/24at 22:14; Start 09/23/24 at 21:30; Stop 09/23/24 at 21:31; Status DC Hydrocortisone Acetate 1 supp DAILY AL Last administered on 09/28/24at 08:13; Start 09/23/24 at 22:30; Stop 10/23/24 at 22:29 Ascorbic Acid 250 mg BID PO Last administered on 09/29/24at 09:08; Start 09/23/24 at 22:30; Stop 10/23/24 at 22:29 Midazolam HCl 2 mg STK-MED ONCE .ROUTE; Start 09/24/24 at 07:08; Stop 09/24/24 at 07:13; Status DC Glycopyrrolate 1 mg STK-MED ONCE .ROUTE; Start 09/24/24 at 07:08; Stop 09/24/24 at 07:13; Status DC Ketamine HCl 50 mg STK-MED ONCE .ROUTE; Start 09/24/24 at 07:08; Stop 09/24/24 at 07:13; Status DC Propofol 200 mg STK-MED ONCE IV; Start 09/24/24 at 07:08; Stop 09/24/24 at 07:13; Status DC Phenylephrine HCl 10 mg STK-MED ONCE IV; Start 09/24/24 at 07:08; Stop 09/24/24 at 07:13; Status DC Lidocaine HCl 100 mg STK-MED ONCE .ROUTE; Start 09/24/24 at 07:09; Stop 09/24/24 at 07:13; Status DC Pantoprazole Sodium 40 mg DAILY PO Last administered on 09/29/24at 09:08; Start 09/24/24 at 09:00; Stop 10/24/24 at 08:59 Potassium Chloride 100 ml @ 100 mls/hr AD PRN IV; Start 09/24/24 at 16:30; Stop 10/24/24 at 16:29 Potassium Chloride 20 meq AD PRN PO; Start 09/24/24 at 16:30; Stop 10/24/24 at 16:29 Potassium Chloride 20 meq AD PRN PO Last administered on 09/25/24at 14:50; Start 09/24/24 at 16:30; Stop 10/24/24 at 16:29 Epoetin Adam-epbx 20,000 unit ONCE SQ Last administered on 09/26/24at 18:29; Start 09/26/24 at 14:30; Stop 09/27/24 at 07:20; Status DC Vitamin B Complex 1,000 mcg DAILY SQ Last administered on 09/29/24at 09:09; Start 09/27/24 at 09:00; Stop 10/27/24 at 08:59 Ferric Sodium Gluconate Complex 125 mg/Sodium Chloride 110 ml @ 110 mls/hr Q24H IV Last administered on 09/26/24at 21:43; Start 09/26/24 at 21:00; Stop 09/27/24 at 11:03; Status DC Epoetin Adam-epbx 10,000 unit ONCE ONCE SQ Last administered on 09/27/24at 14:50; Start 09/27/24 at 13:30; Stop 09/27/24 at 13:31; Status DC Iron Sucrose 200 mg DAILY IV; Start 09/29/24 at 09:00; Stop 09/28/24 at 09:29; Status DC Bupivacaine HCl 2.5 mg STK-MED ONCE IJ Last administered on 09/29/24at 06:57; Start 09/28/24 at 14:53; Stop 09/28/24 at 14:54; Status DC Dexamethasone Sodium Phosphate 10 mg STK-MED ONCE .ROUTE; Start 09/29/24 at 06:10; Stop 09/29/24 at 06:10; Status DC Lidocaine HCl 100 mg STK-MED ONCE .ROUTE; Start 09/29/24 at 06:10; Stop 09/29/24 at 06:10; Status DC Ondansetron HCl 4 mg STK-MED ONCE .ROUTE; Start 09/29/24 at 06:10; Stop 09/29/24 at 06:11; Status DC Glycopyrrolate 1 mg STK-MED ONCE .ROUTE; Start 09/29/24 at 06:10; Stop 09/29/24 at 06:11; Status DC Propofol 200 mg STK-MED ONCE IV; Start 09/29/24 at 06:10; Stop 09/29/24 at 06:11; Status DC Neostigmine Methylsulfate 10 mg STK-MED ONCE IV; Start 09/29/24 at 06:10; Stop 09/29/24 at 06:11; Status DC Succinylcholine Chloride 200 mg STK-MED ONCE .ROUTE; Start 09/29/24 at 06:11; Stop 09/29/24 at 06:11; Status DC Rocuronium [place] 50 mg STK-MED ONCE .ROUTE; Start 09/29/24 at 06:11; Stop 09/29/24 at 06:11; Status DC Fentanyl Citrate 100 mcg STK-MED ONCE .ROUTE; Start 09/29/24 at 06:11; Stop 09/29/24 at 06:11; Status DC Midazolam HCl 2 mg STK-MED ONCE .ROUTE; Start 09/29/24 at 06:11; Stop 09/29/24 at 06:12; Status DC Acetaminophen 100 ml @ As Directed STK-MED ONCE .ROUTE; Start 09/29/24 at 06:22; Stop 09/29/24 at 06:22; Status DC Albuterol Sulfate 1 inh STK-MED ONCE IH; Start 09/29/24 at 06:23; Stop 09/29/24 at 06:23; Status DC Cefazolin Sodium 1 gm STK-MED ONCE .ROUTE; Start 09/29/24 at 06:56; Stop 09/29/24 at 06:56; Status DC Fentanyl Citrate 100 mcg STK-MED ONCE .ROUTE; Start 09/29/24 at 07:00; Stop at 07:01; Status DC Cefazolin Sodium 2 gm STK-MED ONCE IVPB Last administered on 09/29/24at 06:58; Start 09/29/24 at 06:58; Stop 09/29/24 at 07:15; Status DC Fentanyl Citrate 100 mcg STK-MED ONCE .ROUTE Last administered on 09/29/24at 07:50; Start 09/29/24 at 07:46; Stop 09/29/24 at 07:46; Status DC Ketorolac Tromethamine 30 mg STK-MED ONCE .ROUTE Last administered on 09/29/24at 08:13; Start 09/29/24 at 08:10; Stop 09/29/24 at 08:11; Status DC Tramadol HCl 50 mg Q6H PRN PO; Start 09/29/24 at 09:30; Stop 10/04/24 at 09:29 Docusate Sodium 100 mg BID PO; Start 09/29/24 at 21:00; Stop 10/29/24 at 20:59 Hydromorphone HCl 0.5 mg ONCE ONCE IVP Last administered on 09/29/24at 09:47; Start 09/29/24 at 10:00; Stop 09/29/24 at 10:01; Status DC DALI MA MD Sep 29, 2024 13:14
[2024-09-29] MEDS: EPOETIN ALFA-EPBX (NON-ESRD) 10,000 UNIT/ML VIAL SQ ONE (14:15)
[2024-09-30 03:06] VITALS: BP 139/81; PULSE 80; RESP 16; TEMP 98.6
[2024-09-30 03:52] LABS: IMMATURE GRANULOCYTE ABSOLUTE 0.05 K/uL (0-1); NUCLEATED RED BLOOD CELLS 0.0 % (0.0-0.19); PLATELET COUNT (AUTO) 302 K/uL (130-400); RED BLOOD CELL COUNT(AUTO) 4.33 MIL/uL (4.50-6.20); RED CELL DISTRIBUTION WIDTH 33.2 % (11.0-15.5); WHITE BLOOD COUNT (AUTO) 12.6 K/uL (4.8-10.8)
[2024-09-30 08:00] VITALS: BP 143/87; PULSE 88; RESP 17; TEMP 98.3
--- NOTE | 2024-09-30 08:51 | PN ---
This is a 59-year-old male who is a Rastafari with history of anemia, prior history of hemorrhoids, prior history of rectal prolapse, who presented to the ER for further evaluation of rectal pain, tenesmus. Pain started about 3-4 days ago and is worsened with having a bowel movement. Patient also noticed blood after wiping the anal region.On presentation to the hospital, patient was noted to be afebrile with T-max of 98.8 F, heart rate of 82, blood pressure of 147/82. Labs on presentation showed WBC count of 4200, hemoglobin of 6.1, platelet count of 816130. BMP remarkable for sodium of 143, potassium 3.3, BUN of 11 , creatinine 0.8. Underwent CT abdomen pelvis without IV contrast showed irregular rectal wall thickening. Per ER physician, rectal examination showed nodular irregular swelling in the perianal area with hemorrhoids and possible rectal mass. Patient was admitted for further evaluation and management. Hematology is consulted for severe anemia. Patient Rastafari and does not accept blood products. Patient was stopped on folic acid and vitamin B12. Patient also on IV iron. Patient received Procrit yesterday. Surgery yesterday with the patient is tolerating treatment well. PHYSICAL EXAM VITALS: Vital Signs Date Time Temp Pulse Resp B/P (MAP) Pulse Ox O2 Delivery O2 Flow Rate FiO2 09/26/24 11:18 98.6 68 16 111/68 99 Room Air 09/26/24 08:00 0 21 GENERAL: ALERT, ORIENTED, APPEARS-NO ACUTE DISTRESS EYES: SCLERAE ANICTERIC, PUPILS EQUAL/REACTIVE, EXTRAOCULAR MUSCLES INTCT ENT/NECK: ORAL MUCOSA W/O LESIONS, OROPHARYNX IS CLEAR, NECK SUPPLE W/O MASSES RESPIRATORY: LUNGS CLEAR-AUSC/PERCUS CARDIOVASCULAR: REGULAR RATE, REGULAR RHYTHM GASTROINTESTINAL: ABDOMEN IS SOFT, DISTENDED, BOWEL SOUNDS PRESENT, PALPABLE MASSES (Thrombosed multiple hemorrhoids versus necrotic mass seen at anal opening, bleed on touch) HEMATOLOGY/LYMPHATIC: No CERVICAL ADENOPATHY, No SUPRACLAVICULR ADENOPATHY, No AXILLARY ADENOPATHY, No INGUINAL ADENOPATHY IMPRESSION Severe iron Deficiency anemia, POA Acute on chronic anemia likely secondary to chronic GI bleeding, POA Rectal thickening with concerns for possible thrombosed hemorrhoids vs fungating mass, POA Hiatal hernia, POA Prior history of hemorrhoids and rectal prolapse, POA Rastafari declining blood product transfusion, POA Hypokalemia, POA PLAN 1. Patient received blockade yesterday. Patient continues to be on iron folic acid and vitamin B12. 2. If CBC to be done to be in pediatric stool 3. We will follow-up with the result of pathology. 4. Continue care as per surgery. Vitals/Labs Vital Signs Date Time Temp Pulse Resp B/P (MAP) Pulse Ox O2 Delivery O2 Flow Rate FiO2 09/30/24 03:06 98.6 80 16 139/81 97 Room Air 09/29/24 20:00 0 21 Laboratory Tests 09/30/24 03:35 Medications Current Medications Lidocaine HCl 20 ml ONCE STAT INJ Last administered on 09/23/24at 09:03; Start 09/23/24 at 08:46; Stop 09/23/24 at 08:50; Status DC Tetanus/ Diphtheria Toxoids Adsorbed 0.5 ml ONCE ONCE IM Last administered on 09/23/24at 09:06; Start 09/23/24 at 09:00; Stop 09/23/24 at 09:01; Status DC Acetaminophen 1,000 mg ONCE ONCE PO Last administered on 09/23/24at 13:54; Start 09/23/24 at 12:30; Stop 09/23/24 at 12:31; Status DC Lidocaine HCl 10 ml ONCE ONCE MM Last administered on 09/23/24at 13:54; Start 09/23/24 at 12:30; Stop 09/23/24 at 12:31; Status DC Sodium Chloride 1,000 ml @ 75 mls/hr [id number] IV Last administered on 09/25/24at 06:30; Start 09/23/24 at 14:30; Stop 09/25/24 at 11:16; Status DC Pantoprazole Sodium 40 mg Q12H IVP Last administered on 09/23/24at 19:43; Start 09/23/24 at 14:30; Stop 09/24/24 at 08:24; Status DC Potassium Chloride 20 meq ONCE ONCE PO; Start 09/23/24 at 15:00; Stop 09/23/24 at 15:01; Status DC Acetaminophen 650 mg Q6H PRN PO Last administered on 09/29/24at 09:09; Start 09/23/24 at 15:00; Stop 10/23/24 at 14:59 Ondansetron HCl 4 mg Q6H PRN IVP; Start 09/23/24 at 15:00; Stop 10/23/24 at 14:59 Morphine Sulfate 2 mg Q6H PRN IVP Last administered on 09/25/24at 17:32; Start 09/23/24 at 15:00; Stop 09/28/24 at 17:59; Status DC Iron Sucrose 300 mg/Sodium Chloride 250 ml @ 83 mls/hr Q24H IV Last administered on 09/25/24at 17:32; Start 09/23/24 at 18:00; Stop 09/26/24 at 21:12; Status DC Vitamin B Complex 1,000 mcg DAILY PO Last administered on 09/26/24at 09:13; Start 09/24/24 at 09:00; Stop 09/26/24 at 14:41; Status DC Folic Acid 1 mg DAILY PO Last administered on 09/30/24at 08:39; Start 09/24/24 at 09:00; Stop 10/24/24 at 08:59 Magnesium Citrate 296 ml ONCE ONCE PO Last administered on 09/23/24at 19:43; Start 09/23/24 at 18:30; Stop 09/23/24 at 18:31; Status DC Lactulose 20 gm ONCE ONCE PO Last administered on 09/23/24at 19:43; Start 09/23/24 at 18:30; Stop 09/23/24 at 18:31; Status DC Bisacodyl 10 mg ONCE ONCE PO Last administered on 09/23/24at 20:59; Start 09/23/24 at 21:00; Stop 09/23/24 at 21:01; Status DC Potassium Chloride 20 meq ONCE ONCE PO Last administered on 09/23/24at 20:59; Start 09/23/24 at 20:30; Stop 09/23/24 at 20:31; Status DC Morphine Sulfate 2 mg ONCE ONCE IVP Last administered on 09/23/24at 22:14; Start 09/23/24 at 21:30; Stop 09/23/24 at 21:31; Status DC Hydrocortisone Acetate 1 supp DAILY MA Last administered on 09/30/24at 08:40; Start 09/23/24 at 22:30; Stop 10/23/24 at 22:29 Ascorbic Acid 250 mg BID PO Last administered on 09/30/24at 08:39; Start 09/23/24 at 22:30; Stop 10/23/24 at 22:29 Midazolam HCl 2 mg STK-MED ONCE .ROUTE; Start 09/24/24 at 07:08; Stop 09/24/24 at 07:13; Status DC Glycopyrrolate 1 mg STK-MED ONCE .ROUTE; Start 09/24/24 at 07:08; Stop 09/24/24 at 07:13; Status DC Ketamine HCl 50 mg STK-MED ONCE .ROUTE; Start 09/24/24 at 07:08; Stop 09/24/24 at 07:13; Status DC Propofol 200 mg STK-MED ONCE IV; Start 09/24/24 at 07:08; Stop 09/24/24 at 07:13; Status DC Phenylephrine HCl 10 mg STK-MED ONCE IV; Start 09/24/24 at 07:08; Stop 09/24/24 at 07:13; Status DC Lidocaine HCl 100 mg STK-MED ONCE .ROUTE; Start 09/24/24 at 07:09; Stop 09/24/24 at 07:13; Status DC Pantoprazole Sodium 40 mg DAILY PO Last administered on 09/30/24at 08:39; Start 09/24/24 at 09:00; Stop 10/24/24 at 08:59 Potassium Chloride 100 ml @ 100 mls/hr AD PRN IV; Start 09/24/24 at 16:30; Stop 10/24/24 at 16:29 Potassium Chloride 20 meq AD PRN PO; Start 09/24/24 at 16:30; Stop 10/24/24 at 16:29 Potassium Chloride 20 meq AD PRN PO Last administered on 09/25/24at 14:50; Start 09/24/24 at 16:30; Stop 10/24/24 at 16:29 Epoetin [place]-epbx 20,000 unit ONCE SQ Last administered on 09/26/24at 18:29; Start 09/26/24 at 14:30; Stop 09/27/24 at 07:20; Status DC Vitamin B Complex 1,000 mcg DAILY SQ Last administered on 09/30/24at 08:38; Start 09/27/24 at 09:00; Stop 10/27/24 at 08:59 Ferric Sodium Gluconate Complex 125 mg/Sodium Chloride 110 ml @ 110 mls/hr Q24H IV Last administered on 09/26/24at 21:43; Start 09/26/24 at 21:00; Stop 09/27/24 at 11:03; Status DC Epoetin Adam-epbx 10,000 unit ONCE ONCE SQ Last administered on 09/27/24at 14:50; Start 09/27/24 at 13:30; Stop 09/27/24 at 13:31; Status DC Iron Sucrose 200 mg DAILY IV; Start 09/29/24 at 09:00; Stop 09/28/24 at 09:29; Status DC Bupivacaine HCl 2.5 mg STK-MED ONCE IJ Last administered on 09/29/24at 06:57; Start 09/28/24 at 14:53; Stop 09/28/24 at 14:54; Status DC Dexamethasone Sodium Phosphate 10 mg STK-MED ONCE .ROUTE; Start 09/29/24 at 06:10; Stop 09/29/24 at 06:10; Status DC Lidocaine HCl 100 mg STK-MED ONCE .ROUTE; Start 09/29/24 at 06:10; Stop 09/29/24 at 06:10; Status DC Ondansetron HCl 4 mg STK-MED ONCE .ROUTE; Start 09/29/24 at 06:10; Stop 09/29/24 at 06:11; Status DC Glycopyrrolate 1 mg STK-MED ONCE .ROUTE; Start 09/29/24 at 06:10; Stop 09/29/24 at 06:11; Status DC Propofol 200 mg STK-MED ONCE IV; Start 09/29/24 at 06:10; Stop 09/29/24 at 06:11; Status DC Neostigmine Methylsulfate 10 mg STK-MED ONCE IV; Start 09/29/24 at 06:10; Stop 09/29/24 at 06:11; Status DC Succinylcholine Chloride 200 mg STK-MED ONCE .ROUTE; Start 09/29/24 at 06:11; Stop 09/29/24 at 06:11; Status DC Rocuronium [place] 50 mg STK-MED ONCE .ROUTE; Start 09/29/24 at 06:11; Stop 09/29/24 at 06:11; Status DC Fentanyl Citrate 100 mcg STK-MED ONCE .ROUTE; Start 09/29/24 at 06:11; Stop 09/29/24 at 06:11; Status DC Midazolam HCl 2 mg STK-MED ONCE .ROUTE; Start 09/29/24 at 06:11; Stop 09/29/24 at 06:12; Status DC Acetaminophen 100 ml @ As Directed STK-MED ONCE .ROUTE; Start 09/29/24 at 06:22; Stop 09/29/24 at 06:22; Status DC Albuterol Sulfate 1 inh STK-MED ONCE IH; Start 09/29/24 at 06:23; Stop 09/29/24 at 06:23; Status DC Cefazolin Sodium 1 gm STK-MED ONCE .ROUTE; Start 09/29/24 at 06:56; Stop 09/29/24 at 06:56; Status DC Fentanyl Citrate 100 mcg STK-MED ONCE .ROUTE; Start 09/29/24 at 07:00; Stop 09/29/24 at 07:01; Status DC Cefazolin Sodium 2 gm STK-MED ONCE IVPB Last administered on 09/29/24at 06:58; Start 09/29/24 at 06:58; Stop 09/29/24 at 07:15; Status DC Fentanyl Citrate 100 mcg STK-MED ONCE .ROUTE Last administered on 09/29/24at 07:50; Start 09/29/24 at 07:46; Stop 09/29/24 at 07:46; Status DC Ketorolac Tromethamine 30 mg STK-MED ONCE .ROUTE Last administered on 09/29/24at 08:13; Start 09/29/24 at 08:10; Stop 09/29/24 at 08:11; Status DC Tramadol HCl 50 mg Q6H PRN PO Last administered on 09/30/24at 06:10; Start 09/29/24 at 09:30; Stop 10/04/24 at 09:29 Docusate Sodium 100 mg BID PO Last administered on 09/30/24at 08:38; Start 09/29/24 at 21:00; Stop 10/29/24 at 20:59 Hydromorphone HCl 0.5 mg ONCE ONCE IVP Last administered on 09/29/24at 09:47; Start 09/29/24 at 10:00; Stop 09/29/24 at 10:01; Status DC Epoetin [place]-epbx 10,000 unit ONCE ONCE SQ Last administered on 09/29/24at 14:15; Start 09/29/24 at 14:00; Stop 09/29/24 at 14:01; Status DC DALI MA MD Sep 30, 2024 08:50
[2024-09-30] MEDS ORDERED: CYAN-35 PO (10:41)
[2024-09-30] MEDS ORDERED: FOLI1 PO (10:41)
--- NOTE | 2024-09-30 10:45 | DS ---
Discharge Summary Hospital Course Summary: This is a 59-year-old male who is a Taoism with history of anemia, prior history of hemorrhoids, possible prior history of rectal prolapse, who presented to the ER for further evaluation of rectal pain, tenesmus with having a bowel movement. Pain started about 3-4 days ago and is worsened with having a bowel movement. Patient also noticed blood with wiping. Patient states that he saw his PCP few days ago and was referred to a specialist for further evaluation. Reports having previous history of hemorrhoids as well with intermittent mild bleeding. Patient reports that maybe about 10 years ago, he had possible history of rectal prolapse which was reduced by a specialist. He has had colonoscopy 5-6 years ago and does not remember the results. Denies any significant fevers or chills otherwise. Denies previous history of GI issues. Patient states that he is using ibuprofen about four times a day for pain control for about a week. He has also been taking iron. He has noticed that few days ago, stool was dark in color. Denies any hematemesis. 09/24/2024. Patient went for EGD this morning. Patient continues with IV Venofer given to patient's rastafari Jehovah Witness decline blood transfusion latest hemoglobin 6.3. As per Dr. Quintanilla colonoscopy we will be placed on hold for now given to patient's hemoglobin remains below seven. Patient denies abdominal pain patient reports having dark stools post EGD. We will monitor p atient closely denied shortness a breath advised patient to use coli for assistance to bathroom voiced understanding. 09/26/23 patient was seen earlier. Denies any rectal bleeding but continues with rectal pain when he has a bowel movement. Patient reports he has seen a colorectal surgeon in the past from [facility] he will wait for his family members to provide information. Denies fever chills nausea or vomiting. Continue with IV iron latest hemoglobin 6.4 09/27/2023 patient was seen earlier patient is lying in bed continues with rectal pain when he has a bowel movement we will bring in Colorectal surgeon to evaluate patient. Denies any rectal bleed. We continue with IV Venofer we will received his last dose today. 09/27/24 the patient was seen earlier patient was evaluated by colorectal surgeon I appreciate his put review his note in detail patient has thrombosed hemorr hoids his recommendations hemorrhoidectomy with recreation of patient's anal opening. Patient wants to proceed with procedure primary nurse to reach out to surgeon to schedule patient possible tomorrow. 09/28/24 PATIENT IS SEEN EARLIER PATIENT IS SCHEDULED FOR SURGERY THIS AFTERNOON. PATIENT WILL CONTINUE TO RECEIVE IV VENOFER DURING THE COURSE OF STAY. LATEST HEMOGLOBIN 7.6 PATIENT DENIED CHEST PAIN OR SHORTNESS FOR BREATH. 09/29/24 S/P HEMORRHOIDECTOMY POD 0 patient is having rectal pain postop we will g et one dose of Dilaudid 0.5 x. We will monitor for bleeding he is currently on Venofer IV. Denied chest pain or shortness for breath 09/30/24 patient is lying in bed patient reports no rectal pain no bleeding. Hemoglobin improved 7.8 we will received one more dose on discharge oral supplements folic acid and vitamin B12 we will follow Dr. Perez, s/p day 1 hemorrhoidectomy recuperating well. Wash with soap and water post each bowel movement. Latest hemoglobin 7.8 Patient to follow-up with colorectal surgeon one-week postoperative visit pathology report. Patient is clinically and hemodynamically stable for discharge Sales Office Manager(s): REASON: SUSPICIOUS MALIGNANT PERIANAL LESION ORDERING PHYSICIAN: LAKEISHA ESTRADA MD PROCEDURE: ABD PEL WO - CT ABDOMEN/PELVIS W/O CONTRAST EXAM: CT Abdomen and Pelvis Without IV contrast CLINICAL HISTORY: SUSPICIOUS MALIGNANT PERIANAL LESION TECHNIQUE: Axial computed tomography images of the abdomen and pelvis without intravenous contrast. CONTRAST: No IV contrast. COMPARISON: None provided. FINDINGS: LUNG BASES: The lung bases appear clear. No pleural effusions are seen. LIVER: Unremarkable. GALLBLADDER AND BILE DUCTS: The gallbladder appears within normal limits. No radioopaque gallstones are seen. No biliary ductal dilatation is evident. PANCREAS: Unremarkable. SPLEEN: Unremarkable. ADRENAL GLANDS: Unremarkable. KIDNEYS, URETERS, AND BLADDER: The kidneys appear within normal limits. There is no hydronephrosis or hydroureter. No urinary calculi are seen. STOMACH AND BOWEL: Large sliding and paraesophageal hiatus hernia. Irregular thickening in the rectum. Tiny peripheral calcific foci. Colonic diverticulosis without diverticulitis. Unremarkable appearance of the small bowel. No evidence of bowel obstruction. APPENDIX: No evidence of acute appendicitis on CT examination. PERITONEUM: No free fluid. No free air. LYMPH NODES: No lymphadenopathy is evident. REPRODUCTIVE: Unremarkable as visualized. VASCULATURE: Atherosclerotic changes in the form of eccentric vessel wall calcification in the abdominal aorta and its major branches. No evidence of abdominal aortic aneurysm. BONES: Degenerative changes in the visualised spine in the form of marginal osteophytes and degenerative discs at multiple lumbar levels. Sclerotic focus at L2 vertebra. These may reflect bone islands. No aggressive appearing osseous lesion. No acute osseous pathology is evident. IMPRESSION: 1. Irregular rectal wall thickening. Suggested histopathological correlation. 2. Large sliding and paraesophageal hiatal hernia. 3. Colonic diverticulosis without diverticulitis. /[place] DICTATED BY: BRIAN MEDRANO Jr., MD DATE: 09/23/241441 ELECTRONICALLY SIGNED BY: BRIAN MEDRANO Jr., MD DATE: 09/23/241441 Procedure(s): Operative Note: DATE OF PROCEDURE: 09/29/24 SURGEON: JAZLYN JOHNSON MD DIRECTOR OF QUALITY CONTROL: [Penelope York CFA] ANESTHESIA: [General endotracheal anesthesia] ANESTHESIOLOGIST/CANTEEN MANAGER: [[facility] anesthesia team] PREOPERATIVE DIAGNOSIS: [Thrombosed prolapsing internal external hemorrhoids two complexes] POSTOPERATIVE DIAGNOSIS: [Same] SYNOPSIS: [Thrombosed bleeding prolapsing internal external hemorrhoid, two complexes Examination under anesthesia and excision of two hemorrhoidal complexes Appropriate hemostasis Sphincter muscle protected All sponges and instruments were accounted for at the end the case Patient tolerated the procedure well, there no complications] PROCEDURE: [Excision of two thrombosed prolapsing hemorrhoidal complexes] ESTIMATED BLOOD LOSS: [Less than 50 cc] INDICATIONS: [Thrombus bleeding internal accident hemorrhoids multiple complex i s] DESCRIPTION OF PROCEDURE: [On day of surgery patient presented to the hospital. Patient was brought back to operating room. Positioned in the supine position. Preoperative antibiotics were given. Bilateral SCDs were placed. Patient was intubated. Patient then was positioned in the lithotomy position. Patient then was prepped and draped the usual fashion. A digital rectal exam was conducted. The hemorrhoidal complexes that were bleeding were palpated. They were internal external components. The two components one in the right lateral component, one at the left superior lateral component. My attention was 1st turned to the right lateral component. A anal dilator was placed. Chromic stitch was placed of the apex of the internal hemorrhoids. Then utilizing Bovie after instilling local anesthetic the internal external hemorrhoids were excised in total while maintaining the sphincter. Careful attention was made so as not to injure the sphincter mechanism. Then entire internal external hemorrhoid complex was excised. Appropriate hemostasis was obtained with the Bovie. Then the mucosa was closed up to the dentate line with a chromic suture. Then my attention was turned to the 2nd hemorrhoidal complex that was on the left superior lateral position. Chromic stitch was placed of the apex of the internal hemorrhoids. Then utilizing Bovie after instilling local anesthetic the internal external hemorrhoids were excised in total while maintaining the sphincter. Careful attention was made so as not to injure the sphincter mechanism. Then entire internal external hemorrhoid complex was excised. Appropriate hemostasis was obtained with the Bovie. Then the mucosa was closed up to the dentate line with a chromic suture. The sphincter patency was verified. Then the anal area was copiously irrigated. All irrigation was removed. Appropriate hemostasis was observed. Then dry since were placed. Patient then was woken up, transferred to a stretcher, taken to recovery room to recovery. All sponges and instruments were accounted for at the end the case. Patient tolerated the procedure well, there no complications.] JAZLYN JOHNSON MD Sep 29, 2024 07:27 Electronically Signed by: JAZLYN JOHNSON MD09/29/24 0727 Electronically Co-Signed by: Assessment/Plan: Discharged dx's: Thrombosed hemorrhoids POA s/p hemorrhoidectomy with recreation of patient's anal opening. Severe iron Deficiency anemia, POA improved Acute on chronic anemia likely secondary to chronic GI bleeding, POA Rectal thickening with concerns for possible rectal prolapse versus hemorrhoids vs mass, POA Hiatal hernia, POA Prior history of hemorrhoids and rectal prolapse, POA Taoism declining blood product transfusion, POA Hypokalemia, POA PLAN: 09/23/2024 ADMISSION DATE: 09/23/2024 DISCHARGE DATE: 09/30/2024 DISPOSITION: Home CONDITION: stable LIVESTOCK BROKER(S): Colorectal surgeon general surgeon analysis reporting developer's FOLLOW UP APPOINTMENT(S): Dr Johnson one wk, dr Ana garcia wk. PROCEDURES: Hemorrhoidectomy IMAGING (S) report attached to summary : CT abdomen MICROBIOLOGY: report attached to summary; none ACTIVITY: Ad pat HOME MEDICATIONS remain the same NEW MEDICATIONS oral supplements folic acid and vitamin B12 TEACHING: GI soft diet wash spent with bottle water and salt anal post bowel movements Emergency instructions: The patient was instructed to present to the nearest Emergency Department or call 911 should their symptoms return or worsen. Discharge Instructions: Item Value Date Time White Blood Count 12.6 K/uL H 09/30/24 0335 Red Blood Count 4.33 MIL/uL L 09/30/24 033 Hemoglobin 7.8 g/dL L 09/30/24 033 Hematocrit 29.2 % L 09/30/24334 Mean Corpuscular Volume 67.4 fL L 09/30/24334 Mean Corpuscular Hemoglobin 18.0 pg L 09/30/24334 Mean Corpuscular Hemoglobin Concent 26.7 g/dL L 09/30/24334 Red Cell Distribution Width 33.2 % H 09/30/24334 Platelet Count 302 K/uL 09/30/24334 Mean Platelet Volume 9.2 fL 09/30/24334 Immature Granulocyte % (Auto) 0.4 % 09/30/24334 Neutrophils (%) (Auto) 79.7 % H 09/30/24334 Lymphocytes (%) (Auto) 14.1 % L 09/30/24 033 Monocytes (%) (Auto) 5.6 % 09/30/24334 Basophils (%) (Auto) 0.1 % 09/30/24334 Eosinophils (%) (Auto) 0.1 % 09/30/24 0335 Neutrophils # (Auto) 10.0 K/uL H 09/30/24 0335 Lymphocytes # (Auto) 1.8 K/uL 09/30/24 0335 Monocytes # (Auto) 0.7 K/uL 09/30/24 0335 Eosinophils # (Auto) 0.01 K/uL 09/30/24 0335 Basophils # (Auto) 0.01 K/uL 09/30/24 0335 Absolute Immature Granulocyte (auto 0.05 K/uL 09/30/24 0335 Sodium Level 142 mmol/L 09/25/24 0426 Potassium Level 3.4 mmol/L L 09/25/24 0426 Albumin 3.1 g/dL L 09/25/24 0426 Total Protein 6.2 g/dL 09/25/24 0426 Alkaline Phosphatase 64 U/L 09/25/24 0426 Alanine Aminotransferase (ALT/SGPT) 26 U/L 09/25/24 0426 Aspartate Amino Transf (AST/SGOT) 15 U/L 09/25/24 0426 Magnesium Level 2.20 mg/dL 09/25/24 0426 Total Calcium 8.7 mg/dL 09/25/24 0426 Random Glucose 92 mg/dL 09/25/24 042 Glomerular Filtration Rate Calc 86 mL/min 09/25/24 0426 Creatinine 1.0 mg/dL 09/25/24 0426 Blood Urea Nitrogen 9 mg/dL 09/25/24 0426 Carbon Dioxide Level 29 mmol/L 09/25/24 0426 Chloride Level 107 mmol/L 09/25/24 0426 Total Bilirubin 0.5 mg/dL 09/25/24 0426 Urine Color LIGHT-BROWN 09/23/24 1117 Urine Appearance CLEAR 09/23/24 1117 Urine pH 5.5 09/23/24 1117 Urine Specific [place] 1.011 09/23/24 1117 Urine Protein NEGATIVE mg/dL 09/23/24 1117 Urine Glucose (UA) NEGATIVE mg/dL 09/23/24 1117 Urine Ketones NEGATIVE mg/dL 09/23/24 1117 Urine Occult Blood NEGATIVE 09/23/24 1117 Urine Nitrate NEGATIVE 09/23/24 1117 Urine Bilirubin NEGATIVE mg/dL 09/23/24 1117 Urine Urobilinogen 0.2 mg/dL 09/23/24 1117 Urine Leukocyte Esterase NEGATIVE [place]/uL 09/23/24 1117 Stool Occult Blood NEGATIVE 09/24/24 0550 New Medications: Cyanocobalamin (Vitamin B-12) (Vitamin B-12) 1,000 Mcg Capsule 1 CAP PO DAILY for 30 Days, #30 CAP 0 Refills Folic Acid (Folvite) 1 Mg Tab 1 MG PO DAILY for 30 Days, #30 TAB Time spent arranging discharge: 31-60 minutes ATTESTATION BY PHYSICIAN I have seen and examined the patient. I reviewed the documentation, medical decision making, and treatment plan as noted by the mid-level provider above. I agree with the findings and plan of care. Margo Cadena MD, ELIZABETH NP Sep 30, 2024 10:45
[2024-09-30 12:00] VITALS: BP 119/82; PULSE 75; RESP 16; TEMP 98.2
--- NOTE | 2024-09-30 15:00 | NUR ---
Dr Menchaca returns page and wants the pt to follow up in 2 weeks. appointment is made for the patient. An appointment with Dr Perez is also made. Discharge instructiopns are given and explained. Pt is waiting for ride.
--- NOTE | 2024-09-30 15:21 | NUR ---
PT's PIV is removed and he is wheeld to a POV for departure.
== END 2024-09-30 15:15 | disposition home or self-care (01) | DRG 347 ==
LOC: EDH 08:17 → EDHIP 08:18 → UNDOADMIN 14:19 → EDHIP 14:19 → 4AH 15:43
PROVIDERS: ADMIT Internal Medicine; ATTEND Internal Medicine
PROC: 0DB98ZX Excision of Duodenum, Via Natural or Artificial Opening Endoscopic, Diagnostic (ICD-10-PCS; 2024-09-24)
PROC: 0DB68ZX Excision of Stomach, Via Natural or Artificial Opening Endoscopic, Diagnostic (ICD-10-PCS; 2024-09-24)
PROC: 0DB38ZX Excision of Lower Esophagus, Via Natural or Artificial Opening Endoscopic, Diagnostic (ICD-10-PCS; 2024-09-24)
PROC: 06BY0ZC Excision of Hemorrhoidal Plexus, Open Approach (ICD-10-PCS; principal; 2024-09-29 15:00)
DX: K64.5 Perianal venous thrombosis (principal); K21.01 Gastro-esophageal reflux disease with esophagitis, with bleeding; K29.01 Acute gastritis with bleeding; K57.31 Diverticulosis of large intestine without perforation or abscess with bleeding; D62 Acute posthemorrhagic anemia; K64.8 Other hemorrhoids; D50.9 Iron deficiency anemia, unspecified; K44.9 Diaphragmatic hernia without obstruction or gangrene; E87.6 Hypokalemia; K64.4 Residual hemorrhoidal skin tags; K62.3 Rectal prolapse; K59.00 Constipation, unspecified; J45.909 Unspecified asthma, uncomplicated; Z80.3 Family history of malignant neoplasm of breast
CPT/HCPCS: 36415; 43239; 74176; 80048; 80053; 80076; 81003; 82270; 82378; 82728; 82746; 83540; 83550; 83615; 83735; 84145; 84443; 85014; 85018; 85025; 85610; 85651; 85730; 86140; 88305; 88312; 90714; 99285; G0378; J0330; J0690; J1100; J1171; J1756; J1885; J2003; J2250; J2270; J2371; J2405; J2470; J2704; J2710; J2916; J3010; J3420; J3490; J7050; A4215; A4222; A4223; A4600; A4620; J0665; Q5106